=== PATIENT | male | born 1940 ===

== ENCOUNTER 2020-01-12 13:22 | Inpatient (IN) | payer MEDICARE, MEDICAID, SELFPAY ==
[2020-01-12] VITALS (12 sets, daily range): BP systolic 76–117; BP diastolic 49–88; PULSE 79–107; RESP 15–28; TEMP 36.6–36.8; O2SAT 96–100; BMI 43.3
--- NOTE | 2020-01-12 13:32 | ED_ITS ---
Entered by Roxi Neely, acting as scribe for Lexis Mon MD, [facility] [place] Bleed General: Chief complaint: GI Bleed Stated complaint: BLOODY STOOL, RESP DISTRESS Time Seen by Provider: 01/12/20 13:26 Source: patient, EMS and RN notes reviewed Mode of arrival: EMS Limitations: no limitations History of Present Illness: HPI Narrative: 79 yo male presents to ED with complaints of blood in his stool. He said this began a little bit last night and more this morning. He said he has gone twice today and one last night. He said there was a lot of blood today and it was bright red blood (EMS stated bright red and about 3 tablespoons of blood in commode). He said he has never had bleeding from his rectum before now and has never had hemorrhoids. His last colonoscopy was normal. He has COPD and is on oxygen at home. He has had no increased difficulty breathing. He said he began having abdominal pain last night and denies nausea. He said his bowel movements are soft and is a little lightheaded. (The patient states he had pain with the rectal exam.) The son states the blood was not in the stool and the toilet bowl had bright red blood. complaint: gross hematochezia Onset (ago): day(s) (1) Pain Consistency: constant Severity: severe Relieving factors: none Exacerbating factors: none Context: other (new onset) Associated symptoms: Reports abdominal pain (periumbilical, epigastric); Denies chills, fever(s), headache(s) or rash Treatments Prior to Arrival: none Review of Systems General: Reports: 10 or more systems reviewed and unremarkable except in HPI and below Const: Denies: fever, chills or body aches Eyes: Reports: blind spots; Denies: change in vision or blurry vision ENMT: Denies: throat pain, enlarged tonsils, painful swallowing, hoarseness, mouth pain or swelling of lips/tongue Card: Reports: chest pain; Denies: palpitations, irregular heart rhythm, edema or swelling of feet/ankles Resp: Denies: shortness of breath, productive cough or non-productive cough GI: Reports: abdominal pain (periumbilical, epigastric) : Denies: flank pain, painful urination, urinary frequency, urinary urgency or urinary hesitancy Musc: Denies: neck pain, back pain or extremity swelling Skin/Breast: Denies: rash, itching or redness Neuro: Denies: headache, numbness in extremities or weakness in extremities Endo: Denies: excessive urination, excessive thirst or tired all the time PFS ED PFSH: Medical History Advanced COPD Anxiety disorder Atrial fib/flutter, transient BPH (benign prostatic hyperplasia) Chronic anticoagulation Chronic steroid use Depression Hx of migraine headaches Osteoporosis Surgical History H/O pneumonectomy Family History Other CAD (coronary artery disease) Social History Smoking and tobacco status: former smoker Quit status (tobacco): has quit using tobacco Year quit tobacco: 40 ya Alcohol intake: never Household members: other Details: Son and [id number] Marital status: Current occupational status: retired Physical Exam Const: COMMON NORMALS: no apparent distress, average body habitus, oriented x3, no limitations, healthy appearing, alert and well nourished HENMT: COMMON NORMALS: normocephalic, head/scalp atraumatic and moist oral mucous membranes HEAD & SCALP: normocephalic and atraumatic Eye: COMMON NORMALS: PERRL, EOMs intact bilaterally, conjunctivae normal and no scleral icterus CONJUNCTIVA: Yes conjunctivae normal PUPIL: Yes PERRL Neck/C-Spine: COMMON NORMALS: full ROM, supple, no meningeal signs, no JVD and no carotid bruits Chest: COMMONS NORMALS: inspection of chest normal and palpation of chest normal Resp: COMMON NORMALS: normal respiratory effort, no retractions, no use of accessory muscles, clear to auscultation bilaterally and percussion normal AUSCULTATION: clear to auscultation bilaterally PERCUSSION: percussion normal Cardio: COMMON NORMALS: no JVD, regular rate, regular rhythm, S1 normal heart sound, S2 normal heart sound, no gallops, no clicks, no murmurs, no rub and peripheral pulses 2+ throughout RATE: regular rate RHYTHM: regular rhythm HEART SOUNDS: S1 normal and S2 normal PERIPHERAL PULSES: pulses 2+ throughout GI: COMMON NORMALS: normal to inspection, nondistended, normoactive bowel sounds, soft to palpation, no hepatosplenomegaly, no masses and no bruits PALPATION: Yes soft, Yes tender Details: other (epigastric) and Yes no hepatosplenomegaly RECTAL EXAM: Yes normal sphincter tone, Yes heme positive stool and Yes tenderness OTHER: gross blood on the gloved finger. : COMMON NORMALS: Yes no CVA tenderness BLADDER/KIDNEY EXAM: Yes no CVA tenderness Back/Pelvis: COMMON NORMALS: no CVA tenderness Extremity: COMMON NORMALS: normal to inspection, full ROM, normal capillary refill, no calf tenderness and no pedal edema Neuro: COMMON NORMALS: oriented x3 SENSORIUM/ORIENTATION: Yes alert MENINGEAL SIGNS: Yes no meningeal signs Skin: COMMON NORMALS: no rashes or lesions noted, no wounds, skin turgor normal, no jaundice, no petechiae and no mottling GENERAL SKIN EXAM: no rashes or lesions noted and turgor normal Course Consultations: Consultation #1: Dr. Christie, surgeon. The patient should be admitted to the hospitalist and he will see the patient on the floor. Consultation #2: Dr. Viramontes, he kindly accepted the patient to his service. Vital Signs: Vital signs: Vital Signs Temperature 97.9 F 01/12/20 20:00 Pulse Rate 88 01/12/20 22:00 Respiratory Rate 15 01/12/20 22:00 Blood Pressure 110/71 01/12/20 22:00 Pulse Oximetry 100 01/12/20 22:00 MDM - GI Bleed [facility] Narrative: Medical decision making narrative: 79-year-old male with acute lower GI bleed. In the emergency department he had a few episodes of gross blood per rectum and significant amounts. The patient was mildly tachycardic in the high 90s to the low 100s. Blood pressure remained stable in the emergency department. Hemoglobin was stable. The patient is admitted to the hospital for further evaluation and management by the surgeon. Medical Records: Attestation: I reviewed the patient's medical records. Lab Data: Attestation: I reviewed the patient's lab results. Labs: Lab Results 01/12/20 01/12/20 01/12/20 Range/Units 13:56 13:56 13:56 WBC 12.7 H (4.0-10.0) 10^3/ uL RBC 3.70 L (4.1-5.3) 10^6/u L Hgb 11.3 L (11.7-16.6) g/dL Hct 36.7 L (42.0-52.0) % MCV 99.2 H (80-94) fL MCH 30.5 (28.0-34.0) pg MCHC 30.8 (30.0-36.0) g/dL RDW 14.3 (12.1-15.1) % Plt Count 197 (130-400) 10^3/c mm MPV 9.1 (7.4-10.4) fL Neut % (Auto) 79.8 % Lymph % (Auto) 6.8 % Schley % (Auto) 6.2 % Eos % (Auto) 0.3 % Baso % (Auto) 0.4 % Neut # (Auto) 10.2 H (1.8-7.7) 10^3/u L Lymph # (Auto) 0.9 (0.8-4.8) 10^3/u L Schley # (Auto) 0.8 (0.2-0.9) 10^3/u L Eos # (Auto) 0.0 (0.0-0.8) 10^3/u L Baso # (Auto) 0.1 (0.0-0.1) 10^3/u L Nucleated RBC % (a uto) 0 % Total Counted 100 (0-100) Segmented Neutroph ils 69 % Band Neutrophils 2.0 % Lymphocytes (Manua l) 13 % Monocytes (Manual) 1.0 % Absolute Monocytes 0.1 (0.1-0.6) 10^3/c mm Metamyelocytes 3.0 % Myelocytes 2.0 % Nucleated RBCs # 0.0 /100WBC Platelet Estimate Normal (Normal) PT 15.40 H (10.5-13.3) SECO NDS INR 1.18 (0.8-1.2) Sodium 140 (136-145) mmol/L Potassium 4.4 (3.5-5.1) mmol/L Chloride 96 L (98-107) mmol/L Carbon Dioxide 36 H (22-29) mmol/L Anion Gap 12.4 (5-19) BUN 29 H (8-23) mg/dL Creatinine 0.9 (0.7-1.2) mg/dL Glucose 110 (65-115) mg/dL Lactate (0.5-2.2) mmol/L Calcium 9.6 (8.5-10.5) mg/dL Total Bilirubin 0.3 (0.15-1.2) mg/dL AST 18 (0-40) U/L ALT 13 (0-41) U/L Alkaline Phosphata se 42 (40-130) IU/L NT-Pro-B Natriuret Pep 150 (0-450) pg/mL Total Protein 6.2 L (6.6-8.7) g/dL Albumin 3.3 L (3.5-5.2) g/dL Globulin 2.9 (1.3-4.6) g/dL Urine Color (Yellow) Urine Appearance (CLEAR) Urine pH (5-7) Ur Specific Gravit y (1.005-1.030) Urine Protein (Negative) Urine Glucose (UA) (Normal) Urine Ketones (Negative) Urine Occult Blood (Negative) Urine Nitrate (Negative) Urine Bilirubin (NEGATIVE) Urine Urobilinogen (Negative) mg/dL Ur Leukocyte Bonnie ase (Negative) Blood Type Antibody Screen Crossmatch 01/12/20 01/12/20 01/12/20 Range/Units 13:56 13:56 14:47 WBC (4.0-10.0) 10^3/ uL RBC (4.1-5.3) 10^6/u L Hgb (11.7-16.6) g/dL Hct (42.0-52.0) % MCV (80-94) fL MCH (28.0-34.0) pg MCHC (30.0-36.0) g/dL RDW (12.1-15.1) % Plt Count (130-400) 10^3/c mm MPV (7.4-10.4) fL Neut % (Auto) % Lymph % (Auto) % Schley % (Auto) % Eos % (Auto) % Baso % (Auto) % Neut # (Auto) (1.8-7.7) 10^3/u L Lymph # (Auto) (0.8-4.8) 10^3/u L Schley # (Auto) (0.2-0.9) 10^3/u L Eos # (Auto) (0.0-0.8) 10^3/u L Baso # (Auto) (0.0-0.1) 10^3/u L Nucleated RBC % (a uto) % Total Counted (0-100) Segmented Neutroph ils % Band Neutrophils % Lymphocytes (Manua l) % Monocytes (Manual) % Absolute Monocytes (0.1-0.6) 10^3/c mm Metamyelocytes % Myelocytes % Nucleated RBCs # /100WBC Platelet Estimate (Normal) PT (10.5-13.3) SECO NDS INR (0.8-1.2) Sodium (136-145) mmol/L Potassium (3.5-5.1) mmol/L Chloride (98-107) mmol/L Carbon Dioxide (22-29) mmol/L Anion Gap (5-19) BUN (8-23) mg/dL Creatinine (0.7-1.2) mg/dL Glucose (65-115) mg/dL Lactate 2.1 (0.5-2.2) mmol/L Calcium (8.5-10.5) mg/dL Total Bilirubin (0.15-1.2) mg/dL AST (0-40) U/L ALT (0-41) U/L Alkaline Phosphata se (40-130) IU/L NT-Pro-B Natriuret Pep (0-450) pg/mL Total Protein (6.6-8.7) g/dL Albumin (3.5-5.2) g/dL Globulin (1.3-4.6) g/dL Urine Color Yellow (Yellow) Urine Appearance Clear (CLEAR) Urine pH 6 (5-7) Ur Specific Gravit y 1.010 (1.005-1.030) Urine Protein Neg (Negative) Urine Glucose (UA) Norm (Normal) Urine Ketones Negative (Negative) Urine Occult Blood Neg (Negative) Urine Nitrate Negative (Negative) Urine Bilirubin Neg (NEGATIVE) Urine Urobilinogen Norm (Negative) mg/dL Ur Leukocyte Bonnie ase Negative (Negative) Blood Type O Negative Antibody Screen Negative Crossmatch See Detail 01/12/20 Range/Units 15:44 WBC (4.0-10.0) 10^3/ uL RBC (4.1-5.3) 10^6/u L Hgb 11.2 L (11.7-16.6) g/dL Hct 37.2 L (42.0-52.0) % MCV (80-94) fL MCH (28.0-34.0) pg MCHC (30.0-36.0) g/dL RDW (12.1-15.1) % Plt Count (130-400) 10^3/c mm MPV (7.4-10.4) fL Neut % (Auto) % Lymph % (Auto) % Schley % (Auto) % Eos % (Auto) % Baso % (Auto) % Neut # (Auto) (1.8-7.7) 10^3/u L Lymph # (Auto) (0.8-4.8) 10^3/u L Schley # (Auto) (0.2-0.9) 10^3/u L Eos # (Auto) (0.0-0.8) 10^3/u L Baso # (Auto) (0.0-0.1) 10^3/u L Nucleated RBC % (a uto) % Total Counted (0-100) Segmented Neutroph ils % Band Neutrophils % Lymphocytes (Manua l) % Monocytes (Manual) % Absolute Monocytes (0.1-0.6) 10^3/c mm Metamyelocytes % Myelocytes % Nucleated RBCs # /100WBC Platelet Estimate (Normal) PT (10.5-13.3) SECO NDS INR (0.8-1.2) Sodium (136-145) mmol/L Potassium (3.5-5.1) mmol/L Chloride (98-107) mmol/L Carbon Dioxide (22-29) mmol/L Anion Gap (5-19) BUN (8-23) mg/dL Creatinine (0.7-1.2) mg/dL Glucose (65-115) mg/dL Lactate (0.5-2.2) mmol/L Calcium (8.5-10.5) mg/dL Total Bilirubin (0.15-1.2) mg/dL AST (0-40) U/L ALT (0-41) U/L Alkaline Phosphata se (40-130) IU/L NT-Pro-B Natriuret Pep (0-450) pg/mL Total Protein (6.6-8.7) g/dL Albumin (3.5-5.2) g/dL Globulin (1.3-4.6) g/dL Urine Color (Yellow) Urine Appearance (CLEAR) Urine pH (5-7) Ur Specific Gravit y (1.005-1.030) Urine Protein (Negative) Urine Glucose (UA) (Normal) Urine Ketones (Negative) Urine Occult Blood (Negative) Urine Nitrate (Negative) Urine Bilirubin (NEGATIVE) Urine Urobilinogen (Negative) mg/dL Ur Leukocyte Bonnie ase (Negative) Blood Type Antibody Screen Crossmatch Imaging Data^: CXR: Radiologist's impression: [place] [address] XRay Report Signed Patient: Mauricio Bah SRUnit #: [id number] : 2Acct#:[id number] Age/Sex: 79 / MADM Date: 01/12/20 Loc: [facility]/Bed: Attending Dr: Ordering Provider/Ordering MD: Lexis Mon MD, [facility] [place] Service: 01/12/20 Procedure(s): XR chest 1V portable [id number] Accession Number(s): [id number] Report Number: [id number] WS: [id number] XR chest 1V portable [id number] REASON FOR EXAM: shortness of breath FINDINGS: A large pneumatocele is replacing the right upper lung. Large bullous emphysematous changes throughout both lung sarkar. There is no definite pneumonia is seen. Coronary bypass findings are seen. Prominent sternotomy changes There is arteriosclerotic changes in the arch of the aorta. 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 Bullous emphysema throughout the remaining lung sarkar. Coronary bypass changes. Arteriosclerotic changes in the arch of the aorta. Dictated By:Dillon Jessica DO Signed By:Dillon Jessica DOSigned Date/Time:01/12/20 1420 DD/ Discharge Plan Discharge Patient Disposition: Admitted As Inpatient Admit Provider: Rommel Rand Clinical Impression: Lower gastrointestinal hemorrhage Condition: Stable Interventions: ED Discharge Assessment Last Done: 01/12/20 17:26 Discharge Date/Time: 01/12/20 17:26 Coding Level of Care Code ED Floor Tiling Professional for Chg Fwd Exam Comprehensive The documentation recorded by the Chin hernandez Valerie R, accurately reflects the service I personally performed and the decisions made by Yaa villa Adegoke I, MD, [facility] [place] 12, 2020 13:22
--- NOTE | 2020-01-12 13:44 | XR_ITS ---
WS: [id number] XR chest 1V portable [id number] REASON FOR EXAM: shortness of breath FINDINGS: A large pneumatocele is replacing the right upper lung. Large bullous emphysematous changes throughout both lung sarkar. There is no definite pneumonia is seen. Coronary bypass findings are seen. Prominent sternotomy humphrey es There is arteriosclerotic changes in the arch of the aorta. 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 Bullous emphysema throughout the remaining lung sarkar. Coronary bypass changes. Arteriosclerotic changes in the arch of the aorta.
--- NOTE | 2020-01-12 13:47 | CTR_ITS ---
PROCEDURE INFORMATION: Exam: CT Abdomen And Pelvis With Contrast Exam date and time: 01/12/2020 2:18 PM Age: 79 years old Clinical indication: Other: Rectal bleeding TECHNIQUE: Imaging protocol: Computed tomography of the abdomen and pelvis with intravenous contrast. Total DLP: 546.39 mGy-cm Radiation optimization: All CT scans at this facility use at least one of these dose optimization techniques: automated exposure control; mA and/or kV adjustment per patient size (includes targeted exams where dose is matched to clinical indication); or iterative reconstruction. Contrast material: OMNIPAQUE 300; Contrast volume: 95 ml; Contrast route: IV; COMPARISON: No relevant prior studies available. FINDINGS: Lungs: There are extensive changes of COPD at the lung bases. Mediastinum: There is a small hiatal hernia. Liver: There is a small benign-appearing 7 mm sized cyst in the left lobe of the liver. There are 2 other smaller hypodensities in the liver which is too small to definitively characterize by CT scanning.There is a diffuse decrease in hepatic parenchymal density, consistent with mild fatty infiltration. Gallbladder and bile ducts: The gallbladder is normal. Pancreas: The pancreas is normal. Spleen: The spleen is normal. Adrenals: The adrenal glands are normal. Kidneys and ureters: There are multiple simple renal cysts. Largest cyst in the right kidney is 2.3 cm, and on the left is 2.2 cm. No further follow-up is necessary. Stomach and bowel: Moderate diverticulosis is present in the distal colon. There is no evidence of colitis/diverticulitis. Appendix: A normal appendix is identified. Intraperitoneal space: Unremarkable. No free air. No significant fluid collection. 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 Lymph nodes: Unremarkable. No enlarged lymph nodes. Bladder: Unremarkable as visualized. Reproductive: Unremarkable as visualized. Bones/joints: The lumbar spine demonstrates mild degenerative changes at multiple levels. Soft tissues: Unremarkable. CT/CT abdomen pelvis w con* [id number] IMPRESSION: No acute findings. COMMENT: Consistent with the [employer]'s Incidental Findings Committee white paper (J Am Jessi Radiol 2018): Any incidental cystic renal lesion classified in this report as too small to characterize or simple appearing is likely a benign cyst. No follow-up imaging is recommended for these lesions per consensus recommendations based on imaging criteria. Radiation Dose CTDIVOL = (mGy): DLP = 546.39 (mGy-cm)
[2020-01-12 14:04] LABS: Basophils # 0.1 10^3/uL (0.0-0.1); Basophils % 0.4 %; Eosinophils % 0.3 %; Hematocrit 36.7 % (42.0-52.0); Hemoglobin 11.3 g/dL (11.7-16.6); Lymphocytes # 0.9 10^3/uL (0.8-4.8); Lymphocytes % 6.8 %; Mean Corpuscular HGB Conc 30.8 g/dL (30.0-36.0); Mean Corpuscular Hemoglobin 30.5 pg (28.0-34.0); Mean Corpuscular Volume 99.2 fL (80-94); Mean Platelet Volume 9.1 fL (7.4-10.4); Monocytes # 0.8 10^3/uL (0.2-0.9); Monocytes % 6.2 %; Neutrophils # 10.2 10^3/uL (1.8-7.7); Neutrophils % 79.8 %; Nucleated Red Blood Cells % 0 %; Platelet Count 197 10^3/cmm (130-400); Red Cell Distribution Width 14.3 % (12.1-15.1); White Blood Count 12.7 10^3/uL (4.0-10.0)
[2020-01-12] MEDS: pantoprazole 40 mg SDV 80 MG IVP (14:10)
--- NOTE | 2020-01-12 14:14 | PC.NURSE ---
Attempted to collect urine. Patient unable to provide sample.
[2020-01-12 14:16] LABS: INR 1.18 (0.8-1.2)
[2020-01-12 14:20] LABS: Lactate (Lactic Acid level) 2.1 mmol/L (0.5-2.2)
[2020-01-12 14:31] LABS: Alanine Aminotransferase 13 U/L (0-41); Albumin Level 3.3 g/dL (3.5-5.2); Alkaline Phosphatase 42 IU/L (40-130); Anion Gap 12.4 (5-19); Aspartate Amino Transferase 18 U/L (0-40); Blood Urea Nitrogen 29 mg/dL (8-23); Calcium 9.6 mg/dL (8.5-10.5); Carbon Dioxide 36 mmol/L (22-29); Chloride 96 mmol/L (98-107); Globulin 2.9 g/dL (1.3-4.6); Glucose 110 mg/dL (65-115); NT Pro B Type Natriuretic Pept 150 pg/mL (0-450); Potassium 4.4 mmol/L (3.5-5.1); Sodium 140 mmol/L (136-145); Total Bilirubin 0.3 mg/dL (0.15-1.2); Total Protein 6.2 g/dL (6.6-8.7)
[2020-01-12 14:44] LABS: Absolute Segmented Neutrophil 8.7 10/cmm (1.6-7.1); Band Neutrophils Absolute 0.3 10^3/cmm (0.0-1.2); Lymphocytes 13 %; Monocytes Absolute 0.1 10^3/cmm (0.1-0.6); Platelet Estimate Normal (Normal); Segmented Neutrophils 69 %; Total Cells Counted 100 (0-100)
--- NOTE | 2020-01-12 15:03 | PC.NURSE ---
Pt had approx 200 ml of dark maroon stool with two large blood clots noted. Sample obtained, Dr Mon notified. Pt cleaned and repositioned for comfort.
[2020-01-12 15:07] LABS: Add Urine Microscopic? NO
[2020-01-12 15:12] LABS: Bilirubin Urine Neg (NEGATIVE); Blood Urine Neg (Negative); Glucose Urine UA Norm (Normal); Ketones Urine Negative (Negative); Leukocyte Esterase Urine Negative (Negative); Nitrate Urine Negative (Negative); Protein Urine Neg (Negative); Urine Appearance Clear (CLEAR); Urine Color Yellow (Yellow); Urobilinogen Urine Norm (Negative); pH Urine 6 (5-7)
--- NOTE | 2020-01-12 15:39 | ECG_ITS ---
Measurements Intervals [place] Rate: 106 P: 91 OK: 161 QRS: -70 QRSD: 104 T: 82 QT: 317 QTc: 421 SINUS TACHYCARDIA LEFT AXIS DEVIATION [QRS AXIS < -30] INCOMPLETE RIGHT BUNDLE BRANCH BLOCK [90+ ms QRS DURATION, TERMINAL R IN V1/V2, 40+ ms S IN I/aVL/V4/V5/V6] Compared to ECG 10/05/2019 00:37:02 Left-axis deviation now present Incomplete right bundle-branch block now present Left anterior fascicular block no longer present ST (T wave) deviation no longer present Electronically Signed On 01-12-2020 16:07:55 BEARING INSPECTOR by Foreign Mcmanus M.D. [email or web address]
[2020-01-12 15:53] LABS: Hematocrit 37.2 % (42.0-52.0); Hemoglobin 11.2 g/dL (11.7-16.6)
[2020-01-12] MEDS: iohexol 300 mg/mL 100 mL Btl IV (17:02)
--- NOTE | 2020-01-12 17:20 | PM.HP ---
Providers/Chief Complaint Primary Care Provider: Leatha Alvarez MD Chief Complaint: LOWER GI BLEED History of Present Illness Mauricio Bah SR is a 79 year old male with history of atrial fibrillation, on chronic anticoagulation with Eliquis, on daily small dose aspirin, with history of advanced COPD, on chronic prednisone, most recent prescription 10 mg daily, usually with 20 mg omeprazole, follows in office with Dr. Ruggiero, presented to emergency department for evaluation of recurrent bloody bowel movements, dark/maroon in color. First time occurring yesterday, although having only small amount, then today having several more. Denies ever having this issue in the past. Denies having any history of cirrhosis or esophageal varices. Had a colonoscopy about 4 years ago. Reports never had upper endoscopy. He is otherwise been close to his baseline health. He is chronically on 5 L nasal cannula for COPD. Denies feeling any worse in terms of his breathing. Reports for about 4 days has been having ongoing urinary tract infection for which he has been taking cranberry juice. In ER hemoglobin is 11.2, compared to his usual 12-13. Heart rate is 107, although it is not clear whether this may be chronic secondary to his chronic respiratory failure/COPD. He says was told previously by his baggage porter head that his lung disease makes his heart work harder . He is having some ill-defined abdominal discomfort centrally. Review of Systems Const: Denies: fever, chills, body aches or malaise Eyes: Denies: change in vision or eye redness ENMT: Denies: throat pain, oral sores/lesions or ear pain Card: Reports: shortness of breath on exertion; Denies: chest pain, edema or pre-syncope Resp: Denies: shortness of breath, productive cough, change in phlegm color or coughing up blood GI: Reports: blood in stool and black tarry stool; Denies: abdominal pain, nausea, vomiting, diarrhea or constipation : Denies: flank pain, difficulty urinating, urinary frequency or blood in urine Musc: Denies: back pain, joint swelling or redness Skin/Breast: Denies: rash, sores or new lesion Neuro: Denies: headache, numbness in extremities, weakness in extremities, dizziness, confusion or seizure-like activity Endo: Denies: excessive urination or excessive thirst [place]/Lymph: Reports: easy bruising and easy bleeding; Denies: purpura All/Imm: Denies: hives, throat swelling or tongue swelling Medications/Allergies Home Medications Medication Instructions Recorded Confirmed Last Taken Type Slow Fe 1 tab PO DAILY 01/12/20 01/12/20 01/12/20 History alendronate 70 mg PO Q7D 01/12/20 01/12/20 01/07/20 History apixaban [Eliquis] 5 mg PO BID 01/12/20 01/12/20 01/12/20 History aspirin [Aspirin Low Dose] 81 mg PO DAILY 01/12/20 01/12/20 01/11/20 History budesonide 0.5 mg INHALATION BID 01/12/20 01/12/20 01/12/20 History calcium carbonate [Calcium 600] 600 mg PO DAILY 01/12/20 01/12/20 01/12/20 History cholecalciferol (vitamin D3) 2,000 unit PO BID 01/12/20 01/12/20 01/12/20 History [Vitamin D3] fluticasone propionate 1 spray INTRANASAL BID 01/12/20 01/12/20 01/12/20 History formoterol fumarate [Perforomist] 2 ml INHALATION BID 01/12/20 01/12/20 01/12/20 History furosemide 40 mg PO DAILY 01/12/20 01/12/20 01/12/20 History hydroxyzine HCl 10 mg PO Q4D PRN 01/12/20 01/12/20 Unknown History levalbuterol HCl See Rx Instructions .ROUTE .COMPLEX 01/12/20 01/12/20 01/12/20 History loratadine 10 mg PO DAILY 01/12/20 01/12/20 01/12/20 History metoprolol succinate 12.5 mg PO DAILY 01/12/20 01/12/20 01/11/20 History montelukast 10 mg PO BEDTIME 01/12/20 01/12/20 01/11/20 History nebivolol [Bystolic] 5 mg PO BID 01/12/20 01/12/20 01/12/20 History omeprazole 20 mg PO DAILY 01/12/20 01/12/20 01/11/20 History potassium chloride 10 meq PO DAILY 01/12/20 01/12/20 01/12/20 History prednisone 10 mg PO DAILY 01/12/20 01/12/20 01/12/20 History revefenacin [Yupelri] 175 mcg INHALATION DAILY 01/12/20 01/12/20 01/12/20 History sertraline 25 mg PO DAILY 01/12/20 01/12/20 01/12/20 History sumatriptan succinate [Imitrex] 0 mg PO .COMPLEX 01/12/20 01/12/20 Unknown History tamsulosin 0.4 mg PO DAILY 01/12/20 01/12/20 01/11/20 History Allergies Allergy/AdvReac Type Severity Reaction Status Date / Time albuterol AdvReac Intermediate Tachycardia Verified 01/12/20 17:09 Penicillins AdvReac Intermediate Tachycardia Verified 01/12/20 17:02 PFSH Acute PFSH: Medical History Advanced COPD Anxiety disorder Atrial fib/flutter, transient BPH (benign prostatic hyperplasia) Chronic anticoagulation Chronic steroid use Depression Hx of migraine headaches Osteoporosis Surgical History H/O pneumonectomy Family History Other CAD (coronary artery disease) Social History Smoking and tobacco status: former smoker Quit status (tobacco): has quit using tobacco Year quit tobacco: 40 ya Alcohol intake: never Household members: other Details: Son and [id number] Marital status: Current occupational status: retired Vitals/I&O/Wt Last Vital Signs Temp 98.3 F 01/12/20 13:25 Pulse 107 H 01/12/20 13:25 Resp 22 H 01/12/20 13:25 BP 113/88 01/12/20 13:25 Pulse Ox 100 01/12/20 13:25 01/12/20 01/12/20 01/12/20 06:59 14:59 22:59 Output Total 500 / 500 Balance -500 / -500 Weight last 48 hrs Weight 145 kg Physical Exam Const: COMMON NORMALS: no apparent distress and oriented x3 HENMT: COMMON NORMALS: oropharynx normal Neck/C-Spine: COMMON NORMALS: no JVD Chest: CHEST: Yes abnormal inspection of the chest barrel chest Resp: AUSCULTATION: diminished lung sounds Cardio: COMMON NORMALS: no JVD, regular rhythm, S1 normal heart sound, S2 normal heart sound and no murmurs RATE: tachycardic RHYTHM: regular rhythm HEART SOUNDS: S1 normal and S2 normal GI: COMMON NORMALS: normal to inspection, nondistended, normoactive bowel sounds and soft to palpation PALPATION: Yes soft and Yes tender Details: other (Mildly tender to palpation centrally) Extremity: COMMON NORMALS: no joint enlargement and no pedal edema Neuro: COMMON NORMALS: oriented x3 and moves all extremities Skin: COMMON NORMALS: no rashes or lesions noted GENERAL SKIN EXAM: no rashes or lesions noted Data : 01/12/20 15:44 01/12/20 13:56 A&P Assessment and plan (1) GI bleeding: With maroon-colored bowel movements today. On chronic anticoagulation with Eliquis due to A. fib. Hold anticoagulation, hold aspirin. Hemoglobin 10-11.2, his usual is around 12-13. Requested for 2 units PRBC on hold. Will follow hemoglobin level. Appreciate surgery assessment. Monitor vital signs. He has mild tachycardia, although unclear whether this may be chronic secondary to advanced COPD. Admit to ICU. Etiology is not entirely clear, appears may be upper GI bleeding with dark/maroon-colored stool, with chronic prednisone use. Continue IV PPI. Hold prednisone for now. Monitor respiratory status. Continue inhaled steroids. Has vague abdominal discomfort, no rigidity on palpation. Will quest for lipase. Status: Acute Code(s): K92.2 - Gastrointestinal hemorrhage, unspecified (2) Advanced COPD: On chronic on 10 mg most recently. 5 L oxygen by nasal cannula chronically. Discussed with him and his son if endoscopy were needed he would be at somewhat elevated risk of given his chronic respiratory failure. Status: Acute Code(s): J44.9 - Chronic obstructive pulmonary disease, unspecified (3) Chronic anticoagulation: With Eliquis secondary to A. fib. Hold. He understands that long-term he would benefit from continue Eliquis due to elevated risk of stroke. Currently understands it will need to be held due to GI bleeding. Understands he may be at elevated risk of endoscopic evaluation due to his chronic respiratory failure. Would be agreeable to proceed if this were necessary. Status: Acute Code(s): Z79.01 - longterm (current) use of anticoagulants (4) Chronic steroid use: As above Status: Acute (5) Osteoporosis: Hold bisphosphonate for now due to GI bleed give PPI. Status: Acute Code(s): M81.0 - Age-related osteoporosis without current pathological fracture (6) BPH (benign prostatic hyperplasia): Continue Flomax. Monitor for orthostatic symptoms. Maintain orthostatic precautions. Status: Acute Code(s): N40.0 - Benign prostatic hyperplasia without lower urinary tract symptoms Attestations Medical Necessity Statement*: Admission of over 2 midnights is continued for assessment management of GI bleeding, on anticoagulation. Coding Level of Care Code Acute Manufacturing Team Member for Kaylee Peterson Diagnoses GI bleeding K92.2 Advanced COPD J44.9 Chronic anticoagulation Z79.01 Chronic steroid use Osteoporosis M81.0 BPH (benign prostatic hyperplasia) N40.0
[2020-01-12 18:06] LABS: Hematocrit 34.7 % (42.0-52.0); Hemoglobin 10.6 g/dL (11.7-16.6)
[2020-01-12 18:19] LABS: Lipase 17 U/L (13-60)
[2020-01-12] MEDS: budesonide 0.5 mg/2 mL Neb INHALATION (20:42)
[2020-01-12] MEDS: levalbuterol 0.63 mg/3 mL Neb NEBULIZER (20:45)
[2020-01-12] MEDS: montelukast sodium 10 mg Tablet PO (21:46)
[2020-01-12 23:59] LABS: Hematocrit 31.1 % (42.0-52.0); Hemoglobin 9.5 g/dL (11.7-16.6)
[2020-01-13] VITALS (27 sets, daily range): BP systolic 89–125; BP diastolic 54–80; PULSE 67–98; RESP 13–24; TEMP 36.7–37; O2SAT 94–100
[2020-01-13] MEDS: pantoprazole 40 mg SDV IVP ×2 (03:16→14:31)
[2020-01-13 04:57] LABS: Basophils % 0.3 %; Hematocrit 30.5 % (42.0-52.0); Hemoglobin 9.3 g/dL (11.7-16.6); Lymphocytes # 0.5 10^3/uL (0.8-4.8); Lymphocytes % 4.8 %; Mean Corpuscular HGB Conc 30.5 g/dL (30.0-36.0); Mean Corpuscular Hemoglobin 31.6 pg (28.0-34.0); Mean Corpuscular Volume 103.7 fL (80-94); Mean Platelet Volume 9.7 fL (7.4-10.4); Monocytes # 0.7 10^3/uL (0.2-0.9); Monocytes % 6.3 %; Neutrophils # 8.5 10^3/uL (1.8-7.7); Neutrophils % 82.1 %; Nucleated Red Blood Cells % 0 %; Platelet Count 168 10^3/cmm (130-400); Red Blood Count 2.94 10^6/uL (4.1-5.3); Red Cell Distribution Width 14.4 % (12.1-15.1); White Blood Count 10.4 10^3/uL (4.0-10.0)
[2020-01-13 05:15] LABS: Anion Gap 12.5 (5-19); Blood Urea Nitrogen 28 mg/dL (8-23); Calcium 8.9 mg/dL (8.5-10.5); Carbon Dioxide 32 mmol/L (22-29); Chloride 100 mmol/L (98-107); Creatinine Clr Calc Pharmacy 82.3988; Glucose 121 mg/dL (65-115); Osmolality Calculated 288 mOsm/kg (285-295); Potassium 4.5 mmol/L (3.5-5.1); Sodium 140 mmol/L (136-145)
[2020-01-13 06:17] LABS: Slide Review Slide Review Perform
[2020-01-13] MEDS: FUROsemide 40 mg Tablet PO (07:40)
[2020-01-13] MEDS: levalbuterol 0.63 mg/3 mL Neb INHALATION ×2 (08:31→21:10)
[2020-01-13] MEDS: budesonide 0.5 mg/2 mL Neb INHALATION ×2 (08:31→21:10)
--- NOTE | 2020-01-13 08:50 | PC.NURSE ---
Assisted patient to bedside commode. Patient passed gas, no stool was passed but there was a brown smear on the toilet paper.
[2020-01-13] MEDS: calcium carb-vit d 600mg/400unit 1 Tablet 1 EACH PO (08:59)
[2020-01-13] MEDS: sertraline 50 mg Tablet 25 MG PO (08:59)
[2020-01-13] MEDS: tamsulosin 0.4 mg Capsule PO (09:00)
[2020-01-13] MEDS: metoprolol succinate ER (24 HR) 25 mg Tablet 12.5 MG PO (09:00)
[2020-01-13 13:48] LABS: Hematocrit 28.7 % (42.0-52.0); Hemoglobin 8.7 g/dL (11.7-16.6)
--- NOTE | 2020-01-13 14:23 | PC.CHAP ---
Pastoral Care Encounter/Spiritual Assessment Type of Contact [] Declined dip filler visit [] Patient/Family/Request visit [] Outpatient visit [] Follow-up visit [] Physician referral [] Code/Alert [] Routine visit [] Staff referral [] Actively dying [] Patient sleeping [] Family support [] [] Out of room [] Palliative care [] [] Receiving care in room [] Pre-surgical visit [] Trauma [] Long length of stay [x] ICU visit [] Other: Relational/Emotional Strength [x] Patient feels connected with others/family/visitors/staff [] Distress [] Loneliness/isolation [] Abandonment Spirituality of Patient [x] Person of Maria [place]z [] Attends Advent of their [place] [x] Believes in Prayer [] Reads Bible or Jew materials [] There are Spiritual issues to be addressed Basket Turner Interventions x Prayer [x] Active listening [x] Non-anxious presence [x] Spiritual/emotional support [] Crisis/trauma care [] Spiritual counseling [] Bereavement support [] Provided bereavement packet [] Provided Bible/devotional materials Pastoral Care Encounter/Spiritual Assessment Type of Contact [] Declined dip filler visit [] Patient/Family/Request visit [] Outpatient visit [] Follow-up visit [] Physician referral [] Code/Alert [] Routine visit [] Staff referral [] Actively dying [] Patient sleeping [] Family support [] [] Out of room [] Palliative care [] [] Receiving care in room [] Pre-surgical visit [] Trauma [] Long length of stay [] ICU visit [] Other: Relational/Emotional Strength [x] Patient feels connected with others/family/visitors/staff [] Distress [] Loneliness/isolation [] Abandonment Spirituality of Patient [x] Person of [place] [] Attends Advent of their [place] [x] Believes in Prayer [] Reads Bible or Jew materials [] There are Spiritual issues to be addressed Basket Turner Interventions [x] Prayer [x] Active listening [x] Non-anxious presence [x] Spiritual/emotional support [] Crisis/trauma care [] Spiritual counseling [] Bereavement support [] Provided bereavement packet [] Provided Bible/devotional materials [] Provided toy/stuffed animal, coloring book to patient or family member [] Provided Communion [x] Anointing/[place] [] Salvation [] Completed spiritual assessment [] Other: Impact on Illness or Injury [] Angry [] Fearful x] Anxious [] Often cries [] Exhaustion [] Unable to work [] Unable to attend islam [] Unable to walk/stand [] Unable to read [] Unable to drive [] Unable to eat/drink [] Unable to sleep [] Unable to be with family [] Patient intubated [] Other: Summary Prayer with patient and son and daughter Time spent with patient 8 [] Provided toy/stuffed animal, coloring book to patient or family member [] Provided Communion [x] Anointing/[place] [] Salvation [] Completed spiritual assessment [] Other: Impact on Illness or Injury [] Angry [] Fearful [x] Anxious [] Often cries [] Exhaustion [] Unable to work [] Unable to attend islam [] Unable to walk/stand [] Unable to read [] Unable to drive [] Unable to eat/drink [] Unable to sleep [] Unable to be with family [] Patient intubated [] Other: Summary Had prayer with he and family member Time spent with patient 8
--- NOTE | 2020-01-13 14:49 | PC.NURSE ---
Re-educated patient on skin breakdown prevention. Discussed need to turn q2 and remain off right side as much as possible. Patient verbalized understanding. When rounding on patient he had turned himself back onto his right side. Offered to help patient turn on left side or readjust to relieve pressure from right hip but patient refused at this time. Re-educated on need to relieve pressure from right side by not lying on right hip. Patient voiced understanding.
[2020-01-13] MEDS: montelukast sodium 10 mg Tablet PO (17:29)
--- NOTE | 2020-01-13 17:50 | PM.PN ---
Subjective Subjective: Interval history: No further bloody bowel movements. No abdominal or other pain. Vitals/I&O/Wt Last Vital Signs Temp 98.6 F 01/13/20 08:00 Pulse 72 01/13/20 16:00 Resp 15 01/13/20 16:00 BP 102/62 01/13/20 16:00 Pulse Ox 100 01/13/20 16:00 01/13/20 01/13/20 01/13/20 06:59 14:59 22:59 Intake Total 840 / 840 Output Total 1000 / 1500 500 / 500 225 / 725 Balance -1000 / -1380 340 / 340 -225 / 115 Weight last 48 hrs Weight 71.94 kg Weight 145 kg Physical Exam Const: COMMON NORMALS: no apparent distress and oriented x3 HENMT: COMMON NORMALS: oropharynx normal Neck/C-Spine: COMMON NORMALS: no JVD Chest: CHEST: Yes abnormal inspection of the chest barrel chest Resp: AUSCULTATION: diminished lung sounds Cardio: COMMON NORMALS: no JVD, regular rhythm, S1 normal heart sound, S2 normal heart sound and no murmurs RATE: tachycardic RHYTHM: regular rhythm HEART SOUNDS: S1 normal and S2 normal GI: COMMON NORMALS: normal to inspection, nondistended, normoactive bowel sounds and soft to palpation PALPATION: Yes soft and No tender Extremity: COMMON NORMALS: no joint enlargement and no pedal edema Neuro: COMMON NORMALS: oriented x3 and moves all extremities Skin: COMMON NORMALS: no rashes or lesions noted GENERAL SKIN EXAM: no rashes or lesions noted Data : 01/13/20 13:08 01/13/20 04:00 A&P Assessment and plan (1) GI bleeding: No further bloody bowel movements. Hemoglobin with gradual downtrend, however, appears relatively stable. Lowest 8.7 this afternoon. No tachycardia. Blood pressure stable. With maroon-colored bowel movements on 01/12. On chronic anticoagulation with Eliquis due to A. fib. Hold anticoagulation, hold aspirin. Hemoglobin usual is around 12-13. Requested for 2 units PRBC on hold. Will follow hemoglobin level. Awaiting surgery assessment for endoscopic evaluation. Monitor vital signs. He has mild tachycardia, although unclear whether this may be chronic secondary to advanced COPD. Admit to ICU. Etiology is not entirely clear, appears may be upper GI bleeding with dark/maroon-colored stool, with chronic prednisone use. Continue IV PPI. Hold prednisone for now. Monitor respiratory status. Continue inhaled steroids. Vague abdominal discomfort resolved, no rigidity on palpation. Lipase normal. Status: Acute Code(s): K92.2 - Gastrointestinal hemorrhage, unspecified (2) Advanced COPD: On chronic prednisone 10 mg most recently. 5 L oxygen by nasal cannula chronically. Discussed with him and his son if endoscopy were needed he would be at somewhat elevated risk given his chronic respiratory failure. Status: Acute Code(s): J44.9 - Chronic obstructive pulmonary disease, unspecified (3) Chronic anticoagulation: With Eliquis secondary to A. fib. Hold. He understands that long-term he would benefit from continue Eliquis due to elevated risk of stroke. Currently understands it will need to be held due to GI bleeding. Understands he may be at elevated risk of endoscopic evaluation due to his chronic respiratory failure. Would be agreeable to proceed if this were necessary. Status: Acute Code(s): Z79.01 - snf (current) use of anticoagulants (4) Chronic steroid use: As above Status: Acute (5) Osteoporosis: Hold bisphosphonate for now due to GI bleed give PPI. Status: Acute Code(s): M81.0 - Age-related osteoporosis without current pathological fracture (6) BPH (benign prostatic hyperplasia): Continue Flomax. Monitor for orthostatic symptoms. Maintain orthostatic precautions. Status: Acute Code(s): N40.0 - Benign prostatic hyperplasia without lower urinary tract symptoms Attestations Medical Necessity Statement*: Continue admission for assessment management of acute GI bleed, acute blood loss anemia, with chronic anticoagulation. Coding Level of Care Code Acute Swimming Pool Maintenance Supervisor for [facility] Fwd Diagnoses GI bleeding K92.2 Advanced COPD J44.9 Chronic anticoagulation Z79.01 Chronic steroid use Osteoporosis M81.0 BPH (benign prostatic hyperplasia) N40.0
[2020-01-13] MEDS: magnesium citrate Btl 296 mL PO ×2 (18:58→21:17)
[2020-01-13] MEDS: bisacodyl 5 mg Tablet 40 MG PO (18:58)
[2020-01-13] MEDS: sodium chloride 0.9% 1,000 ML 30 ML IV (20:17)
[2020-01-13] MEDS: acetaminophen 325 mg Tablet 650 MG PO (21:16)
[2020-01-13] MEDS: SUMAtriptan 25 mg Tablet PO (23:47)
[2020-01-14] VITALS (26 sets, daily range): BP systolic 76–120; BP diastolic 39–70; PULSE 68–103; RESP 11–32; TEMP 36.6–37.1; O2SAT 93–100
[2020-01-14] MEDS: pantoprazole 40 mg SDV IVP ×2 (02:52→14:33)
[2020-01-14 05:04] LABS: Basophils % 0.4 %; Eosinophils # 0.1 10^3/uL (0.0-0.8); Eosinophils % 0.7 %; Hematocrit 32.8 % (42.0-52.0); Hemoglobin 9.8 g/dL (11.7-16.6); Lymphocytes # 1.4 10^3/uL (0.8-4.8); Mean Corpuscular HGB Conc 29.9 g/dL (30.0-36.0); Mean Corpuscular Hemoglobin 31.3 pg (28.0-34.0); Mean Corpuscular Volume 104.8 fL (80-94); Mean Platelet Volume 9.1 fL (7.4-10.4); Monocytes # 0.8 10^3/uL (0.2-0.9); Monocytes % 8.3 %; Neutrophils # 6.7 10^3/uL (1.8-7.7); Neutrophils % 69.4 %; Nucleated Red Blood Cells % 0 %; Platelet Count 192 10^3/cmm (130-400); Red Blood Count 3.13 10^6/uL (4.1-5.3); Red Cell Distribution Width 14.4 % (12.1-15.1); White Blood Count 9.6 10^3/uL (4.0-10.0)
[2020-01-14 05:30] LABS: Anion Gap 11.8 (5-19); Blood Urea Nitrogen 32 mg/dL (8-23); Calcium 9.6 mg/dL (8.5-10.5); Carbon Dioxide 34 mmol/L (22-29); Chloride 104 mmol/L (98-107); Creatinine Clr Calc Pharmacy 82.3988; Glucose 86 mg/dL (65-115); Osmolality Calculated 299 mOsm/kg (285-295); Potassium 3.8 mmol/L (3.5-5.1); Sodium 146 mmol/L (136-145)
[2020-01-14 05:38] LABS: Slide Review Slide Review Perform
[2020-01-14] MEDS: metoprolol succinate ER (24 HR) 25 mg Tablet 12.5 MG PO (08:37)
[2020-01-14] MEDS: tamsulosin 0.4 mg Capsule PO (08:37)
[2020-01-14] MEDS: calcium carb-vit d 600mg/400unit 1 Tablet 1 EACH PO (08:37)
[2020-01-14] MEDS: sertraline 50 mg Tablet 25 MG PO (08:37)
[2020-01-14] MEDS: FUROsemide 40 mg Tablet PO (08:38)
[2020-01-14] MEDS: levalbuterol 0.63 mg/3 mL Neb INHALATION ×2 (09:47→22:00)
[2020-01-14] MEDS: budesonide 0.5 mg/2 mL Neb INHALATION ×2 (09:47→22:00)
[2020-01-14] MEDS: acetaminophen 325 mg Tablet 650 MG PO (10:43)
[2020-01-14] MEDS: sodium chloride 0.9% 1,000 ML 30 ML (11:33)
--- NOTE | 2020-01-14 11:48 | PM.PN ---
Subjective Subjective: Interval history: Had more bowel movements, initially just dark, but more recent ones had some blood mixed in. Denies abdominal pain. Breathing is comfortable. Vitals/I&O/Wt Last Vital Signs Temp 97.9 F 01/14/20 11:37 Pulse 103 H 01/14/20 11:37 Resp 20 H 01/14/20 11:37 BP 107/66 01/14/20 11:37 Pulse Ox 98 01/14/20 11:37 01/13/20 01/14/20 01/14/20 22:59 06:59 14:59 Output Total 225 / 725 Balance -225 / 115 Weight last 48 hrs Weight 71.94 kg Weight 145 kg Physical Exam Const: COMMON NORMALS: no apparent distress and oriented x3 HENMT: COMMON NORMALS: oropharynx normal Neck/C-Spine: COMMON NORMALS: no JVD Chest: CHEST: Yes abnormal inspection of the chest barrel chest Resp: AUSCULTATION: diminished lung sounds Cardio: COMMON NORMALS: no JVD, regular rhythm, S1 normal heart sound, S2 normal heart sound and no murmurs RATE: tachycardic RHYTHM: regular rhythm HEART SOUNDS: S1 normal and S2 normal GI: COMMON NORMALS: normal to inspection, nondistended, normoactive bowel sounds and soft to palpation PALPATION: Yes soft and No tender Extremity: COMMON NORMALS: no joint enlargement and no pedal edema Neuro: COMMON NORMALS: oriented x3 and moves all extremities Skin: COMMON NORMALS: no rashes or lesions noted GENERAL SKIN EXAM: no rashes or lesions noted Data : 01/14/20 04:50 01/14/20 04:50 A&P Assessment and plan (1) GI bleeding: Endoscopic evaluation today. Hold anticoagulation, hold aspirin. Hemoglobin usual is around 12-13. 2 units PRBC on hold. Will follow hemoglobin level. Monitor vital signs. He has mild tachycardia, although unclear whether this may be chronic secondary to advanced COPD. Etiology is not entirely clear, appears may be upper GI bleeding with dark/maroon-colored stool, with chronic prednisone use. Continue IV PPI. Hold prednisone for now. Monitor respiratory status. Continue inhaled steroids. Vague abdominal discomfort resolved, no rigidity on palpation. Lipase normal. Status: Acute Code(s): K92.2 - Gastrointestinal hemorrhage, unspecified (2) Advanced COPD: On chronic prednisone 10 mg most recently. 5 L oxygen by nasal cannula chronically. Discussed with him and his son if endoscopy were needed he would be at somewhat elevated risk given his chronic respiratory failure. Status: Acute Code(s): J44.9 - Chronic obstructive pulmonary disease, unspecified (3) Chronic anticoagulation: With Eliquis secondary to A. fib. Hold. He understands that long-term he would benefit from continue Eliquis due to elevated risk of stroke. Currently understands it will need to be held due to GI bleeding. Understands he may be at elevated risk of endoscopic evaluation due to his chronic respiratory failure. Would be agreeable to proceed if this were necessary. Status: Acute Code(s): Z79.01 - USP (current) use of anticoagulants (4) Chronic steroid use: As above Status: Acute (5) Osteoporosis: Hold bisphosphonate for now due to GI bleed give PPI. Status: Acute Code(s): M81.0 - Age-related osteoporosis without current pathological fracture (6) BPH (benign prostatic hyperplasia): Continue Flomax. Monitor for orthostatic symptoms. Maintain orthostatic precautions. Status: Acute Code(s): N40.0 - Benign prostatic hyperplasia without lower urinary tract symptoms Attestations Medical Necessity Statement*: Continue admission for assessment and management of GI bleeding, requiring chronic anticoagulation, and with chronic oxygen dependent COPD. Coding Level of Care Code Acute Photo Finish Photographer for Kaylee Peterson Diagnoses GI bleeding K92.2 Advanced COPD J44.9 Chronic anticoagulation Z79.01 Chronic steroid use Osteoporosis M81.0 BPH (benign prostatic hyperplasia) N40.0
--- NOTE | 2020-01-14 11:58 | PC.CHAP ---
Pastoral Care Encounter/Spiritual Assessment Type of Contact [] Declined drone software development engineer visit [] Patient/Family/Request visit [] Outpatient visit [] Follow-up visit [] Physician referral [] Code/Alert [x] Routine visit [] Staff referral [] Actively dying [x] Patient sleeping [] Family support [] [] Out of room [] Palliative care [] [] Receiving care in room [] Pre-surgical visit [] Trauma [] Long length of stay [x] ICU visit [] Other: Relational/Emotional Strength [] Patient feels connected with others/family/visitors/staff [] Distress [] Loneliness/isolation [] Abandonment Spirituality of Patient [] Person of [place] [] Attends Synagogue of their [place] [] Believes in Prayer [] Reads Bible or Church materials [] There are Spiritual issues to be addressed Global Program Director Interventions [] Prayer [] Active listening [] Non-anxious presence [] Spiritual/emotional support [] Crisis/trauma care [] Spiritual counseling [] Bereavement support [] Provided bereavement packet [] Provided Bible/devotional materials [] Provided toy/stuffed animal, coloring book to patient or family member [] Provided Communion [] Anointing/[place] [] Salvation [x] Completed spiritual assessment [] Other: Impact on Illness or Injury [] Angry [] Fearful [] Anxious [] Often cries [] Exhaustion [] Unable to work [] Unable to attend methodist [] Unable to walk/stand [] Unable to read [] Unable to drive [] Unable to eat/drink [] Unable to sleep [] Unable to be with family [] Patient intubated [] Other: Summary Time spent with patient
--- NOTE | 2020-01-14 11:59 | P.ANESASSM_ITS ---
Pre-Anesthetic Assessment Pre-Anesthetic Assessment: Height/Weight: Height 1.83 m Weight 71.94 kg Temp Pulse Resp BP Pulse Ox 97.9 F 103 H 20 H 107/66 98 01/14/20 11:37 01/14/20 11:37 01/14/20 11:37 01/14/20 11:37 01/14/20 11:37 Preop Diagnosis: Gi bleed Proposed Procedure: Operation Date: 01/14/20 11:00 Proposed Procedures p EGD/COLON(Not Applicable) - Martin Christie MD s Colonoscopy(Not Applicable) - Martin Christie MD Familial anesthetic complications: none Was Beta Gretta taken within 24 hours: Yes Social: Social History: No alcohol and No tobacco (quit 40 year ago) Exam: Pre-Anes Outpt Exam: alert, oriented x 3, clear to auscultation bilaterally and regular rate & rhythm Airway: Submandibular: WNL Cervical ROM: WNL MP: 1 Dentition: False History/ROS: No significant history except as noted Pulmonary: Pulmonary: COPD and MARTINO Comments: O2 at 3-4 L all the time CV/HEM: CV/HEM: Afib and Anemia : : None reported Hepatic: Hepatic: None reported GI: GI: None reported Metabolic: Metabolic: None reported Musc/skel: Musc/skel: None reported Neuropsych: Neuropsych: Anxiety Anesthetic Plan: ASA status: 3 Anesthesia: MAC Risk of > 500 ml blood loss (7ml/kg in children): No Meds/Allergies Current Medications: Current Medications Generic Name Dose Route Start Last Admin Trade Name Freq PRN Reason Stop Dose Admin Acetaminophen 650 mg 01/12/20 21:32 01/14/20 10:43 Tylenol PO 650 mg Q4H PRN Administration MILD PAIN OR INCR EASE TEMP Budesonide 0.5 mg 01/13/20 08:00 01/14/20 09:47 Pulmicort INHALATION 0.5 mg BID.RESPIRATORY S CH Administration Calcium Carbonate 1 each 01/13/20 09:00 01/14/20 08:37 Oyster Shell 600 mg-Vit D 400unit PO 1 each DAILY DAVID Administration Furosemide 40 mg 01/13/20 08:00 01/14/20 08:38 Lasix PO 40 mg DAILY@0800 DAVID Administration Sodium Chloride 1,000 mls @ 30 ml s/hr 01/13/20 18:45 01/13/20 20:17 Sodium Chloride 0.9% IV 01/14/20 18:44 30 mls/hr .Q24H ONE Administration Levalbuterol HCl 0.63 mg 01/13/20 08:00 01/14/20 09:47 Xopenex INHALATION 0.63 mg BID.RESPIRATORY S CH Administration Metoprolol Succina te 12.5 mg 01/13/20 09:00 01/14/20 08:37 Toprol Xl PO 12.5 mg DAILY DAVID Administration Montelukast Sodium 10 mg 01/13/20 18:00 01/13/20 17:29 Singulair PO 10 mg QPM DAVID Administration Non-Formulary Medi cation 175 mcg 01/13/20 09:00 01/14/20 08:41 Revefenacin [Yup elri] INHALATION Not Given DAILY DAVID Non-Formulary Medi cation 20 mcg 01/14/20 08:00 01/14/20 07:07 Perforomist INHALATION Not Given DAILY.RESPIRATORY DAVID Pantoprazole Sodiu m 40 mg 01/13/20 02:00 01/14/20 02:52 Protonix IVP 40 mg Q12H DAVID Administration Sertraline HCl 25 mg 01/13/20 09:00 01/14/20 08:37 Zoloft PO 25 mg DAILY DAVID Administration Sumatriptan Succin ate 25 mg 01/12/20 22:04 01/13/20 23:47 Imitrex PO 25 mg PRN PRN Administration MIGRAINE HEADACHE Tamsulosin HCl 0.4 mg 01/13/20 09:00 01/14/20 08:37 Flomax PO 0.4 mg DAILY DAVID Administration Tiotropium [place] 2.5 mcg 01/14/20 08:00 01/14/20 09:52 Spiriva INHALATION Not Given DAILY.RESPIRATORY DAVID PFSH Anesthesia PFSH: Medical History (Updated 01/12/20 @ 23:51 by Lexis Mon MD, [facility] [place]) Advanced COPD Anxiety disorder Atrial fib/flutter, transient BPH (benign prostatic hyperplasia) Chronic anticoagulation Chronic steroid use Depression Hx of migraine headaches Osteoporosis Surgical History (Updated 01/13/20 @ 18:31 by Martin Christie MD) H/O pneumonectomy Status post colonoscopy Family History Other CAD (coronary artery disease) Social History Smoking and tobacco status: former smoker Quit status (tobacco): has quit using tobacco Year quit tobacco: 40 ya Alcohol intake: never Household members: other Details: Son and [id number] Marital status: Current occupational status: retired Data Anesthesia CBC & Chem 7: 01/14/20 04:50 01/14/20 04:50 Other Labs: Laboratory Results - last 48 hr 01/12/20 01/12/20 01/12/20 13:56 13:56 13:56 WBC 12.7 H RBC 3.70 L Hgb 11.3 L Hct 36.7 L MCV 99.2 H MCH 30.5 MCHC 30.8 RDW 14.3 Plt Count 197 MPV 9.1 Neut % (Auto) 79.8 Lymph % (Auto) 6.8 Wilkes % (Auto) 6.2 Eos % (Auto) 0.3 Baso % (Auto) 0.4 Neut # (Auto) 10.2 H Lymph # (Auto) 0.9 Wilkes # (Auto) 0.8 Eos # (Auto) 0.0 Baso # (Auto) 0.1 Nucleated RBC % (auto) 0 Total Counted 100 Segmented Neutrophils 69 Band Neutrophils 2.0 Lymphocytes (Manual) 13 Monocytes (Manual) 1.0 Absolute Monocytes 0.1 Metamyelocytes 3.0 Myelocytes 2.0 Nucleated RBCs # 0.0 Platelet Estimate Normal PT 15.40 H INR 1.18 Sodium 140 Potassium 4.4 Chloride 96 L Carbon Dioxide 36 H Anion Gap 12.4 BUN 29 H Creatinine 0.9 Glucose 110 Calculated Osmolality Lactate Calcium 9.6 Total Bilirubin 0.3 AST 18 ALT 13 Alkaline Phosphatase 42 NT-Pro-B Natriuret Pep 150 Total Protein 6.2 L Albumin 3.3 L Globulin 2.9 Lipase Urine Color Urine Appearance Urine pH Ur Specific [place] Urine Protein Urine Glucose (UA) Urine Ketones Urine Occult Blood Urine Nitrate Urine Bilirubin Urine Urobilinogen Ur Leukocyte Esterase Blood Type Antibody Screen Crossmatch 01/12/20 01/12/20 01/12/20 13:56 13:56 14:47 WBC RBC Hgb Hct MCV MCH MCHC RDW Plt Count MPV Neut % (Auto) Lymph % (Auto) [place] % (Auto) Eos % (Auto) Baso % (Auto) Neut # (Auto) Lymph # (Auto) [place] # (Auto) Eos # (Auto) Baso # (Auto) Nucleated RBC % (auto) Total Counted Segmented Neutrophils Band Neutrophils Lymphocytes (Manual) Monocytes (Manual) Absolute Monocytes Metamyelocytes Myelocytes Nucleated RBCs # Platelet Estimate PT INR Sodium Potassium Chloride Carbon Dioxide Anion Gap BUN Creatinine Glucose Calculated Osmolality Lactate 2.1 Calcium Total Bilirubin AST ALT Alkaline Phosphatase NT-Pro-B Natriuret Pep Total Protein Albumin Globulin Lipase Urine Color Yellow Urine Appearance Clear Urine pH 6 Ur Specific [place] 1.010 Urine Protein Neg Urine Glucose (UA) Norm Urine Ketones Negative Urine Occult Blood Neg Urine Nitrate Negative Urine Bilirubin Neg Urine Urobilinogen Norm Ur Leukocyte Esterase Negative Blood Type O Negative Antibody Screen Negative Crossmatch See Detail 01/12/20 01/12/20 01/12/20 15:44 18:00 18:00 WBC RBC Hgb 11.2 L 10.6 L Hct 37.2 L 34.7 L MCV MCH MCHC RDW Plt Count MPV Neut % (Auto) Lymph % (Auto) [place] % (Auto) Eos % (Auto) Baso % (Auto) Neut # (Auto) Lymph # (Auto) [place] # (Auto) Eos # (Auto) Baso # (Auto) Nucleated RBC % (auto) Total Counted Segmented Neutrophils Band Neutrophils Lymphocytes (Manual) Monocytes (Manual) Absolute Monocytes Metamyelocytes Myelocytes Nucleated RBCs # Platelet Estimate PT INR Sodium Potassium Chloride Carbon Dioxide Anion Gap BUN Creatinine Glucose Calculated Osmolality Lactate Calcium Total Bilirubin AST ALT Alkaline Phosphatase NT-Pro-B Natriuret Pep Total Protein Albumin Globulin Lipase 17 Urine Color Urine Appearance Urine pH Ur Specific [place] Urine Protein Urine Glucose (UA) Urine Ketones Urine Occult Blood Urine Nitrate Urine Bilirubin Urine Urobilinogen Ur Leukocyte Esterase Blood Type Antibody Screen Crossmatch 01/12/20 01/13/20 01/13/20 23:32 04:00 04:00 WBC 10.4 H RBC 2.94 L Hgb 9.5 L 9.3 L Hct 31.1 L 30.5 L MCV 103.7 H MCH 31.6 MCHC 30.5 RDW 14.4 Plt Count 168 MPV 9.7 Neut % (Auto) 82.1 Lymph % (Auto) 4.8 Wilkes % (Auto) 6.3 Eos % (Auto) 0.0 Baso % (Auto) 0.3 Neut # (Auto) 8.5 H Lymph # (Auto) 0.5 L [place] # (Auto) 0.7 Eos # (Auto) 0.0 Baso # (Auto) 0.0 Nucleated RBC % (auto) 0 Total Counted Segmented Neutrophils Band Neutrophils Lymphocytes (Manual) Monocytes (Manual) Absolute Monocytes Metamyelocytes Myelocytes Nucleated RBCs # 0.0 Platelet Estimate PT INR Sodium 140 Potassium 4.5 Chloride 100 Carbon Dioxide 32 H Anion Gap 12.5 BUN 28 H Creatinine 0.8 Glucose 121 H Calculated Osmolality 288 Lactate Calcium 8.9 Total Bilirubin AST ALT Alkaline Phosphatase NT-Pro-B Natriuret Pep Total Protein Albumin Globulin Lipase Urine Color Urine Appearance Urine pH Ur Specific [place] Urine Protein Urine Glucose (UA) Urine Ketones Urine Occult Blood Urine Nitrate Urine Bilirubin Urine Urobilinogen Ur Leukocyte Esterase Blood Type Antibody Screen Crossmatch 01/13/20 01/13/20 01/14/20 13:08 20:02 04:50 WBC 9.6 RBC 3.13 L Hgb 8.7 L 9.0 L 9.8 L Hct 28.7 L 32.8 L MCV 104.8 H MCH 31.3 MCHC 29.9 L RDW 14.4 Plt Count 192 MPV 9.1 Neut % (Auto) 69.4 Lymph % (Auto) 15.0 Wilkes % (Auto) 8.3 Eos % (Auto) 0.7 Baso % (Auto) 0.4 Neut # (Auto) 6.7 Lymph # (Auto) 1.4 Wilkes # (Auto) 0.8 Eos # (Auto) 0.1 Baso # (Auto) 0.0 Nucleated RBC % (auto) 0 Total Counted Segmented Neutrophils Band Neutrophils Lymphocytes (Manual) Monocytes (Manual) Absolute Monocytes Metamyelocytes Myelocytes Nucleated RBCs # 0.0 Platelet Estimate PT INR Sodium Potassium Chloride Carbon Dioxide Anion Gap BUN Creatinine Glucose Calculated Osmolality Lactate Calcium Total Bilirubin AST ALT Alkaline Phosphatase NT-Pro-B Natriuret Pep Total Protein Albumin Globulin Lipase Urine Color Urine Appearance Urine pH Ur Specific [place] Urine Protein Urine Glucose (UA) Urine Ketones Urine Occult Blood Urine Nitrate Urine Bilirubin Urine Urobilinogen Ur Leukocyte Esterase Blood Type Antibody Screen Crossmatch 01/14/20 04:50 WBC RBC Hgb Hct MCV MCH MCHC RDW Plt Count MPV Neut % (Auto) Lymph % (Auto) [place] % (Auto) Eos % (Auto) Baso % (Auto) Neut # (Auto) Lymph # (Auto) [place] # (Auto) Eos # (Auto) Baso # (Auto) Nucleated RBC % (auto) Total Counted Segmented Neutrophils Band Neutrophils Lymphocytes (Manual) Monocytes (Manual) Absolute Monocytes Metamyelocytes Myelocytes Nucleated RBCs # Platelet Estimate PT INR Sodium 146 H Potassium 3.8 Chloride 104 Carbon Dioxide 34 H Anion Gap 11.8 BUN 32 H Creatinine 0.8 Glucose 86 Calculated Osmolality 299 H Lactate Calcium 9.6 Total Bilirubin AST ALT Alkaline Phosphatase NT-Pro-B Natriuret Pep Total Protein Albumin Globulin Lipase Urine Color Urine Appearance Urine pH Ur Specific [place] Urine Protein Urine Glucose (UA) Urine Ketones Urine Occult Blood Urine Nitrate Urine Bilirubin Urine Urobilinogen Ur Leukocyte Esterase Blood Type Antibody Screen Crossmatch Cardiac Studies: No Data to Display
--- NOTE | 2020-01-14 13:13 | P.CONIM_ITS ---
Providers/Reason For Consult Consulting Physican/Specialty*: Rommel Rand Reason for Consult*: Hematochezia Attending Physician: Rommel Rand Primary Care Provider: Leatha Alvarez MD History of Present Illness History of Present Illness Mauricio Bah SR is a 79 year old male who presented to the ER 2 days ago with 1 day history of fresh blood per rectum. Patient is on Eliquis for atrial fibrillation and has multiple comorbidities including COPD. He denies any history of constipation, abdominal pain nausea vomiting. No history of peptic ulcer disease. Patient denies any history of upper endoscopy though he thinks he has had a colonoscopy in the past. Review of Systems General: Reports: 10 or more systems reviewed and unremarkable except in HPI and below Meds/Allergies Home Medications and Allergies Home Medications Medication Instructions Recorded Confirmed Type Slow Fe 1 tab PO DAILY 01/12/20 01/12/20 History alendronate 70 mg PO Q7D 01/12/20 01/12/20 History apixaban [Eliquis] 5 mg PO BID 01/12/20 01/12/20 History aspirin [Aspirin Low Dose] 81 mg PO DAILY 01/12/20 01/12/20 History budesonide 0.5 mg INHALATION BID 01/12/20 01/12/20 History calcium carbonate [Calcium 600] 600 mg PO DAILY 01/12/20 01/12/20 History cholecalciferol (vitamin D3) 2,000 unit PO BID 01/12/20 01/12/20 History [Vitamin D3] fluticasone propionate 1 spray INTRANASAL BID 01/12/20 01/12/20 History formoterol fumarate [Perforomist] 2 ml INHALATION BID 01/12/20 01/12/20 History furosemide 40 mg PO DAILY 01/12/20 01/12/20 History hydroxyzine HCl 10 mg PO QID PRN 01/12/20 01/12/20 History levalbuterol HCl See Rx Instructions .ROUTE .COMPLEX 01/12/20 01/12/20 History loratadine 10 mg PO DAILY 01/12/20 01/12/20 History metoprolol succinate 12.5 mg PO DAILY 01/12/20 01/12/20 History montelukast 10 mg PO BEDTIME 01/12/20 01/12/20 History omeprazole 20 mg PO DAILY 01/12/20 01/12/20 History potassium chloride 10 meq PO DAILY 01/12/20 01/12/20 History prednisone 10 mg PO DAILY 01/12/20 01/12/20 History sertraline 25 mg PO DAILY 01/12/20 01/12/20 History sumatriptan succinate [Imitrex] 0 mg PO .COMPLEX 01/12/20 01/12/20 History tamsulosin 0.4 mg PO DAILY 01/12/20 01/12/20 History tiotropium bromide [Spiriva 2 puff INHALATION DAILY 01/12/20 01/12/20 History Respimat] Allergies Allergy/AdvReac Type Severity Reaction Status Date / Time albuterol AdvReac Intermediate Tachycardia Verified 01/12/20 17:09 Penicillins AdvReac Intermediate Tachycardia Verified 01/12/20 17:02 Current Medications Current Medications Generic Name Dose Route Start Last Admin Trade Name Freq PRN Reason Stop Dose Admin Acetaminophen 650 mg 01/12/20 21:32 01/14/20 10:43 Tylenol PO 650 mg Q4H PRN Administration MILD PAIN OR INCREASE TEMP Budesonide 0.5 mg 01/13/20 08:00 01/14/20 09:47 Pulmicort INHALATION 0.5 mg BID.RESPIRATORY DAVID Administration Calcium Carbonate 1 each 01/13/20 09:00 01/14/20 08:37 Oyster Shell 600mg-Vit D 400unit PO 1 each DAILY DAVID Administration Furosemide 40 mg 01/13/20 08:00 01/14/20 08:38 Lasix PO 40 mg DAILY@0800 DAVID Administration Sodium Chloride 1,000 mls @ 30 mls/hr 01/13/20 18:45 01/13/20 20:17 Sodium Chloride 0.9% IV 01/14/20 18:44 30 mls/hr .Q24H ONE Administration Levalbuterol HCl 0.63 mg 01/13/20 08:00 01/14/20 09:47 Xopenex INHALATION 0.63 mg BID.RESPIRATORY DAVID Administration Metoprolol Succinate 12.5 mg 01/13/20 09:00 01/14/20 08:37 Toprol Xl PO 12.5 mg DAILY DAVID Administration Montelukast Sodium 10 mg 01/13/20 18:00 01/13/20 17:29 Singulair PO 10 mg QPM DAVID Administration Non-Formulary Medication 175 mcg 01/13/20 09:00 01/14/20 08:41 Revefenacin [Yupelri] INHALATION Not Given DAILY DAVID Non-Formulary Medication 20 mcg 01/14/20 08:00 01/14/20 07:07 Perforomist INHALATION Not Given DAILY.RESPIRATORY DAVID Pantoprazole Sodium 40 mg 01/13/20 02:00 01/14/20 02:52 Protonix IVP 40 mg Q12H DAVID Administration Sertraline HCl 25 mg 01/13/20 09:00 01/14/20 08:37 Zoloft PO 25 mg DAILY DAVID Administration Sumatriptan Succinate 25 mg 01/12/20 22:04 01/13/20 23:47 Imitrex PO 25 mg PRN PRN Administration MIGRAINE HEADACHE Tamsulosin HCl 0.4 mg 01/13/20 09:00 01/14/20 08:37 Flomax PO 0.4 mg DAILY DAVID Administration Tiotropium [place] 2.5 mcg 01/14/20 08:00 01/14/20 09:52 Spiriva INHALATION Not Given DAILY.RESPIRATORY DAVID PFSH Acute PFSH: Medical History Advanced COPD Anxiety disorder Atrial fib/flutter, transient BPH (benign prostatic hyperplasia) Chronic anticoagulation Chronic steroid use Depression Hx of migraine headaches Osteoporosis Surgical History H/O pneumonectomy Status post colonoscopy Family History Other CAD (coronary artery disease) Social History Smoking and tobacco status: former smoker Quit status (tobacco): has quit using tobacco Year quit tobacco: 40 ya Alcohol intake: never Household members: other Details: Son and [id number] Marital status: Current occupational status: retired Vitals/I&O/Wt Last Vital Signs Temp 97.9 F 01/14/20 11:37 Pulse 103 H 01/14/20 11:37 Resp 20 H 01/14/20 11:37 BP 107/66 01/14/20 11:37 Pulse Ox 98 01/14/20 11:37 01/13/20 01/14/20 01/14/20 22:59 06:59 14:59 Output Total 225 / 725 Balance -225 / 115 Weight last 48 hrs Weight 158 lb 9.6 oz Weight 319 lb 10.724 oz Physical Exam Narrative: EXAM NARRATIVE: HEENT: Normocephalic Eye: Sclera /conjunctiva normal Respiratory and chest: Bilateral clear breath sounds on auscultation Cardiovascular: Normal S1 and S2 heart sounds Abdomen: Soft to palpation, small umbilical hernia Neurological: Oriented to place person and time Skin: Intact, no lesions appreciated on gross exam A&P Assessment and plan (1) Lower gastrointestinal hemorrhage: Serial hemoglobin checks Continue Protonix Hold Eliquis Plan for EGD/colonoscopy under MAC Procedure, risks, benefits and alternatives have been discussed with the patient who wishes to proceed with surgery. Status: Acute Code(s): K92.2 - Gastrointestinal hemorrhage, unspecified Coding Level of Care Code Acute Surveillance System Monitor for [facility] Diagnoses Lower gastrointestinal hemorrhage K92.2
--- NOTE | 2020-01-14 13:20 | ANE.PACU2 ---
 Inpatient post-anesthesia follow up: Airway intact: Yes Vital signs: Temperature 97.9 F Pulse Rate [Right] 107 Pulse Rate 103 Respiratory Rate 20 Blood Pressure [Ri ght Arm] 113/88 Blood Pressure 107/66 Pulse Oximetry 98 Oxygen Delivery Me thod Nasal Cannula Oxygen Flow Rate 3 Fraction of Inspir ed Oxygen Hydration adequate: Yes Nausea and vomiting: No Pain level: 1
[2020-01-14] MEDS: montelukast sodium 10 mg Tablet PO (17:41)
[2020-01-14] MEDS: apixaban 5 mg Tablet PO (17:42)
[2020-01-15] VITALS (24 sets, daily range): BP systolic 79–119; BP diastolic 40–77; PULSE 79–102; RESP 15–33; TEMP 36.6–36.9; O2SAT 94–100
--- NOTE | 2020-01-15 03:05 | PC.NURSE ---
Called to patients room. Noted to have slight nose bleed. Humidification added to Oxygen. Patient noted have increased work of breathing.When patient asked if he felt more short of breath he states yes . Upon auscultation noted to be very diminished bilat. Notified RT, no noted orders for prn breathing treatments. Notified Dr. Gracia, order given for prn duoneb breathing treatments.
[2020-01-15] MEDS: pantoprazole 40 mg SDV IVP ×2 (03:12→15:33)
[2020-01-15 05:47] LABS: Basophils % 0.5 %; Eosinophils % 0.1 %; Hematocrit 26.2 % (42.0-52.0); Lymphocytes # 0.8 10^3/uL (0.8-4.8); Lymphocytes % 10.4 %; Mean Corpuscular HGB Conc 30.5 g/dL (30.0-36.0); Mean Corpuscular Hemoglobin 30.5 pg (28.0-34.0); Mean Platelet Volume 9.6 fL (7.4-10.4); Monocytes # 0.9 10^3/uL (0.2-0.9); Neutrophils # 5.4 10^3/uL (1.8-7.7); Neutrophils % 71.4 %; Nucleated Red Blood Cells % 0 %; Platelet Count 182 10^3/cmm (130-400); Positive C 1; Positive M 1; Red Blood Count 2.62 10^6/uL (4.1-5.3); Red Cell Distribution Width 14.4 % (12.1-15.1); White Blood Count 7.5 10^3/uL (4.0-10.0)
[2020-01-15 06:06] LABS: Anion Gap 11.3 (5-19); Blood Urea Nitrogen 26 mg/dL (8-23); Carbon Dioxide 34 mmol/L (22-29); Chloride 101 mmol/L (98-107); Glucose 130 mg/dL (65-115); Osmolality Calculated 295 mOsm/kg (285-295); Potassium 3.3 mmol/L (3.5-5.1); Sodium 143 mmol/L (136-145)
[2020-01-15 06:59] LABS: Slide Review Slide Review Perform
[2020-01-15] MEDS: tamsulosin 0.4 mg Capsule PO (07:54)
[2020-01-15] MEDS: apixaban 5 mg Tablet PO ×2 (07:54→17:10)
[2020-01-15] MEDS: metoprolol succinate ER (24 HR) 25 mg Tablet 12.5 MG PO (07:54)
[2020-01-15] MEDS: FUROsemide 40 mg Tablet PO (07:55)
[2020-01-15] MEDS: sertraline 50 mg Tablet 25 MG PO (07:55)
[2020-01-15] MEDS: calcium carb-vit d 600mg/400unit 1 Tablet 1 EACH PO (07:55)
[2020-01-15] MEDS: budesonide 0.5 mg/2 mL Neb INHALATION (08:09)
[2020-01-15] MEDS: levalbuterol 0.63 mg/3 mL Neb INHALATION ×3 (08:09→19:49)
--- NOTE | 2020-01-15 10:26 | PC.SOCIAL ---
Pg 2 IMM Explained to pt Pg 2 IMM. Pt verbally understands & signed. No questions voiced. Provided a copy to pt & left on pt's bedside table. Signed, dated, & timed, then placed in chart.
--- NOTE | 2020-01-15 10:32 | ANE.PACU2 ---
 Inpatient post-anesthesia follow up: Vital signs: Temperature 98.2 F Pulse Rate [Right] 107 Pulse Rate 96 Respiratory Rate 22 Blood Pressure [Ri ght Arm] 113/88 Blood Pressure 96/52 Pulse Oximetry 98 Oxygen Delivery Me thod Nasal Cannula Oxygen Flow Rate 4 Fraction of Inspir ed Oxygen Nausea and vomiting: No Pain level: 1 Mental status: Baseline
[2020-01-15] MEDS: sodium chloride 0.9% 500 ML 999 ML IV (15:33)
[2020-01-15 16:14] LABS: Hemoglobin 8.8 g/dL (11.7-16.6)
[2020-01-15] MEDS: SUMAtriptan 25 mg Tablet PO (17:10)
[2020-01-15] MEDS: montelukast sodium 10 mg Tablet PO (17:10)
--- NOTE | 2020-01-15 17:21 | P.PN_ITS ---
Subjective Subjective: Interval history: Today morning he is doing well. Denies abdominal pain. Is wondering when he might be able to leave the hospital. Vitals/I&O/Wt Last Vital Signs Temp 98.2 F 01/15/20 08:00 Pulse 95 01/15/20 15:00 Resp 33 H 01/15/20 15:00 BP 87/44 01/15/20 15:00 Pulse Ox 94 01/15/20 15:00 01/15/20 01/15/20 01/15/20 06:59 14:59 22:59 Intake Total 600 / 800 600 / 600 151 / 751 Output Total 300 / 1150 1050 / 1050 350 / 1400 Balance 300 / -350 -450 / -450 -199 / -649 Weight last 48 hrs Weight 68.855 kg Physical Exam Const: COMMON NORMALS: no apparent distress and oriented x3 HENMT: COMMON NORMALS: oropharynx normal Neck/C-Spine: COMMON NORMALS: no JVD Chest: CHEST: Yes abnormal inspection of the chest barrel chest Resp: AUSCULTATION: diminished lung sounds Cardio: COMMON NORMALS: no JVD, regular rhythm, S1 normal heart sound, S2 normal heart sound and no murmurs RATE: tachycardic RHYTHM: regular rhythm HEART SOUNDS: S1 normal and S2 normal GI: COMMON NORMALS: normal to inspection, nondistended, normoactive bowel sounds and soft to palpation PALPATION: Yes soft and No tender Extremity: COMMON NORMALS: no joint enlargement and no pedal edema Neuro: COMMON NORMALS: oriented x3 and moves all extremities Skin: COMMON NORMALS: no rashes or lesions noted GENERAL SKIN EXAM: no rash es or lesions noted Data : 01/15/20 15:34 01/15/20 04:50 A&P Assessment and plan (1) GI bleeding: Endoscopic evaluation with finding of gastritis, no active bleeding. Diverticulosis, hemorrhoids reported in colonoscopy. No active bleeding. Per discussion with surgery, the thought is perhaps he may have had some bleeding from gastritis, or otherwise may have been a resolved diverticular bleed. He is on twice daily IV PPI currently. At home on 20 mg once daily omeprazole. Discussed with family increasing the dose to 40 mg twice a day. He was restarted on anticoagulation last night to monitor for any further bleeding as he and family wish to pursue stroke protection for atrial fibrillation. He is usually on 10 mg prednisone chronically. Discussed with him and family regarding contributing to gastritis and increasing risk of bleeding. They understand that in case of recurrent bleeding risk may be too high to be able to continue anticoagulation, in that case exposing him to risk of stroke which then may be unavoidable. Patient and family understand that in case of recurrent bleeding he may need additional evaluation with deep enteroscopy or capsule endoscopy in order to be able to continue anticoagulation. So far his blood counts are stable. We do need to restart his prednisone as his blood pressure is soft today with likely underlying adrenal insufficiency with chronic steroid use, as well as due to his severe COPD. We will hold additional Lasix for now. He received a 500 mill bolus of normal saline. Hold aspirin. Hemoglobin usual is around 12-13. 2 units PRBC on hold. Will follow hemoglobin level. Monitor vital signs. Continue IV PPI. Stop inhaled steroids. Vague abdominal discomfort resolved, no rigidity on palpation. Lipase normal. Status: Acute Code(s): K92.2 - Gastrointestinal hemorrhage, unspecified (2) Advanced COPD: On chronic prednisone 10 mg most recently. 5 L oxygen by nasal cannula chronically. Status: Acute Code(s): J44.9 - Chronic obstructive pulmonary disease, unspecified (3) Chronic anticoagulation: With Eliquis secondary to A. fib. Metoprolol. Status: Acute Code(s): Z79.01 - nursing home (current) use of anticoagulants (4) Chronic steroid use: As above Status: Acute (5) Osteoporosis: Hold bisphosphonate for now due to GI bleed give PPI. Status: Acute Code(s): M81.0 - Age-related osteoporosis without current pathological fracture (6) BPH (benign prostatic hyperplasia): Continue Flomax. Monitor for orthostatic symptoms. Maintain orthostatic precautions. Status: Acute Code(s): N40.0 - Benign prostatic hyperplasia without lower urinary tract symptoms Attestations Medical Necessity Statement*: Continue admission for cyst management following GI bleed, resumption of anticoagulation, currently soft blood pressures, need to resume steroid due to suspected adrenal insufficiency component in the setting of gastritis. Coding Level of Care Code Acute Pathology Laboratory Technologist for [facility] F[facility] Diagnoses GI bleeding K92.2 Advanced COPD J44.9 Chronic anticoagulation Z79.01 Chronic steroid use Osteoporosis M81.0 BPH (benign prostatic hyperplasia) N40.0
[2020-01-15] MEDS: predniSONE 10 mg Tablet PO (19:08)
[2020-01-15] MEDS: sucralfate 1 gm/10 mL Oral Liq UDC PO (20:21)
--- NOTE | 2020-01-15 23:06 | PC.NURSE ---
Continued Hypotension After admin of prednisone. Pt is asymptomatic at this time. Automatic BP 79/40, manual BP 76/30. HR is 101 sinus rhythm. Remains free of melena stools at this time.
[2020-01-15] MEDS: sodium chloride 0.9% 500 ML IV (23:11)
--- NOTE | 2020-01-15 23:48 | PC.NURSE ---
Called into room for new complaints of lower abdominal pain. Reports it feels like pressure, like he needs to go but can't . Rates pain 05/05. 500ml bolus infusing per BP.
[2020-01-16] VITALS (49 sets, daily range): BP systolic 71–139; BP diastolic 36–87; PULSE 77–118; RESP 15–31; TEMP 36.6–36.8; O2SAT 94–100
[2020-01-16] MEDS: pantoprazole 40 mg SDV IVP ×2 (04:15→16:05)
[2020-01-16 04:53] LABS: Basophils % 0.3 %; Hematocrit 25.7 % (42.0-52.0); Hemoglobin 7.9 g/dL (11.7-16.6); Lymphocytes # 0.5 10^3/uL (0.8-4.8); Lymphocytes % 6.9 %; Mean Corpuscular HGB Conc 30.7 g/dL (30.0-36.0); Mean Corpuscular Hemoglobin 30.3 pg (28.0-34.0); Mean Corpuscular Volume 98.5 fL (80-94); Mean Platelet Volume 9.5 fL (7.4-10.4); Monocytes # 0.6 10^3/uL (0.2-0.9); Monocytes % 7.7 %; Neutrophils # 5.8 10^3/uL (1.8-7.7); Neutrophils % 79.5 %; Nucleated Red Blood Cells % 0 %; Platelet Count 177 10^3/cmm (130-400); Red Blood Count 2.61 10^6/uL (4.1-5.3); Red Cell Distribution Width 14.1 % (12.1-15.1); White Blood Count 7.3 10^3/uL (4.0-10.0)
[2020-01-16 05:14] LABS: Anion Gap 8.7 (5-19); Blood Urea Nitrogen 15 mg/dL (8-23); Calcium 8.9 mg/dL (8.5-10.5); Carbon Dioxide 35 mmol/L (22-29); Chloride 99 mmol/L (98-107); Glucose 134 mg/dL (65-115); Osmolality Calculated 286 mOsm/kg (285-295); Potassium 3.7 mmol/L (3.5-5.1); Sodium 139 mmol/L (136-145)
[2020-01-16 05:48] LABS: Slide Review Slide Review Perform
--- NOTE | 2020-01-16 05:58 | PC.NURSE ---
Continued Lower BP's this AM with Maps lower than 65. Pt is asymptomatic. Notified Dr. Gracia by phone, AM labs reviewed over phone. Gave orders to start low dose levophed at 2mcg.
[2020-01-16] MEDS: sucralfate 1 gm/10 mL Oral Liq UDC PO ×3 (06:08→20:43)
[2020-01-16] MEDS: levalbuterol 0.63 mg/3 mL Neb INHALATION ×5 (08:23→23:40)
[2020-01-16] MEDS: calcium carb-vit d 600mg/400unit 1 Tablet 1 EACH PO (08:39)
[2020-01-16] MEDS: predniSONE 10 mg Tablet PO (08:39)
[2020-01-16] MEDS: tamsulosin 0.4 mg Capsule PO (08:39)
[2020-01-16] MEDS: apixaban 5 mg Tablet PO ×2 (08:40→18:09)
--- NOTE | 2020-01-16 10:18 | PC.CHAP ---
Pastoral Care Encounter/Spiritual Assessment Type of Contact [] Declined lard tub washer visit [] Patient/Family/Request visit [] Outpatient visit [] Follow-up visit [] Physician referral [] Code/Alert [x] Routine visit [] Staff referral [] Actively dying [x] Patient sleeping [] Family support [] [] Out of room [] Palliative care [] [] Receiving care in room [] Pre-surgical visit [] Trauma [] Long length of stay [x] ICU visit [] Other: Relational/Emotional Strength [] Patient feels connected with others/family/visitors/staff [] Distress [] Loneliness/isolation [] Abandonment Spirituality of Patient [] Person of Maria Luz [] Attends Restorationist of their Maria Luz [] Believes in Prayer [] Reads Bible or Restorationism materials [] There are Spiritual issues to be addressed Test Lead Interventions [] Prayer [] Active listening [] Non-anxious presence [] Spiritual/emotional support [] Crisis/trauma care [] Spiritual counseling [] Bereavement support [] Provided bereavement packet [] Provided Bible/devotional materials [] Provided toy/stuffed animal, coloring book to patient or family member [] Provided Communion [] Anointing/[place] [] Salvation [x] Completed spiritual assessment [] Other: Impact on Illness or Injury [] Angry [] Fearful [] Anxious [] Often cries [] Exhaustion [] Unable to work [] Unable to attend adventist [] Unable to walk/stand [] Unable to read [] Unable to drive [] Unable to eat/drink [] Unable to sleep [] Unable to be with family [] Patient intubated [] Other: Summary Time spent with patient
--- NOTE | 2020-01-16 14:17 | XR_ITS ---
WS: [id number] XR chest 1V portable [id number] REASON FOR EXAM: hypoxia FINDINGS: There is again noted lack of the vasculature in the upper right chest consistent with a pne umatocele and on today's exam there appears to be progression of airspace dilatation on the right. Wi th this progression of changes consideration of CT to evaluate the chest to rule out other expanding possibilities. There is previous sternotomy changes noted The heart is small in size. Large bullae are seen in the upper left lung. 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 Due to the progression of changes identified on the right consideration of a CT of the chest.
--- NOTE | 2020-01-16 14:30 | PC.NURSE ---
Blood pressure: It appears pt is hypotensive on the monitor. B/P cuff on left arm and he les on his right side. But when B/P cuff place on right arm, SBP 105-115.
[2020-01-16] MEDS: predniSONE 5 mg Tablet PO (14:35)
--- NOTE | 2020-01-16 14:38 | P.PN_ITS ---
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 This morning his breathing states feels about the same. Denies abdominal pain. Has not had a bowel movement since colonoscopy. Vitals/I&O/Wt Last Vital Signs Temp 98.2 F 01/16/20 08:05 Pulse 89 01/16/20 13:45 Resp 30 H 01/16/20 13:45 BP 85/39 01/16/20 13:45 Pulse Ox 100 01/16/20 13:45 01/15/20 01/16/20 01/16/20 22:59 06:59 14:59 Intake Total 771 / 1371 500 / 1871 718.873 / 718.873 Output Total 500 / 1550 350 / 1900 Balance 271 / -179 150 / -29 718.873 / 718.873 Weight last 48 hrs Weight 68.855 kg Physical Exam Const: COMMON NORMALS: no apparent distress and oriented x3 HENMT: COMMON NORMALS: oropharynx normal Neck/C-Spine: COMMON NORMALS: no JVD Chest: CHEST: Yes abnormal inspection of the chest barrel chest Resp: AUSCULTATION: diminished lung sounds Cardio: COMMON NORMALS: no JVD, regular rhythm, S1 normal heart sound, S2 norm al heart sound and no murmurs RATE: tachycardic RHYTHM: regular rhythm HEART SOUNDS: S1 normal and S2 normal GI: COMMON NORMALS: normal to inspection, nondistended, normoactive bowel sounds and soft to palpation PALPATION: Yes soft and No tender Extremity: COMMON NORMALS: no joint enlargement OTHER: Nonpitting and trace pitting edema. Neuro: COMMON NORMALS: oriented x3 and moves all extremities Skin: COMMON NORMALS: no rashes or lesions noted GENERAL SKIN EXAM: no rashes or lesions noted Data : 01/16/20 03:55 01/16/20 03:55 A&P Assessment and plan (1) Hypotension: Blood pressure still soft despite IV fluid boluses. Hold off additional fluids for now. His Lasix have been on hold since yesterday. Started on levo fed this morning. On 1 mcg, however, difficult to wean his blood pressure appears to be fluctuating. He was restarted on prednisone last night due to concern for adrenal insufficiency being the cause. We will give extra dose 5 mg prednisone. Check chest x-ray. Metoprolol has been held. Continue attempts to wean off levo fed. If still dif [place] may have to hold his Flomax. Status: Acute Code(s): I95.9 - Hypotension, unspecified (2) GI bleeding: Endoscopic evaluation with finding of gastritis, no active bleeding. Diverticulosis, hemorrhoids reported in colonoscopy. No active bleeding. Per discussion with surgery, the thought is perhaps he may have had some bleeding from gastritis, or otherwise may have been a resolved diverticular bleed. He is on twice daily IV PPI currently. At home on 20 mg once daily omeprazole. Discussed increasing the dose to 40 mg twice a day. He was restarted on anticoagulation last night to monitor for any further bleeding as he and family wish to pursue stroke protection for atrial fibrillation. He is usually on 10 mg prednisone chronically. Restarted prednisone due to concern for adrenal insufficiency and severe COPD. Patient and family understand that in case of recurrent bleeding he may need additional evaluation with deep enteroscopy or capsule endoscopy in order to be able to continue anticoagulation. So far his blood counts are stable. Hold aspirin. Hemoglobin usual is around 12-13. 2 units PRBC on hold. Will follow hemoglobin level. Monitor vital signs. Continue IV PPI. Vague abdominal discomfort resolved, no rigidity on palpation. Lipase normal. Status: Acute Code(s): K92.2 - Gastrointestinal hemorrhage, unspecified (3) Advanced COPD: On chronic prednisone 10 mg most recently. 5 L oxygen by nasal cannula chronically. Status: Acute Code(s): J44.9 - Chronic obstructive pulmonary disease, unspecified (4) Chronic anticoagulation: With Eliquis secondary to A. fib. Metoprolol. Status: Acute Code(s): Z79.01 - [employer] (current) use of anticoagulants (5) Chronic steroid use: As above Status: Acute (6) Osteoporosis: Hold bisphosphonate for now due to GI bleed give PPI. Status: Acute Code(s): M81.0 - Age-related osteoporosis without current pathological fracture (7) BPH (benign prostatic hyperplasia): Continue Flomax. Monitor for orthostatic symptoms. Maintain orthostatic precautions. Status: Acute Code(s): N40.0 - Benign prostatic hyperplasia without lower urinary tract symptoms Attestations Medical Necessity Statement*: Continue admission for assessment of management of hypotension, suspected adrenal insufficiency in the setting of recent GI bleed, gastritis, on chronic anticoagulation, with severe COPD and chronic oxygen dependence. Coding Level of Care Code Acute Fiberglass Fabricator for g Fwd Diagnoses Hypotension I95.9 GI bleeding K92.2 Advanced COPD J44.9 Chronic anticoagulation Z79.01 Chronic steroid use Osteoporosis M81.0 BPH (benign prostatic hyperplasia) N40.0
--- NOTE | 2020-01-16 15:23 | PC.NURSE ---
Pt prefers to lie on his right side. He has a pressure ulcer on his right hip or elbow. Discussed with him the advantages of moving around in the bed , not lying on the same side all the time.
[2020-01-16] MEDS: montelukast sodium 10 mg Tablet PO (18:09)
--- NOTE | 2020-01-16 19:00 | PC.NURSE ---
Pt has finished dinner and lied back down in the bed. Heart rate now in 90's, sinus rhythm with fewer PACs noted. Digoxin , not indicated at this time. Report given to REMI Calloway.
[2020-01-17] VITALS (16 sets, daily range): BP systolic 100–144; BP diastolic 47–87; PULSE 77–99; RESP 16–28; TEMP 36.3–36.9; O2SAT 91–100
--- NOTE | 2020-01-17 01:42 | PC.NURSE ---
Education provided to patient about importance of repositioning. Pt non-compliant with repositioning and continues to lay on right side with pressure ulcers to right elbow and right hip. Reports when he lays on his left side he can not breath Pt declines to lay supine with head of bed elevated.
--- NOTE | 2020-01-17 02:17 | PC.NURSE ---
Pt unable to sleep and reports he is exhausted . Also reports legs are restless and feels like the moore are closing in . Dr. Gracia contacted by phone and received verbal orders for Xanax 0.25mg po X 1.
[2020-01-17] MEDS: ALPRAZolam 0.25 mg Tablet PO (02:26)
[2020-01-17 04:17] LABS: Basophils % 0.3 %; Eosinophils # 0.1 10^3/uL (0.0-0.8); Hematocrit 24.5 % (42.0-52.0); Hemoglobin 7.4 g/dL (11.7-16.6); Lymphocytes # 0.8 10^3/uL (0.8-4.8); Lymphocytes % 9.9 %; Mean Corpuscular HGB Conc 30.2 g/dL (30.0-36.0); Mean Corpuscular Hemoglobin 30.3 pg (28.0-34.0); Mean Corpuscular Volume 100.4 fL (80-94); Mean Platelet Volume 9.6 fL (7.4-10.4); Monocytes # 0.8 10^3/uL (0.2-0.9); Monocytes % 10.1 %; Neutrophils # 5.7 10^3/uL (1.8-7.7); Neutrophils % 73.4 %; Nucleated Red Blood Cells % 0 %; Platelet Count 185 10^3/cmm (130-400); Red Blood Count 2.44 10^6/uL (4.1-5.3); Red Cell Distribution Width 14.5 % (12.1-15.1); White Blood Count 7.8 10^3/uL (4.0-10.0)
[2020-01-17 04:32] LABS: Anion Gap 9.8 (5-19); Blood Urea Nitrogen 17 mg/dL (8-23); Calcium 9.4 mg/dL (8.5-10.5); Carbon Dioxide 35 mmol/L (22-29); Chloride 101 mmol/L (98-107); Glucose 109 mg/dL (65-115); Osmolality Calculated 291 mOsm/kg (285-295); Potassium 3.8 mmol/L (3.5-5.1); Sodium 142 mmol/L (136-145)
[2020-01-17 04:58] LABS: Slide Review Slide Review Perform
[2020-01-17] MEDS: pantoprazole 40 mg SDV IVP ×2 (04:58→16:34)
[2020-01-17] MEDS: sucralfate 1 gm/10 mL Oral Liq UDC PO ×4 (06:55→20:48)
[2020-01-17] MEDS: levalbuterol 0.63 mg/3 mL Neb INHALATION ×4 (07:38→19:57)
[2020-01-17] MEDS: metoprolol succinate ER (24 HR) 25 mg Tablet 12.5 MG PO (08:46)
[2020-01-17] MEDS: calcium carb-vit d 600mg/400unit 1 Tablet 1 EACH PO (08:46)
[2020-01-17] MEDS: tamsulosin 0.4 mg Capsule PO (08:47)
[2020-01-17] MEDS: apixaban 5 mg Tablet PO ×2 (08:47→17:51)
[2020-01-17] MEDS: predniSONE 10 mg Tablet PO (08:47)
--- NOTE | 2020-01-17 09:09 | PC.SOCIAL ---
IMM Update Pg 2 of IMM Updated, copy provided to patient.
--- NOTE | 2020-01-17 14:51 | PC.NURSE ---
Report faxed to [facility]. Further verbal report given to REMI Weston. NO further questions.
--- NOTE | 2020-01-17 15:35 | PC.NURSE ---
Pt transferred to [address] [place] [address] with all his belongings. Chart and medications at nurse's station. Pt settled into room. Oriented to call light, light button, and TV.
--- NOTE | 2020-01-17 17:18 | P.PN_ITS ---
Subjective Subjective: Interval history: This morning he denies any changes. Breathing feels the same as usual. No abdominal pain. No bowel movement. He is concerned that he may be constipated. Vitals/I&O/Wt Last Vital Signs Temp 97.8 F 01/17/20 14:00 Pulse 93 01/17/20 14:50 Resp 16 01/17/20 14:50 BP 100/60 01/17/20 14:00 Pulse Ox 97 01/17/20 14:50 01/17/20 01/17/20 01/17/20 06:59 14:59 22:59 Intake Total 500 / 500 Output Total 300 / 825 75 / 75 Balance -300 / -106.127 425 / 425 Physical Exam Const: COMMON NORMALS: no apparent distress and oriented x3 HENMT: COMMON NORMALS: oropharynx normal Neck/C-Spine: COMMON NORMALS: no JVD Chest: CHEST: Yes abnormal inspection of the chest barrel chest Resp: AUSCULTATION: diminished lung sounds Cardio: COMMON NORMALS: no JVD, regular rhythm, S1 normal heart sound, S2 normal heart sound and no murmurs RATE: tachycardic RHYTHM: regular rhythm HEART SOUNDS: S1 normal and S2 normal GI: COMMON NORMALS: normal to inspection, nondistended, normoactive bowel so unds and soft to palpation PALPATION: Yes soft and No tender Extremity: COMMON NORMALS: no joint enlargement OTHER: Nonpitting and trace pitting edema. Neuro: COMMON NORMALS: oriented x3 and moves all extremities Skin: COMMON NORMALS: no rashes or lesions noted GENERAL SKIN EXAM: no shira hes or lesions noted Data : 01/17/20 03:40 01/17/20 03:40 A&P Assessment and plan (1) Hypotension: Yesterday levo fed weaned off. Overnight blood pressure stayed stable. Still on the soft side, but overall he is doing better. We will continue prednisone 10 mg without any extra doses today. May transfer out of ICU. This morning tolerated resuming 12.5 mg of metoprolol. Status: Acute Code(s): I95.9 - Hypotension, unspecified (2) GI bleeding: Hemoglobin slightly trended down today to 7.4. Suspect this is dilutional after boluses he has received. He has had no further bloody bowel movements. Endoscopic evaluation with finding of gastritis, no active bleeding. Diverticulosis, hemorrhoids reported in colonoscopy. No active bleeding. Per discussion with surgery, the thought is perhaps he may have had some bleeding from gastritis, or otherwise may have been a resolved diverticular bleed. He is on twice daily IV PPI currently. At home on 20 mg once daily omeprazole. Discussed increasing the dose to 40 mg twice a day. Decreasing the dose was discussed. He was restarted on anticoagulation last night to monitor for any further bleeding as he and family wish to pursue stroke protection for atrial fibrillation. He is usually on 10 mg prednisone chronically. Restarted prednisone due to concern for adrenal insufficiency and severe COPD. Patient and family understand that in case of recurrent bleeding he may need additional evaluation with deep enteroscopy or capsule endoscopy in order to be able to continue anticoagulation. So far his blood counts are stable. Hold aspirin. Hemoglobin usual is around 12-13. Switch to p.o. PPI. Vague abdominal discomfort resolved, no rigidity on palpation. Lipase normal. Status: Acute Code(s): K92.2 - Gastrointestinal hemorrhage, unspecified (3) Advanced COPD: On chronic prednisone 10 mg most recently. 5 L oxygen by nasal cannula chronically. Status: Acute Code(s): J44.9 - Chronic obstructive pulmonary disease, unspecified (4) Chronic anticoagulation: With Eliquis secondary to A. fib. Metoprolol. Status: Acute Code(s): Z79.01 - [facility] (current) use of anticoagulants (5) Chronic steroid use: As above Status: Acute (6) Osteoporosis: Hold bisphosphonate for now due to GI bleed give PPI. Status: Acute Code(s): M81.0 - Age-related osteoporosis without current pathological fracture (7) BPH (benign prostatic hyperplasia): Continue Flomax. Monitor for orthostatic symptoms. Maintain orthostatic precautions. Constipation: Start psyllium Status: Acute Code(s): N40.0 - Benign prostatic hyperplasia without lower urinary tract symptoms Attestations Medical Necessity Statement*: Continue admission for cyst management after GI bleed, with gastritis on chronic steroids, with adrenal insufficiency, hypotension, requiring restarting of steroids as well as continuation of anticoagulation due to atrial fibrillation. Coding Level of Care Code Acute X Ray Consultant for [facility] Diagnoses Hypotension I95.9 GI bleeding K92.2 Advanced COPD J44.9 Chronic anticoagulation Z79.01 Chronic steroid use Osteoporosis M81.0 BPH (benign prostatic hyperplasia) N40.0
[2020-01-17] MEDS: montelukast sodium 10 mg Tablet PO (17:51)
[2020-01-17] MEDS: psyllium powder Pkt 1 PACKET PO (17:52)
[2020-01-17] MEDS: pantoprazole DR 40 mg Tablet PO (17:53)
[2020-01-18] VITALS (10 sets, daily range): BP systolic 101–148; BP diastolic 54–71; PULSE 68–100; RESP 18–26; TEMP 36.4–36.8; O2SAT 94–99
[2020-01-18] MEDS: levalbuterol 0.63 mg/3 mL Neb INHALATION ×4 (03:03→14:23)
[2020-01-18] MEDS: pantoprazole DR 40 mg Tablet PO (04:55)
[2020-01-18 05:45] LABS: Basophils % 0.5 %; Eosinophils # 0.1 10^3/uL (0.0-0.8); Eosinophils % 1.4 %; Hematocrit 25.2 % (42.0-52.0); Hemoglobin 7.6 g/dL (11.7-16.6); Lymphocytes # 1.1 10^3/uL (0.8-4.8); Lymphocytes % 17.3 %; Mean Corpuscular HGB Conc 30.2 g/dL (30.0-36.0); Mean Corpuscular Hemoglobin 31.7 pg (28.0-34.0); Mean Platelet Volume 9.3 fL (7.4-10.4); Monocytes # 0.6 10^3/uL (0.2-0.9); Monocytes % 9.4 %; Neutrophils # 4.3 10^3/uL (1.8-7.7); Neutrophils % 65.5 %; Nucleated Red Blood Cells % 0 %; Platelet Count 167 10^3/cmm (130-400); Positive C 1; Positive M 1; Red Cell Distribution Width 14.4 % (12.1-15.1); White Blood Count 6.6 10^3/uL (4.0-10.0)
[2020-01-18] MEDS: sucralfate 1 gm/10 mL Oral Liq UDC PO ×2 (06:00→10:17)
[2020-01-18 06:02] LABS: Anion Gap 9.5 (5-19); Blood Urea Nitrogen 22 mg/dL (8-23); Calcium 8.9 mg/dL (8.5-10.5); Carbon Dioxide 33 mmol/L (22-29); Chloride 102 mmol/L (98-107); Glucose 94 mg/dL (65-115); Osmolality Calculated 288 mOsm/kg (285-295); Potassium 3.5 mmol/L (3.5-5.1); Sodium 141 mmol/L (136-145)
[2020-01-18 06:41] LABS: Slide Review Slide Review Perform
[2020-01-18] MEDS: psyllium powder Pkt 1 PACKET PO (08:20)
[2020-01-18] MEDS: predniSONE 10 mg Tablet PO (08:20)
[2020-01-18] MEDS: LORazepam 0.5 mg Tablet 0.25 MG PO ×2 (08:20→16:30)
[2020-01-18] MEDS: apixaban 5 mg Tablet PO (08:20)
[2020-01-18] MEDS: metoprolol succinate ER (24 HR) 25 mg Tablet 12.5 MG PO (08:20)
[2020-01-18] MEDS: calcium carb-vit d 600mg/400unit 1 Tablet 1 EACH PO (08:21)
[2020-01-18] MEDS: tamsulosin 0.4 mg Capsule PO (08:21)
--- NOTE | 2020-01-18 09:09 | PC.NURSE ---
Pt reports decrease in anxiety since given PRN anxiety medication. 0 s/s of distress noted.
--- NOTE | 2020-01-18 14:22 | PC.RESP ---
Scanner not working
--- NOTE | 2020-01-18 19:41 | P.DS_ITS ---
Discharge Providers Date of Admission: 01/12/20 17:40 Date of Discharge: January 18, 2020 Attending Provider at Admission: Rommel Rand Attending Provider at Discharge: Rommel Rand Primary Care Provider: Leatha Alvarez MD Diagnoses at Discharge Discharge Diagnosis (1) Hypotension: Status: Acute (2) GI bleeding: Status: Acute (3) Advanced COPD: Status: Acute (4) Chronic anticoagulation: Status: Acute (5) Chronic steroid use: Status: Acute (6) Osteoporosis: Status: Acute (7) BPH (benign prostatic hyperplasia): Status: Acute Reason for Visit Reason for Visit: Reason For Visit: LOWER GI BLEED Hospital Course Hospital Course: 79-year-old gentleman with history of severe COPD, chronically dependent on 5 L of oxygen by nasal cannula at home, on chronic prednisone 10 mg, with history of A. fib, on chronic anticoagulation was admitted for assessment of GI bleeding. He was admitted to intensive care unit, stabilized with IV fluids, and blood was held for him, but did not end up requiring transfusion. His prednisone, aspirin and anticoagulation were held. He underwent evaluation by upper and lower endoscopy due to maroon-colored stools. No clear bleeding focus was seen, however, noted to have gastritis on EGD and diverticulosis, hemorrhoids on colonoscopy. Suspected bleeding either from gastritis, or possible diverticular bleed. Was maintained on twice daily PPI, and discharged omeprazole changed to 40 mg twice a day. Sucralfate was added. His blood counts remained stable, and Eliquis was resumed. Aspirin for now is held. Please reevaluate and resume if this medication is necessary. Even though his breathing remained stable, hospital stay was complicated by adrenal insufficiency with hypotension, requiring resumption of prednisone. His blood pressure stabilized. Today he was feeling well, without any further sign of bloody stool, felt ready to return home. Due to need for chronic anticoagulation, in case of recurrence of GI bleeding without a clearly identified source, discussed with him in case of recurrence may need assessment by more specialized tools including deep enteroscopy or capsule endoscopy which may necessitate transfer to a different facility. Physical Exam Const: COMMON NORMALS: no apparent distress and oriented x3 HENMT: COMMON NORMALS: oropharynx normal Neck/C-Spine: COMMON NORMALS: no JVD Chest: CHEST: Yes abnormal inspection of the chest barrel chest Resp: AUSCULTATION: diminished lung sounds Cardio: COMMON NORMALS: no JVD, regular rhythm, S1 normal heart sound, S2 normal heart sound and no murmurs RATE: tachycardic RHYTHM: regular rhythm HEART SOUNDS: S1 normal and S2 normal GI: COMMON NORMALS: normal to inspection, nondistended, normoactive bowel sounds and soft to palpation PALPATION: Yes soft and No tender Extremity: COMMON NORMALS: no joint enlargement OTHER: Nonpitting and trace pitting edema. Neuro: COMMON NORMALS: oriented x3 and moves all extremities Skin: COMMON NORMALS: no rashes or lesions noted GENERAL SKIN EXAM: no rashes or lesions noted Discharge Data Data Completed and Pending: Completed Studies During Hospitalization Category Date Time Status CT abdomen pelvis w con* [id number] Stat Cat Scan 01/12/20 13:47 Completed XR chest 1V [place] ble [id number] Routine Exams 01/16/20 14:17 Completed XR chest 1V [place] [id number] Urgent Exams 01/12/20 13:44 Completed Labs from last 24 hours 01/18/20 01/18/20 05:32 05:32 WBC 6.6 RBC 2.40 L Hgb 7.6 L Hct 25.2 L MCV 105.0 H MCH 31.7 MCHC 30.2 RDW 14.4 Plt Count 167 MPV 9.3 Neut % (Auto) 65.5 Lymph % (Auto) 17.3 [place] % (Auto) 9.4 Eos % (Auto) 1.4 Baso % (Auto) 0.5 Neut # (Auto) 4.3 Lymph # (Auto) 1.1 [place] # (Auto) 0.6 Eos # (Auto) 0.1 Baso # (Auto) 0.0 Nucleated RBC % (a uto) 0 Nucleated RBCs # 0.0 Sodium 141 Potassium 3.5 Chloride 102 Carbon Dioxide 33 H Anion Gap 9.5 BUN 22 Creatinine 0.7 Glucose 94 Calculated Osmolal ity 288 Calcium 8.9 Vitals: Last Vital Signs Temp 97.6 F 01/18/20 12:00 Pulse 100 01/18/20 16:58 Resp 22 H 01/18/20 16:58 BP 105/57 01/18/20 12:00 Pulse Ox 98 01/18/20 16:58 Discharge Plan Discharge Patient Disposition: Home, Self-Care Condition: Stable Prescriptions: New Metamucil (with sugar) 3.4 gram Powder In Packet 3.4 g PO BID Qty: 30 RF: 0 sucralfate 100 mg/mL Suspension 1 g PO AC&BEDTIME Qty: 420 RF: 0 omeprazole 40 mg capsule,delayed release(DR/EC) 40 mg PO BID Qty: 60 RF: 0 Continued prednisone 10 mg tablet 10 mg PO DAILY RF: 0 potassium chloride 10 mEq tablet extended release 10 meq PO DAILY RF: 0 tamsulosin 0.4 mg capsule 0.4 mg PO DAILY RF: 0 sertraline 25 mg tablet 25 mg PO DAILY RF: 0 montelukast 10 mg tablet 10 mg PO BEDTIME RF: 0 metoprolol succinate 25 mg tablet extended release 24 hr 12.5 mg PO DAILY RF: 0 hydroxyzine HCl 10 mg tablet 10 mg PO QID PRN (Reason: Anxiety) RF: 0 fluticasone propionate 50 mcg/actuation spray,suspension 1 spray INTRANASAL BID RF: 0 Eliquis 5 mg tablet 5 mg PO BID RF: 0 levalbuterol HCl 0.63 mg/3 mL Solution For Nebulization See Rx Instructions .ROUTE .COMPLEX RF: 0 Imitrex 100 mg Tablet 0 mg PO .COMPLEX RF: 0 Calcium 600 600 mg calcium (1,500 mg) Tablet 600 mg PO DAILY RF: 0 budesonide 0.5 mg/2 mL Suspension For Nebulization 0.5 mg INHALATION BID RF: 0 loratadine 10 mg Tablet 10 mg PO DAILY RF: 0 Perforomist 20 mcg/2 mL Solution For Nebulization 2 ml INHALATION BID RF: 0 Vitamin D3 2,000 unit Tablet 2,000 unit PO BID RF: 0 Slow Fe 1 tab PO DAILY RF: 0 Spiriva Respimat 2.5 mcg/actuation Mist 2 puff INHALATION DAILY RF: 0 Changed furosemide 40 mg tablet 40 mg PO DAILY PRN (Reason: Edema) Qty: 0 RF: 0 Discontinued alendronate 70 mg tablet 70 mg PO Q7D RF: 0 aspirin [Aspirin Low Dose] 81 mg Tablet,Delayed Release (Dr/Ec) 81 mg PO DAILY RF: 0 omeprazole 20 mg Capsule,Delayed Release(Dr/Ec) 20 mg PO DAILY RF: 0 Discharge Orders: Discharge Order (Routine); Ordered 01/18/20 Ordered By: Rommel Rand Referrals: Leatha Alvarez MD [Primary Care Provider] - 4-7 days (PLEASE CALL SUNDAY TO SET UP A FOLLOW UP APPOINTMENT ) Discharge Diet: GI Soft Discharge Activity: Increase activity as tolerated Patient Instructions: Sucralfate (By mouth), Omeprazole (By mouth), Gastrointestinal Bleeding (DC), Hypotension (DC), GI Discharge Instructions Activity Restrictions/Additional Instructions: If you experience blood in your stool, other abnormal bleeding, severe abdominal pain, dizziness, fainting, persistently low blood pressures or other unusual symptoms, please seek medical attention. Please monitor your blood pressure 3 times a day, record values to bring to your appointment. If you experience recurrent bleeding, and come back to the hospital, a specialized procedure may be needed like deep enteroscopy or capsule endoscopy to perform additional investigation and this may require transfer to a different facility. Continue oxygen as previously. Avoid any NSAIDs like ibuprofen, Aleve, etc. Discharge Date/Time: 01/18/20 16:58 Discharge Attestations Time Spent in Discharge Care*: greater than 30 min Quality Metrics Clinical Quality Measures During this hospital stay, did patient experience: None Coding Level of Care Code Acute Site Acquisition Specialist for [facility] Diagnoses Hypotension I95.9 GI bleeding K92.2 Advanced COPD J44.9 Chronic anticoagulation Z79.01 Chronic steroid use Osteoporosis M81.0 BPH (benign prostatic hyperplasia) N40.0
== END 2020-01-18 16:58 | disposition home or self-care (01) | DRG 378 ==
LOC: ER 16:35 → ICU 17:41 → MEDSURG 01-17 15:33
PROVIDERS: Surgery; Admitting Provider Internal Medicine; Emergency Provider Family Medicine; Family Provider Family Medicine; PCP Family Medicine; Visit Provider Internal Medicine
PROC: 0DJ08ZZ Inspection of Upper Intestinal Tract, Via Natural or Artificial Opening Endoscopic (ICD-10-PCS; CPT 43235; principal; 2020-01-14 11:00)
PROC: 0DJD8ZZ Inspection of Lower Intestinal Tract, Via Natural or Artificial Opening Endoscopic (ICD-10-PCS; CPT 45378; 2020-01-14 11:00)
DX: K29.71 Gastritis, unspecified, with bleeding (principal); J96.10 Chronic respiratory failure, unspecified whether with hypoxia or hypercapnia; D62 Acute posthemorrhagic anemia; E27.40 Unspecified adrenocortical insufficiency; I48.91 Unspecified atrial fibrillation; Z79.01 Long term (current) use of anticoagulants; Z79.82 Long term (current) use of aspirin; J44.9 Chronic obstructive pulmonary disease, unspecified; Z79.52 Long term (current) use of systemic steroids; Z99.81 Dependence on supplemental oxygen; F41.8 Other specified anxiety disorders; N40.0 Benign prostatic hyperplasia without lower urinary tract symptoms; M81.0 Age-related osteoporosis without current pathological fracture; Z87.891 Personal history of nicotine dependence; K44.9 Diaphragmatic hernia without obstruction or gangrene; K57.90 Diverticulosis of intestine, part unspecified, without perforation or abscess without bleeding; K64.8 Other hemorrhoids; I95.9 Hypotension, unspecified
CPT/HCPCS: 12345; 36415; 43235; 45378; 71045; 74177; 80048; 80053; 81003; 83605; 83690; 83880; 85007; 85014; 85018; 85025; 85610; 86850; 86900; 93005; 94640; 94664; 96375; 99283; C9113; J2704; J7030; J7040; J7512; J7614; J7626; Q9967

== ENCOUNTER 2020-02-04 11:11 | Inpatient (IN) | payer MEDICARE, MEDICAID, SELFPAY ==
[2020-02-04] VITALS (41 sets, daily range): BP systolic 89–168; BP diastolic 58–103; PULSE 90–113; RESP 11–35; TEMP 36.6–36.9; O2SAT 91–100; BMI 20.9
--- NOTE | 2020-02-04 11:21 | ECG_ITS ---
Measurements Intervals [place] Rate: 106 P: 90 VT: 168 QRS: -65 QRSD: 103 T: 76 QT: 344 QTc: 458 SINUS TACHYCARDIA LOW QRS VOLTAGE IN EXTREMITY LEADS [QRS DEFLECTION < 0.5 mV IN LIMB LEADS] LEFT ANTERIOR FASCICULAR BLOCK [QRS AXIS <= -45, QR IN I, RS IN II] INFERIOR MYOCARDIAL INFARCTION [40+ ms Q WAVE AND/OR ST/T ABNORMALITY IN II/aVF], PROBABLY OLD Compared to ECG 01/12/2020 15:49:16 Low QRS voltage now present Left anterior fascicular block now present Myocardial infarct finding now present Left-axis deviation no longer present Incomplete right bundle-branch block no longer present Electronically Signed On 02-04-2020 19:35:27 CDT by Foreign Mcmanus M.D. [email or web address]
--- NOTE | 2020-02-04 11:21 | XRR_ITS ---
PROCEDURE INFORMATION: Exam: XR Chest, 1 View Exam date and time: 02/04/2020 11:38 AM Age: 79 years old Clinical indication: Cough and dyspnea. TECHNIQUE: Imaging protocol: XR of the chest Views: 1 view. COMPARISON: CR XR chest 1V portable [id number] 01/16/2020 3:02 PM FINDINGS: Lungs: There is severe emphysema. No pneumonia or pulmonary edema. Pleural space: No pleural effusion or pneumothorax. Heart/Mediastinum: The cardiac silhouette is not enlarged. The mediastinal contours are normal. Bones/joints: Prior sternotomy. XR/XR chest 1V portable [id number] IMPRESSION: Severe emphysema.
--- NOTE | 2020-02-04 11:22 | ED_ITS ---
Entered by Tamara Richards, acting as scribe for Jaren Barclay DO HPI - SOB/Dyspnea General: Chief Complaint: Shortness of Breath/Dyspnea Stated Complaint: DIFFICULTY BREATHING Time Seen by Provider: 02/04/20 11:21 History of Present Illness: HPI Narrative: 79-year-old male presents with complaints of shortness of breath is a history of COPD and is routinely on 4 L by nasal cannula at home. He was recently hospitalized here at [facility] on Eliquis due to A. fib and at that time had GI bleeding he had full evaluation no definitive source was found. Presents emergency room today with complaint of a cough and shortness of breath began last night become progressively worsening and he has had some productive cough as well he denies any vomiting or diarrhea. He has been on Levaquin for the last couple of days. He does have some sores which is been followed by his PCP use which is what they started on Levaquin for he also had a abscess drained on his back recently no further drainage from that. MD elicited complaint: shortness of breath and cough Pertinent past history: COPD Context: recent illness Timing: progressively worsening Severity: severe Exacerbating factors: exertion Relieving factors: oxygen and rest Known history of: COPD Associated symptoms: Reports orthopnea; Deny abdominal pain, chest pain, fever(s), nausea or vomiting Treatment prior to arrival: none Review of Systems Const: Reports: chills, body aches, fatigue and malaise; Denies: fever or change in appetite ENMT: Denies: enlarged tonsils Card: Reports: shortness of breath on exertion and shortness of breath when lying down; Denies: chest pain or edema Resp: Reports: shortness of breath and productive cough; Denies: non-productive cough GI: Denies: abdominal pain, nausea, vomiting, vomiting blood, coffee grounds in vomit, diarrhea, constipation, bloating, blood in stool or black tarry stool : Denies: flank pain, painful urination, urinary frequency or urinary urgency Skin/Breast: Denies: rash or itching PFSH ED PFSH: Medical History Advanced COPD Anxiety disorder Atrial fib/flutter, transient BPH (benign prostatic hyperplasia) Chronic anticoagulation Chronic steroid use Depression Hx of migraine headaches Osteoporosis Surgical History H/O pneumonectomy Status post colonoscopy Family History Other CAD (coronary artery disease) Social History Smoking and tobacco status: former smoker Quit status (tobacco): has quit using tobacco Year quit tobacco: 42 ya Alcohol intake: never Household members: other Details: Son and [id number] Marital status: Current occupational status: retired Physical Exam Const: COMMON NORMALS: no apparent distress GENERAL APPEARANCE: cooperative and comfortable ORIENTATION/CONSCIOUSNESS: Yes awake, Yes oriented to person, Yes oriented to place and Yes oriented to time HENMT: COMMON NORMALS: normocephalic, head/scalp atraumatic, hearing grossly normal bilaterally, external ears normal, EAC's normal, TM's normal bilaterally, nasal mucous membranes and turbinates normal, moist oral mucous membranes and oropharynx normal HEAD & SCALP: normocephalic and atraumatic NOSE: nasal mucous membranes and turbinates normal EXTERNAL EAR: Yes external ears normal EXTERNAL AUDITORY CANAL: EAC's normal TYMPANIC MEMBRANE: TM's normal bilaterally Eye: COMMON NORMALS: PERRL, EOMs intact bilaterally, conjunctivae normal and no scleral icterus CONJUNCTIVA: Yes conjunctivae normal PUPIL: Yes PERRL Neck/C-Spine: COMMON NORMALS: full ROM, no lymphadenopathy, supple and no JVD Lymph: LYMPHATIC: no lymphadenopathy noted and no lymphedema noted Resp: AUSCULTATION: rhonchi, wheezes and diminished lung sounds Cardio: COMMON NORMALS: no JVD, regular rate, regular rhythm and no murmurs RATE: regular rate RHYTHM: regular rhythm GI: COMMON NORMALS: soft to palpation and no hepatosplenomegaly AUSCULTATION: Yes normoactive bowel sounds PALPATION: Yes soft, No tender, No guarding and Yes no hepatosplenomegaly Extremity: COMMON NORMALS: normal to inspection, normal capillary refill, no clubbing, cyanosis or edema, no calf tenderness and no pedal edema Neuro: SENSORIUM/ORIENTATION: Yes oriented to person, Yes oriented to place and Yes oriented to time Skin: COMMON NORMALS: no rashes or lesions noted GENERAL SKIN EXAM: no rashes or lesions noted Course ED course: Will admit for exacerbation of COPD patient is requiring oxygen support discussed Dr. Rand. Vital Signs: Vital signs: Vital Signs Temperature 97.8 F 02/04/20 20:00 Pulse Rate 121 H 02/05/20 13:26 Respiratory Rate 15 02/05/20 15:04 Blood Pressure 99/73 02/05/20 13:00 Pulse Oximetry 94 02/05/20 13:25 MDM - SOB/Dyspnea Lab Data: Labs: Lab Results 02/04/20 02/04/20 02/04/20 Range/Units 11:30 11:56 12:02 WBC 8.6 (4.0-10.0) 10^3/ uL RBC 3.44 L (4.1-5.3) 10^6/u L Hgb 9.7 L (11.7-16.6) g/dL Hct 33.4 L (42.0-52.0) % MCV 97.1 H (80-94) fL MCH 28.2 (28.0-34.0) pg MCHC 29.0 L (30.0-36.0) g/dL RDW 14.3 (12.1-15.1) % Plt Count 281 (130-400) 10^3/c mm MPV 9.2 (7.4-10.4) fL Neut % (Auto) 80.0 % Lymph % (Auto) 6.3 % [place] % (Auto) 9.7 % Eos % (Auto) 0.1 % Baso % (Auto) 0.5 % Neut # (Auto) 6.9 (1.8-7.7) 10^3/u L Lymph # (Auto) 0.5 L (0.8-4.8) 10^3/u L [place] # (Auto) 0.8 (0.2-0.9) 10^3/u L Eos # (Auto) 0.0 (0.0-0.8) 10^3/u L Baso # (Auto) 0.0 (0.0-0.1) 10^3/u L Nucleated RBC % (a uto) 0 % Nucleated RBCs # 0.0 /100WBC Specimen Type Arterial Sample Site Radial, right ABG pH 7.35 (7.35-7.45) ABG pCO2 66.9 H* (35-45) mmHg ABG pO2 144.0 H (80.0-100.0) mmH g ABG HCO3 36.5 H (22-26) mmol/L ABG O2 Saturation 99.6 ABG Base Excess 8.9 H (-2.0-2.0) mmol/ L Roberto [place] Test Pos A-a O2 Gradient 57.3 H (5-10) mmHg Hematocrit 31.7 L (42-52) % Hgb O2 Saturation 98.2 (95-100) % Carboxyhemoglobin 1.0 (0.4-20.1) %THgb Methemoglobin 0.4 (0.4-1.5) % Total Hemoglobin 10.4 L (14-18) g/dL Sodium 141.0 (131-143) mmol/L Potassium 4.3 (3.5-5.0) mmol/L Glucose 129.0 H (70-115) mg/dL Ionized Calcium 1.3 (1.1-1.4) mmol/L O2 Delivery Device Bipap FiO2 40.0 % [employer] ID jmn Chloride (98-107) mmol/L Carbon Dioxide (22-29) mmol/L Anion Gap (5-19) BUN (8-23) mg/dL Creatinine (0.7-1.2) mg/dL Calculated Osmolal ity (285-295) mOsm/k g Lactic Acid (0.5-2.2) mmol/L Calcium (8.5-10.5) mg/dL Total Bilirubin (0.15-1.2) mg/dL AST (0-40) U/L ALT (0-41) U/L Alkaline Phosphata se (40-130) IU/L Troponin T Baselin e (0-15) ng/mL Total Protein (6.6-8.7) g/dL Albumin (3.5-5.2) g/dL Globulin (1.3-4.6) g/dL Influenza Type A A g Negative (Negative) POC Influenza B Ag Negative (Negative) 02/04/20 02/04/20 02/04/20 Range/Units 12:02 12:02 12:02 WBC (4.0-10.0) 10^3/ uL RBC (4.1-5.3) 10^6/u L Hgb (11.7-16.6) g/dL Hct (42.0-52.0) % MCV (80-94) fL MCH (28.0-34.0) pg MCHC (30.0-36.0) g/dL RDW (12.1-15.1) % Plt Count (130-400) 10^3/c mm MPV (7.4-10.4) fL Neut % (Auto) % Lymph % (Auto) % [place] % (Auto) % Eos % (Auto) % Baso % (Auto) % Neut # (Auto) (1.8-7.7) 10^3/u L Lymph # (Auto) (0.8-4.8) 10^3/u L [place] # (Auto) (0.2-0.9) 10^3/u L Eos # (Auto) (0.0-0.8) 10^3/u L Baso # (Auto) (0.0-0.1) 10^3/u L Nucleated RBC % (a uto) % Nucleated RBCs # /100WBC Specimen Type Sample Site ABG pH (7.35-7.45) ABG pCO2 (35-45) mmHg ABG pO2 (80.0-100.0) mmH g ABG HCO3 (22-26) mmol/L ABG O2 Saturation ABG Base Excess (-2.0-2.0) mmol/ L Roberto [place] Test A-a O2 Gradient (5-10) mmHg Hematocrit (42-52) % Hgb O2 Saturation (95-100) % Carboxyhemoglobin (0.4-20.1) %THgb Methemoglobin (0.4-1.5) % Total Hemoglobin (14-18) g/dL Sodium 140 (131-143) mmol/L Potassium 4.3 (3.5-5.0) mmol/L Glucose 148 H (70-115) mg/dL Ionized Calcium (1.1-1.4) mmol/L O2 Delivery Device FiO2 % [employer] ID Chloride 96 L (98-107) mmol/L Carbon Dioxide 36 H (22-29) mmol/L Anion Gap 12.3 (5-19) BUN 23 (8-23) mg/dL Creatinine 1.1 (0.7-1.2) mg/dL Calculated Osmolal ity 289 (285-295) mOsm/k g Lactic Acid 1.3 (0.5-2.2) mmol/L Calcium 10.1 (8.5-10.5) mg/dL Total Bilirubin 0.4 (0.15-1.2) mg/dL AST 21 (0-40) U/L ALT 15 (0-41) U/L Alkaline Phosphata se 49 (40-130) IU/L Troponin T Baselin e 49 H (0-15) ng/mL Total Protein 6.3 L (6.6-8.7) g/dL Albumin 3.7 (3.5-5.2) g/dL Globulin 2.6 (1.3-4.6) g/dL Influenza Type A A g (Negative) POC Influenza B Ag (Negative) Discharge Plan Discharge Admit Provider: Rommel Rand Clinical Impression: COPD exacerbation, Chronic steroid use, BPH (benign prostatic hyperplasia), Lower gastrointestinal hemorrhage Condition: Stable Discharge Date/Time: 02/04/20 15:37 Coding Level of Care Code ED Scarfer Operator for Chg Fwd Exam Comprehensive The documentation recorded by the Maurice hernandez Bridget Annette, accurately reflects the service I personally performed and the decisions made by Deny villa Curtis L, Feb 04, 2020 11:11
[2020-02-04 11:42] LABS: ABG PH Result 7.35 (7.35-7.45); Alveolar-Arterial Oxygen Gradi 57.3 mmHg (5-10); Arterial Blood Gas Hematocrit 31.7 % (42-52); Base Excess ABG 8.9 mmol/L (-2.0-2.0); Blood Gas Allen Test Pos; Blood Gas Sample Site Radial, right; Blood Gas Sample Type Arterial; HCO3 ABG 36.5 mmol/L (22-26); HGB O2 Sat 98.2 % (95-100); Ionized Calcium Level - ABG 1.3 mmol/L (1.1-1.4); Methemoglobin 0.4 % (0.4-1.5); Oxygen Device BIPAP; Oxygen Saturation ABG 99.6; Potassium Level - ABG 4.3 mmol/L (3.5-5.0); Total Hemoglobin 10.4 g/dL (14-18)
[2020-02-04 11:44] LABS: ABG PCO2 66.9 mmHg (35-45)
[2020-02-04] MEDS: ipratropium-albuterol 3 mL Neb INHALATION (11:54)
[2020-02-04 12:12] LABS: Basophils % 0.5 %; Eosinophils % 0.1 %; Hematocrit 33.4 % (42.0-52.0); Hemoglobin 9.7 g/dL (11.7-16.6); Lymphocytes # 0.5 10^3/uL (0.8-4.8); Lymphocytes % 6.3 %; Mean Corpuscular Hemoglobin 28.2 pg (28.0-34.0); Mean Corpuscular Volume 97.1 fL (80-94); Mean Platelet Volume 9.2 fL (7.4-10.4); Monocytes # 0.8 10^3/uL (0.2-0.9); Monocytes % 9.7 %; Neutrophils # 6.9 10^3/uL (1.8-7.7); Nucleated Red Blood Cells % 0 %; Platelet Count 281 10^3/cmm (130-400); Red Blood Count 3.44 10^6/uL (4.1-5.3); Red Cell Distribution Width 14.3 % (12.1-15.1); White Blood Count 8.6 10^3/uL (4.0-10.0)
[2020-02-04 12:26] LABS: Influenza A by IFA Negative (Negative); Influenza B by IFA Negative (Negative)
[2020-02-04 12:32] LABS: Alanine Aminotransferase 15 U/L (0-41); Albumin Level 3.7 g/dL (3.5-5.2); Alkaline Phosphatase 49 IU/L (40-130); Anion Gap 12.3 (5-19); Aspartate Amino Transferase 21 U/L (0-40); Blood Urea Nitrogen 23 mg/dL (8-23); Calcium 10.1 mg/dL (8.5-10.5); Carbon Dioxide 36 mmol/L (22-29); Chloride 96 mmol/L (98-107); Globulin 2.6 g/dL (1.3-4.6); Glucose 148 mg/dL (65-115); Lactic Sepsis W/Reflex 1.3 mmol/L (0.5-2.2); Osmolality Calculated 289 mOsm/kg (285-295); Potassium 4.3 mmol/L (3.5-5.1); Sodium 140 mmol/L (136-145); Total Bilirubin 0.4 mg/dL (0.15-1.2); Total Protein 6.3 g/dL (6.6-8.7)
[2020-02-04 12:34] LABS: Troponin(5th) Baseline 49 ng/mL (0-15)
--- NOTE | 2020-02-04 13:21 | ECG_ITS ---
Measurements Intervals [place] Rate: 105 P: 91 MO: 168 QRS: -53 QRSD: 105 T: 87 QT: 336 QTc: 445 SINUS TACHYCARDIA WITH OCCASIONAL VENTRICULAR PREMATURE COMPLEXES POSSIBLE RIGHT VENTRICULAR CONDUCTION DELAY [RSR (QR) IN V1/V2] LEFT ANTERIOR FASCICULAR BLOCK [QRS AXIS <= -45, QR IN I, RS IN II] Compared to ECG 01/12/2020 15:49:16 Ventricular premature complex(es) now present Left anterior fascicular block now present Left-axis deviation no longer present Incomplete right bundle-branch block no longer present Electronically Signed On 02-04-2020 19:36:39 CDT by Foreign Mcmanus M.D. [email or web address]
[2020-02-04 14:27] LABS: Troponin 5 2HR 51.11 ng/mL (0-15); Troponin 5 2HR Delta 2.11 ABS# (0-10)
--- NOTE | 2020-02-04 15:32 | PM.HP ---
Providers/Chief Complaint Admitting Physician: Rommel Rand Primary Care Provider: Leatha Alvarez MD Chief Complaint: DIFFICULTY BREATHING History of Present Illness Mauricio Bah SR is a 79 year old male with severe COPD, currently on 4 L oxygen at home. On chronic prednisone [address] Ruggiero in [place], was recently admitted here with GI bleeding while on chronic anticoagulation with Eliquis due to A. fib, with endoscopic evaluation not identifying a clear source, possibly gastritis, versus diverticular bleed. This had resolved, and he tolerated well restarting anticoagulation. He now presents due to cough, dyspnea, beginning with dry cough last night, then turning into productive cough this morning, severe dyspnea at rest. Son reports that he had some home health aides who came to see him last week who were ill. Chest x-ray does not reveal pneumonia. Rapid influenza screen is negative. He has mild tachycardia in the 90s, but no fever or leukocytosis. He is tachypneic at 24 breaths/min. ABG 7.35/66.9/144 on 40% FiO2. He received a dose of methylprednisolone on the way to the hospital. Currently on BiPAP. In the last few days he has also developed lower extremity edema, although denies orthopnea. He has been on Levaquin 500 mg daily since Sunday. His [id number]-yva started antibiotic which is normally provided for him by his production intern, due to a pimple on his back which on Sunday ruptured draining some foul-smelling contents. He has a chronic wound on his right elbow, left buttock. Elbow wound has been draining as well. He follows with his PCP about this. Does not go to wound care clinic. Review of Systems Const: Reports: malaise and other (Very limited functioning, recently has been getting very dyspneic even with minimal exertion.); Denies: fever, chills or body aches Eyes: Denies: change in vision or eye redness ENMT: Denies: throat pain, oral sores/lesions or ear pain Card: Denies: chest pain, edema, pre-syncope or shortness of breath on exertion Resp: Reports: shortness of breath and productive cough; Denies: coughing up blood GI: Denies: abdominal pain, nausea, vomiting, diarrhea, constipation, blood in stool or black tarry stool : Denies: flank pain, difficulty urinating, urinary frequency or blood in urine Musc: Denies: back pain, joint swelling or redness Skin/Breast: Reports: new lesion (On the right buttock, developed last weekend, started as a pimple, ruptured on Sunday draining foul-smelling contents.); Denies: rash or sores Neuro: Denies: headache, numbness in extremities, weakness in extremities, dizziness, confusion or seizure-like activity Endo: Denies: excessive urination or excessive thirst [place]/Lymph: Denies: easy bleeding or purpura All/Imm: Denies: hives, throat swelling or tongue swelling Medications/Allergies Home Medications Medication Instructions Recorded Confirmed Last Taken Type alendronate 70 mg PO Q7D 02/04/20 02/04/20 01/28/20 History aspirin 81 mg PO DAILY 02/04/20 02/04/20 02/03/20 History levofloxacin [Levaquin] 500 mg PO DAILY 02/04/20 02/04/20 02/03/20 History revefenacin [Yupelri] 175 mcg INHALATION DAILY 02/04/20 02/04/20 02/03/20 History Allergies Allergy/AdvReac Type Severity Reaction Status Date / Time albuterol AdvReac Intermediate Tachycardia Verified 01/12/20 17:09 Penicillins AdvReac Intermediate Tachycardia Verified 01/12/20 17:02 PFSH Acute PFSH: Medical History Advanced COPD Anxiety disorder Atrial fib/flutter, transient BPH (benign prostatic hyperplasia) Chronic anticoagulation Chronic steroid use Depression Hx of migraine headaches Osteoporosis Surgical History H/O pneumonectomy Status post colonoscopy Family History Other CAD (coronary artery disease) Social History Smoking and tobacco status: former smoker Quit status (tobacco): has quit using tobacco Year quit tobacco: 40 ya Alcohol intake: never Household members: other Details: Son and [id number]-pi-don Marital status: Current occupational status: retired Vitals/I&O/Wt Last Vital Signs Temp 98.2 F 02/04/20 11:12 Pulse 96 02/04/20 14:58 Resp 24 H 02/04/20 14:58 BP 145/86 02/04/20 14:58 Pulse Ox 100 02/04/20 14:58 Weight last 48 hrs Weight 68.039 kg Physical Exam Const: COMMON NORMALS: oriented x3 NUTRITIONAL APPEARANCE: cachectic OTHER: On BiPAP does not appear in distress, however, is motionless, does not speak, only nodding, and having his son do most of the talking. Appears chronically ill. HENMT: COMMON NORMALS: oropharynx normal Neck/C-Spine: COMMON NORMALS: no JVD Chest: OTHER: Barrel chest Resp: COMMON NORMALS: normal respiratory effort AUSCULTATION: breath sounds absent Cardio: COMMON NORMALS: no JVD, regular rhythm, S1 normal heart sound, S2 normal heart sound and no murmurs RHYTHM: regular rhythm HEART SOUNDS: S1 normal and S2 normal GI: COMMON NORMALS: normal to inspection, nondistended, normoactive bowel sounds, soft to palpation and non-tender PALPATION: Yes soft Extremity: COMMON NORMALS: no joint enlargement GENERAL: Yes edema (4+ bilateral lower extremities below the knee) Neuro: COMMON NORMALS: oriented x3 and moves all extremities Skin: COMMON NORMALS: no rashes or lesions noted LESIONS: lesion noted (Right elbow about 4 mm lesion, covered by dressing, minimal rim of surrounding erythema, minimal serous drainage. Lesion on the right buttock, although could not visualize during the history as he became uncomfortable. Reported chronic lesion on the left buttock.) Data : 02/04/20 12:02 02/04/20 12:02 Micro: Microbiology 02/04/20 11:55 Blood Culture - Preliminary Blood SPECIMEN COLLECTED 02/04/20 12:02 Blood Culture - Preliminary Blood SPECIMEN COLLECTED A&P Assessment and plan (1) COPD exacerbation: Severe exacerbation of COPD with cough, purulent phlegm, dyspnea, requiring by support. Reports that his home health aides last week appeared sick. Influenza negative, however, empirically will still treat him with oseltamivir. We will continue Levaquin, add Zosyn. Check MRSA PCR. Concern for high-dose IV steroids due to recent GI bleed possibly from gastritis (versus diverticular), anticoagulated for A. fib. Received steroids on the way here. Will for now cannula lower dose Solu-Medrol. Budesonide. Continue his other nebs. Collect sputum culture. Status: Acute Code(s): J44.1 - Chronic obstructive pulmonary disease with (acute) exacerbation Additional A&P Information Lower extremity edema: For now elevate extremities. He does not have orthopnea. There is no DVT. I am not suspecting CHF exacerbation. Appears this may be secondary to stasis, poor nutritional status. Currently blood pressure is also soft and would be very to give him a diuretic. For now we will hold his home dose Lasix. Resume once blood pressure improves. Buttock wound: Reportedly draining purulent, foul-smelling drainage on Sunday. His [id number] because of that start him on Levaquin 500 mg daily given to him by his production intern. Will assess by ultrasound to see if any residual collection that needs I&D. Right elbow ulceration: Small amount of serous drainage, more reported in ICU. Culture collected. We will follow-up. Continue dressing changes. Once he improves, due to ulceration being persistent chronic, with some undermining, may need additional assessment by MRI to assess for osteomyelitis. Refer for follow-up with wound care clinic. Mild troponin elevation: Suspected secondary to acute respiratory failure with hypoxia. No chest pain. Recent GI bleed Chronic anticoagulation Atrial fibrillation: Continue metoprolol Chronic steroid Osteoporosis BPH On discussion with him with his son present limited code, he would still want intubation despite advanced COPD and risk of difficult extubation, however, in case of cardiac arrest would not want chest compressions. Attestations Medical Necessity Statement*: Admission of over 2 midnights is going to be needed for assessment management of severe COPD exacerbation in the setting of recent GI bleed, anticoagulation. Coding Level of Care Code Acute Project Management Director for Kaylee Peterson Diagnoses COPD exacerbation J44.1
--- NOTE | 2020-02-04 16:08 | US_ITS ---
WS: [id number] Subcutaneous ultrasound of right buttock, 02/04/2020 Clinical Data: R buttock wound - assess for collection Comparison: None. Findings: The posterior aspect of the right buttock was imaged. There is sinus tract leading from the skin in t he subcutaneous tissue. However no abnormal fluid collection is seen. There is no evidence of an absc ess, cyst or mass. US/US soft tissue/extremity [id number] Impression: 1. Sinus tract imaged from skin and subcutaneous tissue of the right buttock. 2. Negative for cyst, mass, abscess or fluid collection.
--- NOTE | 2020-02-04 16:15 | PC.NURSE ---
Addendum entered by Rani Gil RN 02/04/20 17:51: PErsonal items consist of the pajamas and t-shirt pt was wearing. Original Note: Pt arrives to ICu from Ed, alert and oriented. Pt on 6lpm/NC, pt has labored breathing and accessory muscle use. Bipap admin. Pt has 3 pressure ulcers and 3-4 + pitting edema on bilateral feet. Right AC IV noted.
[2020-02-04] MEDS: ipratropium 0.5 mg/2.5 mL Neb INHALATION ×3 (16:44→23:51)
[2020-02-04] MEDS: levalbuterol 0.63 mg/3 mL Neb NEBULIZER ×2 (16:44→21:23)
[2020-02-04] MEDS: enoxaparin 80 mg/0.8 mL Syringe 70 MG SUBCUT (16:52)
[2020-02-04] MEDS: levofloxacin-dextrose 5 % 750 MG/150 ML PREMIX 150 MG IV (16:53)
[2020-02-04] MEDS: sodium chloride 0.9% 1,000 ML 100 ML IV (16:54)
--- NOTE | 2020-02-04 17:21 | ECG_ITS ---
Measurements Intervals [place] Rate: 119 P: 78 [place]: 199 QRS: -11 QRSD: 94 T: 74 QT: 283 QTc: 399 SINUS TACHYCARDIA WITH OCCASIONAL VENTRICULAR PREMATURE COMPLEXES POSSIBLE RIGHT VENTRICULAR CONDUCTION DELAY [RSR (QR) IN V1/V2] ABNORMAL RHYTHM ECG Compared to ECG 01/12/2020 15:49:16 Ventricular premature complex(es) now present Left-axis deviation no longer present Incomplete right bundle-branch block no longer present Electronically Signed On 02-04-2020 19:36:13 CDT by Foreign Mcmanus M.D. [id number]
[2020-02-04 18:36] LABS: Troponin 5 6HR 42.94 ng/mL (0-15)
[2020-02-04 18:43] LABS: Troponin 5 6HR Delta -6.06 ng/L (0-12)
[2020-02-04] MEDS: oseltamivir phosphate 75 mg Capsule PO (18:56)
[2020-02-04] MEDS: pantoprazole DR 40 mg Tablet PO (18:56)
[2020-02-04] MEDS: fluticasone nasal spray 16gm Btl 1 SPRAY INTRANASAL (18:58)
[2020-02-04] MEDS: piperacillin-tazobactam 3.375 GM in sodium chloride 0.9% (plus) 100 ML IV (19:14)
[2020-02-04] MEDS: montelukast sodium 10 mg Tablet PO (20:41)
[2020-02-04] MEDS: budesonide 0.5 mg/2 mL Neb INHALATION (21:23)
[2020-02-04] MEDS: acetaminophen 325 mg Tablet 650 MG PO (23:03)
[2020-02-05] VITALS (48 sets, daily range): BP systolic 67–156; BP diastolic 48–96; PULSE 67–138; RESP 0–32; TEMP 36.4; O2SAT 94–100
[2020-02-05] MEDS: sodium chloride 0.9% 1,000 ML 100 ML IV ×2 (03:51→20:59)
[2020-02-05] MEDS: piperacillin-tazobactam 3.375 GM in sodium chloride 0.9% (plus) 100 ML IV ×3 (03:52→20:56)
[2020-02-05] MEDS: enoxaparin 80 mg/0.8 mL Syringe 70 MG SUBCUT ×2 (04:33→15:48)
[2020-02-05] MEDS: ipratropium 0.5 mg/2.5 mL Neb INHALATION ×6 (04:54→23:18)
[2020-02-05 05:12] LABS: Hematocrit 26.5 % (42.0-52.0); Hemoglobin 7.8 g/dL (11.7-16.6); Lymphocytes # 0.1 10^3/uL (0.8-4.8); Lymphocytes % 2.8 %; Mean Corpuscular HGB Conc 29.4 g/dL (30.0-36.0); Mean Corpuscular Hemoglobin 27.9 pg (28.0-34.0); Mean Corpuscular Volume 94.6 fL (80-94); Mean Platelet Volume 9.1 fL (7.4-10.4); Monocytes # 0.3 10^3/uL (0.2-0.9); Monocytes % 5.9 %; Neutrophils # 4.4 10^3/uL (1.8-7.7); Neutrophils % 88.7 %; Nucleated Red Blood Cells % 0 %; Platelet Count 231 10^3/cmm (130-400); Red Cell Distribution Width 14.2 % (12.1-15.1); White Blood Count 4.9 10^3/uL (4.0-10.0)
[2020-02-05 05:29] LABS: Anion Gap 11.2 (5-19); Blood Urea Nitrogen 22 mg/dL (8-23); Carbon Dioxide 33 mmol/L (22-29); Chloride 100 mmol/L (98-107); Creatinine Clr Calc Pharmacy 70.3846; Glucose 134 mg/dL (65-115); Osmolality Calculated 289 mOsm/kg (285-295); Potassium 4.2 mmol/L (3.5-5.1); Sodium 140 mmol/L (136-145)
[2020-02-05] MEDS: levalbuterol 0.63 mg/3 mL Neb NEBULIZER ×2 (08:29→13:24)
[2020-02-05] MEDS: budesonide 0.5 mg/2 mL Neb INHALATION (08:29)
[2020-02-05] MEDS: fluticasone nasal spray 16gm Btl 1 SPRAY INTRANASAL (09:37)
[2020-02-05] MEDS: aspirin 81 mg Chew Tablet PO (09:38)
[2020-02-05] MEDS: sertraline 50 mg Tablet 25 MG PO (09:38)
[2020-02-05] MEDS: tamsulosin 0.4 mg Capsule PO (09:38)
[2020-02-05] MEDS: metoprolol succinate ER (24 HR) 25 mg Tablet 12.5 MG PO (09:39)
[2020-02-05] MEDS: pantoprazole DR 40 mg Tablet PO (09:39)
[2020-02-05] MEDS: oseltamivir phosphate 75 mg Capsule PO ×2 (09:40→18:40)
--- NOTE | 2020-02-05 12:27 | P.PN_ITS ---
Subjective Subjective: Interval history: This morning he was feeling better, in the afternoon again more short of breath. Had to be placed back on BiPAP. Very limited respiratory reserve. Very short of breath with minimal exertion. Vitals/I&O/Wt Last Vital Signs Temp 97.8 F 02/04/20 20:00 Pulse 125 H 02/05/20 12:16 Resp 30 H 02/05/20 10:00 BP 113/63 02/05/20 10:00 Pulse Ox 97 02/05/20 12:16 02/04/20 02/05/20 02/05/20 22:59 06:59 14:59 Intake Total 200 / 200 1100 / 1300 100 / 100 Output Total 250 / 250 400 / 650 Balance -50 / -50 700 / 650 100 / 100 Weight last 48 hrs Weight 68.039 kg Physical Exam Const: COMMON NORMALS: oriented x3 NUTRITIONAL APPEARANCE: cachectic OTHER: NC HENMT: COMMON NORMALS: oropharynx normal Neck/C-Spine: COMMON NORMALS: no JVD Chest: OTHER: Barrel chest Resp: COMMON NORMALS: normal respiratory effort AUSCULTATION: breath sounds absent Cardio: COMMON NORMALS: no JVD, regular rhythm, S1 normal heart sound, S2 normal heart sound and no murmurs RHYTHM: regular rhythm HEART SOUNDS: S1 normal and S2 normal GI: COMMON NORMALS: normal to inspection, nondistended, normoactive bowel sounds, soft to palpation and non-tender PALPATION: Yes soft Extremity: COMMON NORMALS: no joint enlargement GENERAL: Yes edema (4+ bilateral lower extremities below the knee) Neuro: COMMON NORMALS: oriented x3 and moves all extremities Skin: COMMON NORMALS: no rashes or lesions noted GENERAL SKIN EXAM: no rashes or lesions noted LESIONS: lesion noted (Right elbow about 4 mm lesion, covered by dressing, minimal rim of surrounding erythema, minimal serous drainage. Lesion on the right buttock, although could not visualize during the history as he became uncomfortable. Reported chronic lesion on the left buttock.) Data : 02/05/20 04:54 02/05/20 04:54 Micro: Microbiology 02/04/20 19:00 MRSA Culture - Final Nose 02/04/20 11:55 Blood Culture - Preliminary Blood Gram positive cocci 02/04/20 12:02 Blood Culture - Preliminary Blood NEGATIVE TO DATE 02/04/20 16:00 Gram Stain - Final Elbow - 20 Days Old A&P Assessment and plan (1) COPD exacerbation: Initially improving this morning, down to nasal cannula 4 L which is his baseline, however, with very limited reserve. Very dyspneic with minimal exertion. In the afternoon had to be placed back on BiPAP. With decrease in hemoglobin IV steroid held for now. Discussed with pulmonology, increase budesonide dose to 1 mg twice daily. As he did from ER he also had ordered IV fluids. Discontinue. We will give dose of Lasix 20 mg once. Severe exacerbation of COPD with cough, purulent phlegm, dyspnea, requiring by support. Reports that his home health aides last week appeared sick. Influenza negative, however, empirically will still treat him with oseltamivir. We will continue Levaquin, add Zosyn. MRSA PCR negative. For now continue until elbow culture is back. Concern for high-dose IV steroids due to recent GI bleed possibly from gastritis (versus diverticular), anticoagulated for A. fib. Received steroids on the way here. Budesonide. Continue his other nebs. Collect sputum culture. Status: Acute Code(s): J44.1 - Chronic obstructive pulmonary disease with (acute) exacerbation Additional A&P Information Lower extremity edema: For now elevate extremities. He does not have orthopnea. There is no DVT. I am not suspecting CHF exacerbation. Appears this may be secondary to stasis, poor nutritional status. Stop IVF. Lasix 20 mg. Buttock wound: Reportedly draining purulent, foul-smelling drainage on Sunday. His [id number] because of that start him on Levaquin 500 mg daily given to him by his marketing developer. US with sinus tract from skin and subcutaneous tissue of the right buttock. For now continue dressing changes. Once respiratory status is more stable, would obtain surgical evaluation of the wound Right elbow ulceration: Small amount of serous drainage, more reported in ICU. Culture collected. We will follow-up. Continue dressing changes. Once he improves, due to ulceration being persistent chronic, with some undermining, may need additional assessment by MRI to assess for osteomyelitis. Refer for follow-up with wound care clinic. For now continue vancomycin. 11/29 bottles gram-positive coccus in blood: Given his wounds will repeat blood c ulture. Follow results. Mild troponin elevation: Suspected secondary to acute respiratory failure with hypoxia. No chest pain. Recent GI bleed Chronic anticoagulation Atrial fibrillation: Continue metoprolol Chronic steroid Osteoporosis BPH Attestations Medical Necessity Statement*: Continue admission for assessment management of acute respiratory failure with hypoxia, severe COPD exacerbation, with recent blood loss anemia.. Coding Level of Care Code Acute Bicycle Messenger for Corrie Nicholas Diagnoses COPD exacerbation J44.1
--- NOTE | 2020-02-05 12:34 | PC.CHAP ---
Pastoral Care Encounter/Spiritual Assessment Type of Contact [] Declined dental laboratory manager visit [] Patient/Family/Request visit [] Outpatient visit [] Follow-up visit [] Physician referral [] Code/Alert [x] Routine visit [] Staff referral [] Actively dying [] Patient sleeping [] Family support [] [] Out of room [] Palliative care [] [] Receiving care in room [] Pre-surgical visit [] Trauma [] Long length of stay [x] ICU visit [] Other: Relational/Emotional Strength [x] Patient feels connected with others/family/visitors/staff [] Distress [] Loneliness/isolation [] Abandonment Spirituality of Patient x] Person of Maria Luz [] Attends Religious of their Maria Luz [] Believes in Prayer [] Reads Bible or Gnosticism materials [] There are Spiritual issues to be addressed Churn Drill Operator Interventions [x] Prayer [] Active listening [] Non-anxious presence [] Spiritual/emotional support [] Crisis/trauma care [] Spiritual counseling [] Bereavement support [] Provided bereavement packet [] Provided Bible/devotional materials [] Provided toy/stuffed animal, coloring book to patient or family member [] Provided Communion [] Anointing/[place] [] Salvation [] Completed spiritual assessment [] Other: Impact on Illness or Injury [] Angry [] Fearful [] Anxious [] Often cries [] Exhaustion [] Unable to work [] Unable to attend holiness [] Unable to walk/stand [] Unable to read [] Unable to drive [] Unable to eat/drink [] Unable to sleep [] Unable to be with family [] Patient intubated [x] Other: Summary Time spent with patient 4 minutes
[2020-02-05] MEDS: FUROsemide 10 mg/mL SDV 2mL 20 MG IVP (13:40)
[2020-02-05] MEDS: morphine 4 mg/mL SDV 1 mL 2 MG IVP (14:07)
[2020-02-05] MEDS: metoprolol tartrate 1 mg/1 mL SDV 5 mL 5 MG IV (14:08)
[2020-02-05 14:18] LABS: ABG PCO2 86.3 mmHg (35-45); ABG PH Result 7.19 (7.35-7.45); Alveolar-Arterial Oxygen Gradi 205.1 mmHg (5-10); Arterial Blood Gas Hematocrit 30.4 % (42-52); Base Excess ABG 2.9 mmol/L (-2.0-2.0); Blood Gas Sample Site Brachial, left; Blood Gas Sample Type Arterial; Carboxyhemoglobin 0.9 %THgb (0.4-20.1); HCO3 ABG 32.8 mmol/L (22-26); HGB O2 Sat 96.2 % (95-100); Ionized Calcium Level - ABG 1.3 mmol/L (1.1-1.4); Methemoglobin 0.4 % (0.4-1.5); Oxygen Device BIPAP; Oxygen Saturation ABG 97.5; Potassium Level - ABG 4.2 mmol/L (3.5-5.0); Total Hemoglobin 9.9 g/dL (14-18)
--- NOTE | 2020-02-05 14:58 | XR_ITS ---
WS: [id number] Portable AP upright chest, 02/05/2020, 1529 hours Clinical Data: et tube placement Comparison: Portable chest, 02/04/2020. Findings: Endotracheal tube is only 1.8 cm above the jessica and could be retreated 4 centimeters. Elio ogastric tube has been inserted and appears to curl within the stomach. The patient is rotated. The h eart is normal in size. The diaphragms are flattened. Bilateral upper lobe bullous emphysema is prese nt. Midline sternotomy sutures are noted. Monitor leads are on the chest wall. No pneumonia or pneumo thorax is seen. XR/XR chest 1V portable [id number] Impression: 1. Endotracheal tube just above the jessica and could be retreated approximately 4 cm. 2. Severe hyperinflation and bullous emphysema. 3. Nasogastric tube appears to be curled in the stomach.
[2020-02-05] MEDS: fentaNYL 50 mcg/mL INJ 2mL IVP (15:17)
[2020-02-05] MEDS: midazolam 1 mg/mL INJ 2 mL 4 MG (15:18)
[2020-02-05] MEDS: propofol 1,000 MG/100 ML INJ 4.1 MG IV (15:22)
[2020-02-05 15:44] LABS: ABG PCO2 58.1 mmHg (35-45); ABG PH Result 7.34 (7.35-7.45); Alveolar-Arterial Oxygen Gradi 242.3 mmHg (5-10); Arterial Blood Gas Hematocrit 28.5 % (42-52); Base Excess ABG 4.3 mmol/L (-2.0-2.0); Blood Gas Sample Site Brachial, left; Blood Gas Sample Type Arterial; Blood Gas Tidal Volume 0.45; HCO3 ABG 31.1 mmol/L (22-26); HGB O2 Sat 97.1 % (95-100); Ionized Calcium Level - ABG 1.2 mmol/L (1.1-1.4); Methemoglobin 0.4 % (0.4-1.5); Oxygen Device VENT; Oxygen Saturation ABG 98.5; Potassium Level - ABG 4.2 mmol/L (3.5-5.0); Total Hemoglobin 9.3 g/dL (14-18)
[2020-02-05] MEDS: levofloxacin-dextrose 5 % 750 MG/150 ML PREMIX 100 MG IV (15:48)
--- NOTE | 2020-02-05 16:00 | PC.NURSE ---
!430 Pt stating he is not going to make it. On BiPa. Accessory muscle , splinting and labore breathing, Dr Rand notified. Orders receded. 1440 Pt requesting to see physician, Pt still splinting and accessory muscle use. Crackles noted in lung bases, but overall very poor air movement noted in lung sounds. Pt very anxious, requesting nurse to stay at his side.. Dr Rand notified, orders received and administered. 1445 Pt still very anxious, work of breathing very hard. Pt diaphoretic., Heart rate increasing and PVCs starting,. Dr Rand notified of heart rate and possible going into a-fib and high levels of anxiety and work of breathing. 1450 Dr Gamez here to see pt. ABGs ordered. Metoprolol IV for the heart rate and Morphine for discomfort ordered. Both meds given. 1455 ABGs back, Dr Gamez notified by RT. Prepare to intubate orders received 1500: Etomidate, Fentanyl and versed admin. Pt intubated. 1510 Pt hypotensive. Levophed gtt started. OG gastric tube inserted. Auscultated palcement. 1530: Propofol and fentanyl gtts started. Dennis placed , hand hygiene and sterile technique observed. Soft restraints started, as pt grabbed for ETT. 1535 Xray done 1550 Son, Mauricio, notified of events via telephone.
--- NOTE | 2020-02-05 18:50 | PM.ACPR ---
Procedure/Consent Time out: Time Out Performed: No Consent: Consent for Procedure: Emergency procedure Procedure Narrative: Name of the procedure: Endotracheal intubation. Medication: Versed, fentanyl, etomidate Indication: Acute on chronic hypercapnic respiratory failure Description of the procedure: The patient was positioned optimally. He was receiving BiPAP therapy with 100% oxygen. After appropriate medication was given the patient was optimally positioned. The laryngoscope was advanced and maneuvered to vocal cords were visible. Under direct visualization the endotracheal tube was inserted through the vocal cords. There was positive color change, fogging, bilateral chest rise, bilateral breath sound and absence of breath sound in the epigastric area. The ET tube was secured at 24 cm at the lips. Complications none: Chest x-ray: Endotracheal tube was 1.8 cm above the jessica and was then repositioned. Acute Procedures Epistaxis Control: Time out performed: No
--- NOTE | 2020-02-05 18:54 | PM.CONSULT ---
Providers/Reason For Consult Consulting Physican/Specialty*: Pulmonary critical care medicine Reason for Consult*: Cute on chronic hypoxic and hypercapnic respiratory failure Attending Physician: Rommel Rand Primary Care Provider: Leatha Alvarez MD History of Present Illness History of Present Illness Mauricio Bah SR is a 79 year old male with severe COPD on 4 L oxygen 24 hours a day and evidence of hypercapnic respiratory failure. The patient also has history of atrial fibrillation with GI bleed and is currently on Eliquis for his atrial fibrillation. The patient yesterday presented to the hospital with worsening shortness of breath and was treated for COPD exacerbation. Given the patient's previous history of GI bleed this morning I decided to go up on his dose of budesonide nebulizer instead of giving him high-dose steroid. The patient did receive 120 mg Solu-Medrol yesterday. Since yesterday the patient was managed on BiPAP. However, today the patient became tachypneic went into A. fib with heart rate in 140s to 150s. The patient was initially given metoprolol to control his heart rate and morphine to help him with his breathing and reduce respiratory rate. The arterial blood gas showed acute on chronic hypercapnic respiratory failure with a pH of 7.19, PCO2 of 86 and PO2 of 109 on 60% oxygen. At that point, I decided to intubate the patient. The patient was intubated uneventfully. Post intubation arterial blood gas showed pH of 7.34, PCO2 of 58.1 and PO2 of 102 on 60% oxygen. Radiology: The patient has profound emphysema and hyperinflation on the chest x-ray. Review of Systems Narrative: Unable to obtain because of clinical condition. Meds/Allergies Home Medications and Allergies Home Medications Medication Instructions Recorded Confirmed Type Eliquis 5 mg PO BID 01/12/20 02/04/20 History Perforomist 2 ml INHALATION BID 01/12/20 02/04/20 History Slow Fe 1 tab PO DAILY 01/12/20 02/04/20 History Spiriva Respimat 2 puff INHALATION DAILY 01/12/20 02/04/20 History budesonide 0.5 mg INHALATION BID 01/12/20 02/04/20 History calcium carbonate [Calcium 600] 600 mg PO DAILY 01/12/20 02/04/20 History cholecalciferol (vitamin D3) 2,000 unit PO BID 01/12/20 02/04/20 History [Vitamin D3] fluticasone propionate 1 spray INTRANASAL BID 01/12/20 02/04/20 History hydroxyzine HCl 10 mg PO QID PRN 01/12/20 02/04/20 History levalbuterol HCl See Rx Instructions .ROUTE .COMPLEX 01/12/20 02/04/20 History loratadine 10 mg PO DAILY 01/12/20 02/04/20 History metoprolol succinate 12.5 mg PO DAILY 01/12/20 02/04/20 History montelukast 10 mg PO BEDTIME 01/12/20 02/04/20 History potassium chloride 10 meq PO DAILY 01/12/20 02/04/20 History prednisone 10 mg PO DAILY 01/12/20 02/04/20 History sertraline 25 mg PO DAILY 01/12/20 02/04/20 History sumatriptan succinate [Imitrex] 0 mg PO .COMPLEX 01/12/20 02/04/20 History tamsulosin 0.4 mg PO DAILY 01/12/20 02/04/20 History furosemide 40 mg PO DAILY PRN #0 tab 01/18/20 02/04/20 Rx omeprazole 40 mg PO BID #60 cap 01/18/20 02/04/20 Rx alendronate 70 mg PO Q7D 02/04/20 02/04/20 History aspirin 81 mg PO DAILY 02/04/20 02/04/20 History levofloxacin [Levaquin] 500 mg PO DAILY 02/04/20 02/04/20 History revefenacin [Yupelri] 175 mcg INHALATION DAILY 02/04/20 02/04/20 History Allergies Allergy/AdvReac Type Severity Reaction Status Date / Time albuterol AdvReac Intermediate Tachycardia Verified 01/12/20 17:09 Penicillins AdvReac Intermediate Tachycardia Verified 01/12/20 17:02 Current Medications Current Medications Generic Name Dose Route Start Last Admin Trade Name Freq PRN Reason Stop Dose Admin Aspirin 81 mg 02/05/20 09:00 02/05/20 09:38 Aspirin Chewable PO 81 mg DAILY DAVID Administration Enoxaparin Sodium 70 mg 02/04/20 16:30 02/05/20 15:48 Lovenox SUBCUT 70 mg Q12H DAVID Administration Levofloxacin/Dextrose 750 mg in 150 mls @ 150 mls/hr 02/04/20 16:08 02/05/20 18:37 Levaquin-D5w IV Infused Q24H DAVID Infusion Protocol Piperacillin Sod/Tazobactam 100 mls @ 25 mls/hr 02/04/20 19:30 02/05/20 15:45 Sod 3.375 gm/ Sodium Chloride IV Infused Q8H DAVID Infusion Protocol Norepinephrine Bitartrate 4 mg 254 mls @ 0 mls/hr 02/05/20 14:30 02/05/20 18:33 / Dextrose IV 20 mcg/min .Q0M DAVID 76.2 mls/hr Administration Protocol Per Protocol Propofol 1,000 mg in 100 mls @ 0 mls/hr 02/05/20 14:30 02/05/20 17:40 Diprivan IV 25 mcg/kg/min .Q0M DAVID 10.2 mls/hr Titration Protocol Per Protocol Fentanyl 1,000 mcg/ Sodium 100 mls @ 0 mls/hr 02/05/20 14:45 02/05/20 15:45 Chloride IV 25 mcg/hr .Q0M DAVID 2.5 mls/hr Administration Protocol Per Protocol Ipratropium [place] 0.5 mg 02/04/20 16:08 02/05/20 16:20 Atrovent Neb INHALATION 0.5 mg Q4H.RESPIRATORY DAVID Administration Methylprednisolone Sodium Succinate 30 mg 02/04/20 18:00 02/05/20 04:33 Solu-Medrol IVP 30 mg Q6H DAVID Administration Metoprolol Succinate 12.5 mg 02/05/20 09:00 02/05/20 09:39 Toprol Xl PO 12.5 mg DAILY DAVID Administration Oseltamivir Phosphate 75 mg 02/04/20 18:00 02/05/20 18:40 Tamiflu PO 75 mg BID DAVID Administration Pantoprazole Sodium 40 mg 02/04/20 18:00 02/05/20 18:38 Protonix PO Not Given BID DAVID Sertraline HCl 25 mg 02/05/20 09:00 02/05/20 09:38 Zoloft PO 25 mg DAILY DAVID Administration Tamsulosin HCl 0.4 mg 02/05/20 09:00 02/05/20 09:38 Flomax PO 0.4 mg DAILY DAVID Administration PFSH Acute PFSH: Medical History Advanced COPD Anxiety disorder Atrial fib/flutter, transient BPH (benign prostatic hyperplasia) Chronic anticoagulation Chronic steroid use Depression Hx of migraine headaches Osteoporosis Surgical History H/O pneumonectomy Status post colonoscopy Family History Other CAD (coronary artery disease) Social History Smoking and tobacco status: former smoker Quit status (tobacco): has quit using tobacco Year quit tobacco: 40 ya Alcohol intake: never Household members: other Details: Son and alplzzxd-cl-der Marital status: Current occupational status: retired Vitals/I&O/Wt Last Vital Signs Temp 97.8 F 02/04/20 20:00 Pulse 70 02/05/20 16:23 Resp 12 02/05/20 17:55 BP 99/73 02/05/20 13:00 Pulse Ox 94 02/05/20 16:21 02/05/20 02/05/20 02/05/20 06:59 14:59 22:59 Intake Total 1100 / 1300 1021.67 / 1021.67 513.43 / 1535.10 Output Total 400 / 650 200 / 200 Balance 700 / 650 821.67 / 821.67 513.43 / 1335.10 Weight last 48 hrs Weight 150 lb Physical Exam Narrative: EXAM NARRATIVE: General: The patient is intubated and sedated HEENT: Bilateral constricted pupil Neck: No JVD, no cervical or supraclavicular lymphadenopathy. Respiratory: Inspection: Barrel-shaped chest with healed sternotomy scar Palpation: Minimal chest rise with inspiration Percussion: Bilateral hypertympanic percussion note Auscultation: Reduced breath sound bilaterally, no crackles wheezing or rhonchi Cardiovascular: Tachycardia, distant heart sound, no audible murmur, no peripheral edema Abdomen: Soft, nondistended, positive bowel sound. No palpable organomegaly. Musculoskeletal: No obvious joint deformity Skin: No rash Neuro: Patient is intubated and sedated Data Micro: Micro: Microbiology 02/05/20 15:00 Gram Stain - Final Sputum - Endotrac heal Tube Aspirate 02/05/20 14:33 Blood Culture - Pr eliminary Blood SPECIMEN COLLEC GIANA 02/05/20 14:29 Blood Culture - Pr eliminary Blood SPECIMEN COLLEC GIANA 02/04/20 19:00 MRSA Culture - Fin al Nose 02/04/20 11:55 Blood Culture - Pr eliminary Blood Gram positive c occi 02/04/20 12:02 Blood Culture - Pr eliminary Blood NEGATIVE TO CECIL E 02/04/20 16:00 Gram Stain - Final Elbow - 20 Days O ld Other Data: Other data: I have reviewed the patient's laboratory, microbiologic and radiology data. His endotracheal aspirate Gram stain is only showing rare white blood cells no organisms seen. One blood culture specimen is growing gram-positive cocci I believe this is a contaminant. He does not have any evidence of leukocytosis. A&P Assessment and plan (1) Acute and chronic respiratory failure: This is a patient with chronic hypoxic and hypercapnic respiratory failure with advanced COPD. The patient unfortunately failed BiPAP therapy and developed respiratory failure and respiratory acidosis. The patient was intubated and the post intubation blood gas is optimal. The patient is on volume control ventilation with a respiratory rate of 12 to allow for adequate time for exhalation. Endotracheal aspirate samples not showing any bacteria. Status: Acute Code(s): J96.20 - Acute and chronic respiratory failure, unspecified whether with hypoxia or hypercapnia (2) COPD exacerbation: The patient is currently on Zosyn and Levaquin. There is no evidence of MRSA infection. The patient is also empirically covered with Tamiflu although the flu testing was negative. We will continue with DuoNeb and Pulmicort nebulization at a higher dose. We are holding off steroid for the time being with concerns for gastric erosion, gastritis and GI bleed. The patient has significant risk factors for GI bleed. He is on aspirin, full dose anticoagulation, intubated and with a previous history of bleed. Status: Acute Code(s): J44.1 - Chronic obstructive pulmonary disease with (acute) exacerbation (3) Paroxysmal A-fib: The patient is currently receiving Lovenox. I would recommend switching this to heparin drip without any bolus. The long half-life of enoxaparin might be problematic if the patient starts having GI bleed. Thank you for the consultation I will continue to follow. Status: Acute Code(s): I48.0 - Paroxysmal atrial fibrillation Coding Level of Care Code Acute Maintenance Assistant for [facility] [place] Fwd Diagnoses Acute and chronic respiratory failure J96.20 COPD exacerbation J44.1 Paroxysmal A-fib I48.0 Time Spent (min) 55
[2020-02-05] MEDS: budesonide 0.5 mg/2 mL Neb 1 MG INHALATION (21:21)
[2020-02-06] VITALS (44 sets, daily range): BP systolic 80–151; BP diastolic 55–100; PULSE 77–122; RESP 10–16; TEMP 37.1–37.3; O2SAT 94–100
[2020-02-06] MEDS: propofol 1,000 MG/100 ML INJ 10.2 MG IV ×2 (00:08→09:13)
[2020-02-06] MEDS: ipratropium 0.5 mg/2.5 mL Neb INHALATION ×6 (03:19→23:38)
[2020-02-06] MEDS: piperacillin-tazobactam 3.375 GM in sodium chloride 0.9% (plus) 100 ML IV ×3 (03:45→20:04)
[2020-02-06] MEDS: enoxaparin 80 mg/0.8 mL Syringe 70 MG SUBCUT ×2 (05:01→17:13)
[2020-02-06 05:08] LABS: ABG PCO2 49.5 mmHg (35-45); ABG PH Result 7.39 (7.35-7.45); Arterial Blood Gas Hematocrit 30.9 % (42-52); Base Excess ABG 4.2 mmol/L (-2.0-2.0); Blood Gas Allen Test Pos; Blood Gas Sample Site Radial, right; Blood Gas Sample Type Arterial; Blood Gas Tidal Volume 0.45; Oxygen Device VENT
[2020-02-06] MEDS: tamsulosin 0.4 mg Capsule PO (08:38)
[2020-02-06] MEDS: aspirin 81 mg Chew Tablet PO (08:38)
[2020-02-06] MEDS: oseltamivir phosphate 75 mg Capsule PO ×2 (08:38→17:13)
[2020-02-06] MEDS: sertraline 50 mg Tablet 25 MG PO (08:38)
--- NOTE | 2020-02-06 10:05 | PC.CHAP ---
Pastoral Care Encounter/Spiritual Assessment Type of Contact [] Declined business management consultant visit [] Patient/Family/Request visit [] Outpatient visit [] Follow-up visit [] Physician referral [] Code/Alert [x] Routine visit [] Staff referral [] Actively dying [] Patient sleeping [] Family support [] [] Out of room [] Palliative care [] [x] Receiving care in room [] Pre-surgical visit [] Trauma [] Long length of stay [x] ICU visit [] Other: Relational/Emotional Strength [] Patient feels connected with others/family/visitors/staff [] Distress [] Loneliness/isolation [] Abandonment Spirituality of Patient [] Person of Maria Luz [] Attends Pentecostalism of their [place] [] Believes in Prayer [] Reads Bible or Moravian materials [] There are Spiritual issues to be addressed Mercury Recoverer Interventions [] Prayer [] Active listening [] Non-anxious presence [] Spiritual/emotional support [] Crisis/trauma care [] Spiritual counseling [] Bereavement support [] Provided bereavement packet [] Provided Bible/devotional materials [] Provided toy/stuffed animal, coloring book to patient or family member [] Provided Communion [] Anointing/[place] [] Salvation [x] Completed spiritual assessment [] Other: Impact on Illness or Injury [] Angry [] Fearful [] Anxious [] Often cries [] Exhaustion [] Unable to work [] Unable to attend jehovah's witness [] Unable to walk/stand [] Unable to read [] Unable to drive [] Unable to eat/drink [] Unable to sleep [] Unable to be with family [] Patient intubated [] Other: Summary Time spent with patient
[2020-02-06] MEDS: budesonide 0.5 mg/2 mL Neb 1 MG INHALATION ×2 (10:59→20:10)
[2020-02-06] MEDS: pantoprazole 40 mg SDV IVP ×2 (11:36→22:57)
[2020-02-06] MEDS: levalbuterol 1.25 mg/3 mL Neb INHALATION ×3 (15:05→23:38)
--- NOTE | 2020-02-06 15:05 | PC.NURSE ---
Report given to REMI Cruz. Pt remains o vent. He has rested comfortably, [place] scale 2 all day. He had a bath this am. Right elbow ulcer open to air, as surrounding skin macerated. Consent signed for central line, Dr Jacinto preparing to insert one.
[2020-02-06] MEDS: midazolam 1 mg/mL INJ 2 mL 2 MG (16:27)
--- NOTE | 2020-02-06 16:29 | PC.NURSE ---
This RN in to room to assist with femoral line insertion. Time out performed at 15:27. Dr. Gamez and Dr. Jacinto in room and present during time out. Patient tolerated procedure well. Nurse Pari assuming care of patient at this time.
--- NOTE | 2020-02-06 16:39 | PM.ACPR ---
Procedure/Consent Time out: Time Out Performed: Yes Consent: Consent for Procedure: Consent obtained from other (indicate) Procedure Narrative: Name of the Procedure: Right femoral vein Central venous catheter placement under ultrasound guidance. Indication: Access for norepinephrine infusion Anesthesiia: Lidocaine 1%, 5 ml Description of the procedure: The right femoral vein was identified with the Ultrasound from collapsibility and lack of pulsatility. The site was prepared using sterile technique. The skin and subcuteneous tissue was anesthetized using lidocaine. The introducer needle was advanced under US guidance till flash back was noted. Dark, non pulsatile blood noted. Using seldinger technique the CVC was put in.Blood return was noted in all ports. Catheter was secured with suture and covered with transparent dressing. Complications: None Acute Procedures Epistaxis Control: Time out performed: Yes
--- NOTE | 2020-02-06 16:41 | PM.PN ---
Subjective Subjective: Interval history: The patient was seen and examined today. He continues to stay on mechanical ventilation. His latest blood gas revealed a pH of 7.39, PCO2 of 50 and PO2 of 97 on 45% oxygen. The patient is comfortable with a sedation of fentanyl and propofol. I had a conversation with the patient's family this morning. And we have agreed to give him a chance and see if he can be extubated. The family will try to communicate with him and come up with a plan regarding the CODE STATUS and whether they would want to have a tracheostomy down the line. Medications: Reviewed: Yes Vitals/I&O/Wt Last Vital Signs Temp 99.0 F 02/06/20 01:00 Pulse 78 02/06/20 15:12 Resp 10 L 02/06/20 15:06 BP 95/66 02/06/20 04:00 Pulse Ox 97 02/06/20 15:06 02/06/20 02/06/20 02/06/20 06:59 14:59 22:59 Intake Total 200.255 / 1989.355 692.50 / 692.50 Output Total 200 / 770 Balance 0.255 / 1219.355 692.50 / 692.50 Physical Exam Narrative: EXAM NARRATIVE: General: The patient is intubated and sedated HEENT: Bilateral constricted pupil Neck: No JVD, no cervical or supraclavicular lymphadenopathy. Respiratory: Inspection: Barrel-shaped chest with healed sternotomy scar Palpation: Minimal chest rise with inspiration Percussion: Bilateral hypertympanic percussion note Auscultation: Reduced breath sound bilaterally, no crackles wheezing or rhonchi Cardiovascular: Tachycardia, distant heart sound, no audible murmur, no peripheral edema Abdomen: Soft, nondistended, positive bowel sound. No palpable organomegaly. Musculoskeletal: No obvious joint deformity Skin: No rash Neuro: Patient is intubated and sedated Urinary Catheter Management^: Dennis: Cath Placed During This Visit: yes Reason for Continuing Indwelling Catheter: Accurate Measurement of Urinary Output in Critically Ill Patients Urinary Catheter Date of Insertion: 02/05/20 Urinary Catheter Time of Insertion: 15:35 Data : 02/05/20 04:54 02/05/20 04:54 Micro: Microbiology 02/05/20 14:33 Blood Culture - Preliminary Blood NEGATIVE TO DATE 02/05/20 14:29 Blood Culture - Preliminary Blood NEGATIVE TO DATE 02/04/20 11:55 Blood Culture - Preliminary Blood Coagulase negativ staphylococc 02/04/20 16:00 Anaerobic Culture - Preliminary Elbow - #1 02/04/20 16:00 Gram Stain - Final Elbow - 20 Days Old Wound Culture - Preliminary 02/05/20 15:00 Gram Stain - Final Sputum - Endotracheal Tube Aspirate 02/04/20 19:00 MRSA Culture - Final Nose 02/04/20 12:02 Blood Culture - Preliminary Blood NEGATIVE TO DATE Other data: The patient has no evidence of leukocytosis. He is hypercapnic. 1 of the blood cultures positive for fungus negative staph which is most likely contaminant rest of the cultures are negative. Nasal MRSA is negative. A&P Assessment and plan (1) Acute and chronic respiratory failure: The patient seems to be doing well on the current ventilator setting. Tomorrow we will put the patient on pressure support ventilation. He might be ready for extubation tomorrow. Status: Acute Code(s): J96.20 - Acute and chronic respiratory failure, unspecified whether with hypoxia or hypercapnia (2) COPD exacerbation: The patient is currently on Zosyn and Levaquin. There is no evidence of MRSA infection. The patient is also empirically covered with Tamiflu although the flu testing was negative. We will continue with DuoNeb and Pulmicort nebulization at a higher dose. We are holding off steroid for the time being with concerns for gastric erosion, gastritis and GI bleed. The patient has significant risk factors for GI bleed. He is on aspirin, full dose anticoagulation, intubated and with a previous history of bleed. Status: Acute Code(s): J44.1 - Chronic obstructive pulmonary disease with (acute) exacerbation (3) Paroxysmal A-fib: The patient is on Lovenox If the patient has significant RVR he can get amiodarone. Status: Acute Code(s): I48.0 - Paroxysmal atrial fibrillation (4) Shock: The patient is on Levophed for vasopressor shock. This is likely secondary to the medication. The patient does not have any significant evidence of sepsis. We will restart him on D5 half NS for total of 1 L The plan will be to have a discussion with the family and make a decision before extubating him. If the plan is to not reintubate him if he fails I would extubate him to BiPAP and see how he does. And can be extubated on Precedex which will likely to calm him down and not cause tachypnea mediated hyperinflation and air trapping. Status: Acute Code(s): R57.9 - Shock, unspecified Attestations Medical Necessity Statement*: Will defer to the primary team Coding Level of Care Code Acute Licensed Bondsman for [facility] Diagnoses Acute and chronic respiratory failure J96.20 COPD exacerbation J44.1 Paroxysmal A-fib I48.0 Shock R57.9 Time Spent (min) 32
[2020-02-06] MEDS: levofloxacin-dextrose 5 % 750 MG/150 ML PREMIX 100 MG IV (17:12)
[2020-02-06] MEDS: dextrose 5%-sod chloride 0.45% 1,000 ML 75 ML IV (17:12)
--- NOTE | 2020-02-06 19:10 | P.PN_ITS ---
Subjective Subjective: Interval history: seen and examined earlier this morning. 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, 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 Urinary Catheter Management^: Dennis: Cath Placed During This Visit: yes Reason for Continuing Indwelling Catheter: Accurate Measurement of Urinary Output in Critically Ill Patients Urinary Catheter Date of Insertion: 02/05/20 Urinary Catheter Time of Insertion: 15:35 Data : 02/08/20 03:42 02/08/20 03:42 Micro: Microbiology 02/05/20 14:33 Blood Culture - Preliminary Blood NEGATIVE TO DATE 02/05/20 14:29 Blood Culture - Preliminary Blood NEGATIVE TO DATE 02/04/20 11:55 Blood Culture - Preliminary Blood Coagulase negativ staphylococc 02/04/20 16:00 Anaerobic Culture - Preliminary Elbow - #1 02/04/20 16:00 Gram Stain - Final Elbow - 20 Days Old Wound Culture - Preliminary 02/05/20 15:00 Gram Stain - Final Sputum - Endotracheal Tube Aspirate A&P Assessment and plan (1) COPD exacerbation: Status: Acute Code(s): J44.1 - Chronic obstructive pulmonary disease with (acute) exacerbation Additional A&P Information Lower extremity edema: Appears to be chronic per reported history Buttock wound: US with sinus tract from skin and subcutaneous tissue of the right buttock. For now continue dressing changes. Right elbow ulceration: Small amount of serous drainage, more reported in ICU. Continue dressing changes. If he improves, due to ulceration being persistent chronic, with some undermining, may need additional outpatient assessment by MRI to assess for osteomyelitis. Refer for follow-up with wound care clinic. / bottles gram-positive coccus in blood: likely to be contaminant, not seen on subsequent cultures Mild troponin elevation: Suspected secondary to acute respiratory failure with hypoxia. Recent GI bleed Chronic anticoagulation currently on hold due to recent GI bleed Atrial fibrillation: Continue metoprolol Chronic steroid Osteoporosis BPH Attestations Medical Necessity Statement*: close monitoring of respiratory status Coding Level of Care Code Acute Environmental Educator for [facility] Diagnoses COPD exacerbation J44.1
[2020-02-06] MEDS: propofol 1,000 MG/100 ML INJ 8.2 MG IV (19:56)
[2020-02-06] MEDS: midodrine 5 mg TABLET PO (20:35)
[2020-02-06] MEDS: norepinephrine 8 MG in dextrose 5 % 500 ML 61 MG IV (21:07)
[2020-02-07] VITALS (73 sets, daily range): BP systolic 78–141; BP diastolic 47–93; PULSE 80–125; RESP 8–17; TEMP 36.7–37.4; O2SAT 93–100
[2020-02-07] MEDS: ipratropium 0.5 mg/2.5 mL Neb INHALATION ×6 (03:37→23:30)
[2020-02-07] MEDS: levalbuterol 1.25 mg/3 mL Neb INHALATION ×6 (03:37→23:30)
--- NOTE | 2020-02-07 03:44 | PC.NURSE ---
Urine sample obtained from gomze catheter and sent to lab . Ted KHALIL
[2020-02-07] MEDS: piperacillin-tazobactam 3.375 GM in sodium chloride 0.9% (plus) 100 ML IV ×3 (04:00→18:50)
[2020-02-07] MEDS: enoxaparin 80 mg/0.8 mL Syringe 70 MG SUBCUT ×2 (04:06→15:59)
[2020-02-07 04:41] LABS: ABG PCO2 46.9 mmHg (35-45); ABG PH Result 7.39 (7.35-7.45); Arterial Blood Gas Hematocrit 28.4 % (42-52); Base Excess ABG 3.2 mmol/L (-2.0-2.0); Blood Gas Sample Site Brachial, right; Blood Gas Sample Type Arterial; Blood Gas Tidal Volume 0.45; HCO3 ABG 28.6 mmol/L (22-26); Oxygen Device VENT; PO2 ABG 68.5 mmHg (80.0-100.0)
[2020-02-07 04:48] LABS: Add Urine Culture? Yes; Bacteria Urine 1+; Bilirubin Urine Neg (NEGATIVE); Blood Urine 3+ (Negative); Glucose Urine UA Norm (Normal); Ketones Urine Negative (Negative); Leukocyte Esterase Urine Negative (Negative); Nitrate Urine Negative (Negative); Protein Urine Trace (Negative); RBC Urine >100 /hpf (0-2); Specific Gravity, Urine 1.015 (1.005-1.030); Squamous Epithelial Cell Urine 0-4 (0-5); Urine Appearance Cloudy (CLEAR); Urine Color Yellow (Yellow); Urobilinogen Urine Norm (Negative); pH Urine 5 (5-7)
[2020-02-07 04:55] LABS: Alanine Aminotransferase 71 U/L (0-41); Alkaline Phosphatase 35 IU/L (40-130); Anion Gap 9.6 (5-19); Aspartate Amino Transferase 60 U/L (0-40); Blood Urea Nitrogen 25 mg/dL (8-23); Calcium 8.5 mg/dL (8.5-10.5); Carbon Dioxide 32 mmol/L (22-29); Chloride 96 mmol/L (98-107); Globulin 2.6 g/dL (1.3-4.6); Glucose 140 mg/dL (65-115); Osmolality Calculated 277 mOsm/kg (285-295); Potassium 3.6 mmol/L (3.5-5.1); Sodium 134 mmol/L (136-145); Total Bilirubin 0.3 mg/dL (0.15-1.2); Total Protein 5.6 g/dL (6.6-8.7)
[2020-02-07] MEDS: propofol 1,000 MG/100 ML INJ 10.2 MG IV (05:46)
[2020-02-07 05:51] LABS: Basophils % 0.4 %; Eosinophils % 0.1 %; Hematocrit 29.5 % (42.0-52.0); Hemoglobin 8.9 g/dL (11.7-16.6); Lymphocytes # 0.5 10^3/uL (0.8-4.8); Lymphocytes % 7.4 %; Mean Corpuscular HGB Conc 30.2 g/dL (30.0-36.0); Mean Corpuscular Hemoglobin 28.8 pg (28.0-34.0); Mean Corpuscular Volume 95.5 fL (80-94); Mean Platelet Volume 9.4 fL (7.4-10.4); Monocytes # 1.1 10^3/uL (0.2-0.9); Monocytes % 15.4 %; Neutrophils % 70.8 %; Nucleated Red Blood Cells % 0.3 %; Platelet Count 241 10^3/cmm (130-400); Positive C 1; Positive M 1; Red Blood Count 3.09 10^6/uL (4.1-5.3); Red Cell Distribution Width 15.7 % (12.1-15.1)
[2020-02-07 06:35] LABS: Slide Review Slide Review Perform
[2020-02-07] MEDS: budesonide 0.5 mg/2 mL Neb 1 MG INHALATION ×2 (08:06→20:07)
[2020-02-07] MEDS: norepinephrine 8 MG in dextrose 5 % 500 ML 30.5 MG IV (08:17)
--- NOTE | 2020-02-07 09:47 | P.PN_ITS ---
Subjective Subjective: Interval history: seen and examined earlier this morning. 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: 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, sedated Urinary Catheter Management^: Dennis: Cath Placed During This Visit: yes Reason for Continuing Indwelling Catheter: Accurate Measurement of Urinary Output in Critically Ill Patients Urinary Catheter Date of Insertion: 02/05/20 Urinary Catheter Time of Insertion: 15:35 Data : 02/08/20 03:42 02/08/20 03:42 Micro: Microbiology 02/04/20 16:00 Anaerobic Culture - Preliminary Elbow - #1 02/05/20 15:00 Gram Stain - Final Sputum - Endotracheal Tube Aspirate Sputum Culture - Preliminary 02/05/20 14:33 Blood Culture - Preliminary Blood NEGATIVE TO DATE 02/05/20 14:29 Blood Culture - Preliminary Blood NEGATIVE TO DATE 02/04/20 11:55 Blood Culture - Preliminary Blood Coagulase negativ staphylococc 02/04/20 16:00 Gram Stain - Final Elbow - 20 Days Old Wound Culture - Preliminary A&P Assessment and plan (1) COPD exacerbation: Status: Acute Code(s): J44.1 - Chronic obstructive pulmonary disease with (acute) exacerbation (2) Shock: Status: Acute Code(s): R57.9 - Shock, unspecified (3) Pneumonia: Status: Acute Code(s): J18.9 - Pneumonia, unspecified organism (4) Acute and chronic respiratory failure: Status: Acute Code(s): J96.20 - Acute and chronic respiratory failure, unspecified whether with hypoxia or hypercapnia (5) GI bleeding: Status: Acute Code(s): K92.2 - Gastrointestinal hemorrhage, unspecified (6) Paroxysmal A-fib: Status: Acute Code(s): I48.0 - Paroxysmal atrial fibrillation (7) Chronic steroid use: Status: Acute Additional A&P Information Shock: 2/2 PNA leading to COPD exacerbation causing Acute on chronic Respiratory failure: The patient is currently on Zosyn and Levaquin. There is no evidence of MRSA infection. The patient is also empirically covered with Tamiflu although the flu testing was negative. Currently Day 5 of treatment. FOr now will continue to finish 7 day treatment. Given h/o sick contacts, case was discussed with photo mask processor line at [facility] today and COVID 19 testing was collected, to be picked up by [facility]. C/w Contact and Droplet precautions for now. We will continue with DuoNeb and Pulmicort nebulization at a higher dose. Wean Levophed keeping mean arterial pressure over 60 mmHg. Attempted to give sedation vacation and trial of spontaneous breathing, limited by poor inspiratory effort with poor tidal volumes and low RR of ~8/min. Additionally would prefer to continue mechanical ventilation until results of COVID testing are back to minimize risk of aerosolization and airborne exposure. Anemia: . Check hemoglobin daily. Protonix 40 mg IV twice daily. Lower extremity edema: Appears to be chronic per reported history. Buttock wound: US with sinus tract from skin and subcutaneous tissue of the right buttock. For now continue dressing changes. Right elbow ulceration: Small amount of serous drainage, more reported in ICU. Continue dressing changes. If he improves, due to ulceration being persistent chronic, with some undermining, may need additional outpatient assessment by MRI to assess for osteomyelitis. Refer for follow-up with wound care clinic. 11/29 bottles gram-positive coccus in blood: likely to be contaminant, not seen on subsequent cultures Atrial fibrillation: Heart rate controlled for now. Holding off on metoprolol as patient is on levo fed. If patient goes for A. fib with RVR with most likely need amiodarone versus digoxin given his renal functions at that time. Full dose Lovenox for anticoagulation. Chronic steroid Osteoporosis BPH Protonix 40 mg IV twice daily for PUD prophylaxis. Full dose Lovenox will work for anticoagulation as well. DNR/DNI. 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
[2020-02-07] MEDS: tamsulosin 0.4 mg Capsule PO (10:28)
[2020-02-07] MEDS: midodrine 5 mg TABLET PO ×3 (10:28→21:36)
[2020-02-07] MEDS: pantoprazole 40 mg SDV IVP ×2 (10:28→21:37)
[2020-02-07] MEDS: aspirin 81 mg Chew Tablet PO (10:28)
[2020-02-07] MEDS: oseltamivir phosphate 75 mg Capsule PO ×2 (10:28→18:52)
[2020-02-07] MEDS: FUROsemide 10 mg/mL SDV 4mL 40 MG IVP (10:28)
--- NOTE | 2020-02-07 10:58 | PC.SOCIAL ---
Pg 2 IMM Provided pt Pg 2 IMM & placed the copy from admission on Pt's bedside table. Family not at side. Will update son when he arrives. Signed, dated, & timed a copy & placed in chart.
[2020-02-07] MEDS: levofloxacin-dextrose 5 % 750 MG/150 ML PREMIX 150 MG IV (16:00)
[2020-02-07] MEDS: norepinephrine 8 MG in dextrose 5 % 500 ML 45.7 MG IV (21:36)
[2020-02-08] VITALS (44 sets, daily range): BP systolic 94–145; BP diastolic 63–89; PULSE 74–120; RESP 12–18; TEMP 36.6–37.6; O2SAT 92–99
[2020-02-08] MEDS: ipratropium 0.5 mg/2.5 mL Neb INHALATION ×5 (03:46→19:45)
[2020-02-08] MEDS: levalbuterol 1.25 mg/3 mL Neb INHALATION ×6 (03:46→23:37)
[2020-02-08] MEDS: piperacillin-tazobactam 3.375 GM in sodium chloride 0.9% (plus) 100 ML IV ×3 (03:53→20:57)
[2020-02-08] MEDS: enoxaparin 80 mg/0.8 mL Syringe 70 MG SUBCUT ×2 (03:54→17:35)
[2020-02-08 04:26] LABS: Basophils % 0.4 %; Hematocrit 28.6 % (42.0-52.0); Hemoglobin 8.5 g/dL (11.7-16.6); Lymphocytes # 0.7 10^3/uL (0.8-4.8); Lymphocytes % 10.3 %; Mean Corpuscular HGB Conc 29.7 g/dL (30.0-36.0); Mean Corpuscular Hemoglobin 27.9 pg (28.0-34.0); Mean Corpuscular Volume 93.8 fL (80-94); Mean Platelet Volume 9.6 fL (7.4-10.4); Monocytes # 0.9 10^3/uL (0.2-0.9); Monocytes % 13.3 %; Neutrophils % 70.5 %; Nucleated Red Blood Cells % 0 %; Platelet Count 238 10^3/cmm (130-400); Red Blood Count 3.05 10^6/uL (4.1-5.3); Red Cell Distribution Width 15.3 % (12.1-15.1); White Blood Count 7.1 10^3/uL (4.0-10.0)
[2020-02-08 04:42] LABS: Alanine Aminotransferase 67 U/L (0-41); Alkaline Phosphatase 36 IU/L (40-130); Anion Gap 15.3 (5-19); Aspartate Amino Transferase 52 U/L (0-40); Blood Urea Nitrogen 23 mg/dL (8-23); Calcium 8.5 mg/dL (8.5-10.5); Carbon Dioxide 29 mmol/L (22-29); Chloride 92 mmol/L (98-107); Globulin 2.4 g/dL (1.3-4.6); Glucose 125 mg/dL (65-115); Osmolality Calculated 274 mOsm/kg (285-295); Potassium 3.3 mmol/L (3.5-5.1); Sodium 133 mmol/L (136-145); Total Bilirubin 0.4 mg/dL (0.15-1.2); Total Protein 5.4 g/dL (6.6-8.7)
[2020-02-08 05:04] LABS: Slide Review Slide Review Perform
[2020-02-08 05:04] LABS: ABG PH Result 7.45 (7.35-7.45); Arterial Blood Gas Hematocrit 27.6 % (42-52); Base Excess ABG 5.6 mmol/L (-2.0-2.0); Blood Gas Sample Site Brachial, right; Blood Gas Sample Type Arterial; Blood Gas Tidal Volume 0.45; HCO3 ABG 30.1 mmol/L (22-26); Oxygen Device VENT; PO2 ABG 96.1 mmHg (80.0-100.0)
--- NOTE | 2020-02-08 05:22 | XRR_ITS ---
PROCEDURE INFORMATION: Exam: XR Chest, 1 View Exam date and time: 02/08/2020 6:02 AM Age: 79 years old Clinical indication: Device placement; Ett placement (vent status); Shortness of breath; Patient HX: SOB - et tube in place; Additional info: Intubated TECHNIQUE: Imaging protocol: XR of the chest Views: 1 view. COMPARISON: CR XR chest 1V portable [id number] 02/05/2020 3:19 PM FINDINGS: Tubes, catheters and devices: The endotracheal tube is above the level of the jessica. Nasogastric tube coiled within the stomach Lungs: Severe emphysema with destruction of much of the lung parenchyma particularly within the upper lobes right greater than left. Pleural space: Unremarkable. No pleural effusion. No pneumothorax. Heart/Mediastinum: Unremarkable. No cardiomegaly. Bones/joints: Unremarkable. XR/XR chest 1V portable [id number] IMPRESSION: Severe emphysema with destruction of much of the lung parenchyma particularly within the upper lobes right greater than left. Interstitial prominence within the lung bases. Possibly fibrotic. Follow-up.
[2020-02-08] MEDS: budesonide 0.5 mg/2 mL Neb 1 MG INHALATION ×2 (08:06→22:22)
[2020-02-08] MEDS: aspirin 81 mg Chew Tablet PO (08:39)
[2020-02-08] MEDS: tamsulosin 0.4 mg Capsule PO (08:39)
[2020-02-08] MEDS: midodrine 5 mg TABLET PO ×3 (08:39→20:58)
[2020-02-08] MEDS: oseltamivir phosphate 75 mg Capsule PO ×2 (08:39→17:36)
[2020-02-08] MEDS: pantoprazole 40 mg SDV IVP ×2 (10:15→23:15)
[2020-02-08] MEDS: norepinephrine 8 MG in dextrose 5 % 500 ML 38.1 MG IV (10:15)
--- NOTE | 2020-02-08 12:08 | P.PN_ITS ---
Subjective Subjective: Interval history: No acute events overnight. Patient remains intubated. On examination he continues to remain on pressor. He is on levo fed of 12 but his mean arterial pressures have been over 80 mmHg in last 12 hours. On examination today morning he is on ventilator with PEEP of 8 tidal volume of 450 respiratory rate of 17. Labs and ABG noted. Chest x-ray noted. On confirmation from the lab his COVID 19 sample if still lying in the lab and would be going to the state later in the day today for the test to be done tomorrow. Patient continues to remain on both contact and droplet isolation precautions. Medications: Reviewed: Yes Vitals/I&O/Wt Last Vital Signs Temp 99.3 F 02/08/20 08:16 Pulse 88 02/08/20 11:27 Resp 14 02/08/20 11:21 BP 139/89 02/08/20 08:00 Pulse Ox 95 02/08/20 11:21 02/07/20 02/08/20 02/08/20 22:59 06:59 14:59 Intake Total 810.146 / 1481.295 405.230 / 1886.525 288.19 / 288.19 Output Total 1050 / 1050 250 / 1300 Balance -239.854 / 431.295 155.230 / 586.525 288.19 / 288.19 Physical Exam Narrative: EXAM NARRATIVE: General: Sedated HEENT: PERRLA, pupils bilaterally equal and reactive Chest: Bronchial breath sounds, b/l coarse crepts, L> R, equal good air entry bilaterally CVS: S1-S2 regular, no murmurs, no tachycardia, no gallops, no rubs Abdomen: Soft, nontender, no organomegaly, bowel sounds present Neuro: No focal deficits, no facial deformity, AO x3, power 5/5 in all limbs Urinary Catheter Management^: Dennis: Cath Placed During This Visit: yes Reason for Continuing Indwelling Catheter: Accurate Measurement of Urinary Output in Critically Ill Patients Urinary Catheter Date of Insertion: 02/05/20 Urinary Catheter Time of Insertion: 15:35 Data : 02/08/20 03:42 02/08/20 03:42 Micro: Microbiology 02/07/20 03:40 Urine Culture - Preliminary Urine,Clean Catch 02/04/20 16:00 Anaerobic Culture - Preliminary Elbow - #1 02/04/20 16:00 Gram Stain - Final Elbow - 20 Days Old Wound Culture - Preliminary 02/05/20 15:00 Gram Stain - Final Sputum - Endotracheal Tube Aspirate Sputum Culture - Final 02/04/20 11:55 Blood Culture - Preliminary Blood Coagulase negativ staphylococc A&P Assessment and plan (1) Shock: Status: Acute Code(s): R57.9 - Shock, unspecified (2) Pneumonia: Status: Acute Code(s): J18.9 - Pneumonia, unspecified organism (3) Acute and chronic respiratory failure: Status: Acute Code(s): J96.20 - Acute and chronic respiratory failure, unspecified whether with hypoxia or hypercapnia (4) COPD exacerbation: Status: Acute Code(s): J44.1 - Chronic obstructive pulmonary disease with (acute) exacerbation (5) GI bleeding: Status: Acute Code(s): K92.2 - Gastrointestinal hemorrhage, unspecified (6) Paroxysmal A-fib: Status: Acute Code(s): I48.0 - Paroxysmal atrial fibrillation (7) Chronic steroid use: Status: Acute Additional A&P Information Shock: 2/2 PNA leading to COPD exacerbation causing Acute on chronic Respiratory failure: The patient is currently on Zosyn and Levaquin. There is no evidence of MRSA infection. The patient is also empirically covered with Tamiflu although the flu testing was negative. Currently Day 5 of treatment. FOr now will continue to finish 7 day treatment. Case was discussed with [facility] yesterday and COVID testing was done. Results pending. C/w Contact and Droplet precautions for now. We will continue with DuoNeb and Pulmicort nebulization at a higher dose. Wean Levophed keeping mean arterial pressure over 60 mmHg. Hold off on weaning protocols with ventilator for now as that could cause exposure. Will plan once COVID results are back. Continue sedation with Precedex and fentanyl for now. H/o Adrenal insufficiency: On review of old records patient had low blood pressures which responded well to steroids in the past. As patient continues to require high dose of levo fed while steroids are off we will start him on prednisone 30 mg IV daily from today. Anemia: On last admission patient had EGD which showed gastric erosions which were thought from aspirin, anticoagulation and steroids. For now aspirin anticoagulation has been continued while steroids have been withheld. We will stop aspirin for now and as stated above steroids have been started. Continue with anticoagulation with full dose Lovenox for now. Check hemoglobin daily. Protonix 40 mg IV twice daily. Lower extremity edema: Appears to be chronic per reported history. Buttock wound: US with sinus tract from skin and subcutaneous tissue of the right buttock. For now continue dressing changes. Right elbow ulceration: Small amount of serous drainage, more reported in ICU. Continue dressing changes. If he improves, due to ulceration being persistent chronic, with some undermining, may need additional outpatient assessment by MRI to assess for osteomyelitis. Refer for follow-up with wound care clinic. 11/29 bottles gram-positive coccus in blood: likely to be contaminant, not seen on subsequent cultures Atrial fibrillation: Heart rate controlled for now. Holding off on metoprolol as patient is on levo fed. If patient goes for A. fib with RVR with most likely need amiodarone versus digoxin given his renal functions at that time. Full dose Lovenox for anticoagulation. Chronic steroid Osteoporosis BPH Protonix 40 mg IV twice daily for PUD prophylaxis. Full dose Lovenox will work for anticoagulation as well. DNR/DNI. 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
[2020-02-08 12:56] LABS: NT Pro B Type Natriuretic Pept 402 pg/mL (0-450)
[2020-02-08] MEDS: FUROsemide 10 mg/mL SDV 4mL 40 MG IVP (13:02)
[2020-02-08] MEDS: potassium chloride premix 40 MEQ/100 ML PREMIX 25 MEQ IV ×2 (13:03→15:30)
[2020-02-08] MEDS: levofloxacin-dextrose 5 % 750 MG/150 ML PREMIX 100 MG IV (15:29)
[2020-02-09] VITALS (28 sets, daily range): BP systolic 99–140; BP diastolic 64–95; PULSE 68–121; RESP 12–38; TEMP 37.2–39.2; O2SAT 91–939
[2020-02-09 01:39] LABS: Cortisol Random 18.22 mcg/dL (2.47-19.5)
[2020-02-09] MEDS: norepinephrine 8 MG in dextrose 5 % 500 ML 22.9 MG IV (01:58)
[2020-02-09] MEDS: levalbuterol 1.25 mg/3 mL Neb INHALATION ×5 (03:25→21:27)
[2020-02-09] MEDS: piperacillin-tazobactam 3.375 GM in sodium chloride 0.9% (plus) 100 ML IV ×3 (03:53→19:23)
[2020-02-09] MEDS: enoxaparin 80 mg/0.8 mL Syringe 70 MG SUBCUT ×2 (03:54→15:46)
[2020-02-09 04:10] LABS: Basophils % 0.1 %; Eosinophils % 0.1 %; Hematocrit 28.7 % (42.0-52.0); Hemoglobin 8.6 g/dL (11.7-16.6); Lymphocytes # 0.4 10^3/uL (0.8-4.8); Lymphocytes % 5.4 %; Mean Corpuscular Volume 93.5 fL (80-94); Mean Platelet Volume 9.5 fL (7.4-10.4); Monocytes # 0.7 10^3/uL (0.2-0.9); Monocytes % 10.2 %; Neutrophils # 5.8 10^3/uL (1.8-7.7); Neutrophils % 79.7 %; Nucleated Red Blood Cells % 0 %; Platelet Count 202 10^3/cmm (130-400); Red Blood Count 3.07 10^6/uL (4.1-5.3); Red Cell Distribution Width 15.3 % (12.1-15.1); White Blood Count 7.3 10^3/uL (4.0-10.0)
[2020-02-09 04:34] LABS: Alanine Aminotransferase 53 U/L (0-41); Albumin Level 2.9 g/dL (3.5-5.2); Alkaline Phosphatase 36 IU/L (40-130); Anion Gap 12.9 (5-19); Aspartate Amino Transferase 44 U/L (0-40); Blood Urea Nitrogen 22 mg/dL (8-23); Calcium 8.7 mg/dL (8.5-10.5); Carbon Dioxide 30 mmol/L (22-29); Chloride 94 mmol/L (98-107); Globulin 2.5 g/dL (1.3-4.6); Glucose 128 mg/dL (65-115); Osmolality Calculated 274 mOsm/kg (285-295); Potassium 3.9 mmol/L (3.5-5.1); Sodium 133 mmol/L (136-145); Total Bilirubin 0.4 mg/dL (0.15-1.2); Total Protein 5.4 g/dL (6.6-8.7)
[2020-02-09] MEDS: budesonide 0.5 mg/2 mL Neb 1 MG INHALATION ×2 (08:04→21:28)
[2020-02-09] MEDS: midodrine 5 mg TABLET PO (10:11)
[2020-02-09] MEDS: oseltamivir phosphate 75 mg Capsule PO (10:11)
[2020-02-09] MEDS: aspirin 81 mg Chew Tablet PO (10:12)
[2020-02-09] MEDS: tamsulosin 0.4 mg Capsule PO (10:12)
[2020-02-09] MEDS: pantoprazole 40 mg SDV IVP ×2 (10:12→22:25)
--- NOTE | 2020-02-09 12:33 | P.PN_ITS ---
Subjective Subjective: Interval history: No acute events overnight. Overnight patient has remained intubated. On examination patient is on CMV ventilation and following simple commands, Levophed is at 4 with his mean arterial pressure over 66 mmHg. Patient denies of having any headache, nausea, palpitations and is calm on Precedex of 0.6 and fentanyl 50. T-max in last 24 hours is 100 Fahrenheit. Received a call earlier in the morning from [facility] stating that his COVID 19 testing has been negative. As patient was doing fine on CMV ventilation he was pressure over to pressure support and after 45 minutes of pressure support patient was extubated to BiPAP. Medications: Reviewed: Yes Vitals/I&O/Wt Last Vital Signs Temp 100.0 F H 02/09/20 08:00 Pulse 68 02/09/20 11:24 Resp 16 02/09/20 11:24 BP 99/67 02/09/20 08:00 Pulse Ox 94 02/09/20 11:24 02/08/20 02/09/20 02/09/20 22:59 06:59 14:59 Intake Total 976.475 / 1364.665 402.610 / 1767.275 100 / 100 Output Total 1300 / 1300 500 / 1800 Balance -323.525 / 64.665 -97.390 / -32.725 100 / 100 Physical Exam Narrative: EXAM NARRATIVE: General: Sedated HEENT: PERRLA, pupils bilaterally equal and reactive Chest: Bronchial breath sounds, b/l coarse crepts, L> R, equal good air entry bilaterally CVS: S1-S2 regular, no murmurs, no tachycardia, no gallops, no rubs Abdomen: Soft, nontender, no organomegaly, bowel sounds present Neuro: No focal deficits, no facial deformity, AO x3, power 5/5 in all limbs Urinary Catheter Management^: Dennis: Cath Placed During This Visit: yes Reason for Continuing Indwelling Catheter: Accurate Measurement of Urinary Output in Critically Ill Patients Urinary Catheter Date of Insertion: 02/05/20 Urinary Catheter Time of Insertion: 15:35 Data : 02/09/20 03:34 02/09/20 03:34 Micro: Microbiology 02/04/20 12:02 Blood Culture - Final Blood NO GROWTH AFTER 5 DAYS 02/04/20 16:00 Anaerobic Culture - Preliminary Elbow - #1 02/04/20 16:00 Gram Stain - Final Elbow - 20 Days Old Wound Culture - Preliminary 02/07/20 03:40 Urine Culture - Final Urine,Clean Catch 02/05/20 15:00 Gram Stain - Final Sputum - Endotracheal Tube Aspirate Sputum Culture - Final A&P Assessment and plan (1) COPD exacerbation: Status: Acute Code(s): J44.1 - Chronic obstructive pulmonary disease with (acute) exacerbation (2) Shock: Status: Acute Code(s): R57.9 - Shock, unspecified (3) Pneumonia: Status: Acute Code(s): J18.9 - Pneumonia, unspecified organism (4) Acute and chronic respiratory failure: Status: Acute Code(s): J96.20 - Acute and chronic respiratory failure, unspecified whether with hypoxia or hypercapnia (5) GI bleeding: Status: Acute Code(s): K92.2 - Gastrointestinal hemorrhage, unspecified (6) Paroxysmal A-fib: Status: Acute Code(s): I48.0 - Paroxysmal atrial fibrillation (7) Chronic steroid use: Status: Acute Additional A&P Information Shock: 2/2 PNA leading to COPD exacerbation causing Acute on chronic Respiratory failure: COVID 19 negative. Patient is on Zosyn and Levaquin along with Tamiflu. Day 6 of treatment today. Will complete 7-day course of Tamiflu. Discontinue Levaquin today. Patient extubated to BiPAP. Lasix 40 mg IV stat. Patient is febrile for the first time today and last 4 days. Check procalcitonin. If patient has a fever of more than 101 Fahrenheit we will check blood cultures and start him on vancomycin for possible ventilator associated pneumonia. We will continue with DuoNeb and Pulmicort nebulization at a higher dose. Wean Levophed keeping mean arterial pressure over 60 mmHg. Post extubation we will continue on Precedex to load on his anxiety and can wean down slowly. Start patient on home dose of sertraline. Can also use morphine 1 mg every 4 hours as needed. Fentanyl 50 mcg every 4 hours as needed. Anemia: Hemoglobin stable. Check hemoglobin daily. Protonix 40 mg IV twice daily. Lower extremity edema: Appears to be chronic per reported history. Buttock wound: US with sinus tract from skin and subcutaneous tissue of the right buttock. For now continue dressing changes. Right elbow ulceration: Small amount of serous drainage, more reported in ICU. Continue dressing changes. If he improves, due to ulceration being persistent chronic, with some undermining, may need additional outpatient assessment by MRI to assess for osteomyelitis. Refer for follow-up with wound care clinic. / bottles gram-positive coccus in blood: likely to be contaminant, not seen on subsequent cultures Atrial fibrillation: Heart rate controlled for now. Holding off on metoprolol as patient is on levo fed. If patient goes for A. fib with RVR with most likely need amiodarone versus digoxin given his renal functions at that time. Full dose Lovenox for anticoagulation. Chronic steroid Osteoporosis BPH Protonix 40 mg IV twice daily for PUD prophylaxis. Full dose Lovenox will work for anticoagulation as well. DNR/DNI. 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
--- NOTE | 2020-02-09 12:35 | PC.SOCIAL ---
IMM Not Updated Pg 2 of IMM not updated today. Patient on isolation and intubated. SS to update before d/c.
[2020-02-09] MEDS: FUROsemide 10 mg/mL SDV 4mL 40 MG IVP (12:46)
--- NOTE | 2020-02-09 14:38 | PC.RESP ---
extubated pt extubated and placed on bipap
--- NOTE | 2020-02-09 14:52 | PC.CHAP ---
Pastoral Care Encounter/Spiritual Assessment Type of Contact [] Declined bull gang worker visit [] Patient/Family/Request visit [] Outpatient visit [] Follow-up visit [] Physician referral [] Code/Alert [] Routine visit [] Staff referral [] Actively dying [] Patient sleeping [] Family support [] [] Out of room [] Palliative care [] [] Receiving care in room [] Pre-surgical visit [] Trauma [] Long length of stay [] ICU visit [] Other: Relational/Emotional Strength [] Patient feels connected with others/family/visitors/staff [] Distress [] Loneliness/isolation [] Abandonment Spirituality of Patient [] Person of [place] [] Attends [employer] of their [place] [] Believes in Prayer [] Reads Bible or Nondenominational materials [] There are Spiritual issues to be addressed Paper Gluing Operator Interventions [] Prayer [] Active listening [] Non-anxious presence [] Spiritual/emotional support [] Crisis/trauma care [] Spiritual counseling [] Bereavement support [] Provided bereavement packet [] Provided Bible/devotional materials [] Provided toy/stuffed animal, coloring book to patient or family member [] Provided Communion [] Anointing/[place] [] Salvation [] Completed spiritual assessment [] Other: Impact on Illness or Injury [] Angry [] Fearful [] Anxious [] Often cries [] Exhaustion [] Unable to work [] Unable to attend pentecostal [] Unable to walk/stand [] Unable to read [] Unable to drive [] Unable to eat/drink [] Unable to sleep [] Unable to be with family [] Patient intubated [x] Other: isolation Summary Patient was in isolation at the time of bull gang worker visit. Visit was attempted by Paper Gluing Operatorgrant Rangel. Time spent with patient 3 minutes
[2020-02-09] MEDS: levofloxacin-dextrose 5 % 750 MG/150 ML PREMIX 100 MG IV (15:33)
[2020-02-09] MEDS: fentaNYL 50 mcg/mL INJ 2mL IVP ×2 (16:01→22:28)
[2020-02-09] MEDS: vancomycin 750 MG in sodium chloride 0.9% 250 ML 250 MG IV (16:55)
[2020-02-09 17:06] LABS: Procalcitonin 0.25 ng/mL (0-0.5)
--- NOTE | 2020-02-09 18:52 | PC.NURSE ---
DR SORENSON HERE STATES OK TO TITRATE PRECEDEX UP TO 1.5MCG/KG/HR
--- NOTE | 2020-02-09 19:12 | PC.NURSE ---
Addendum entered by Mike Murdock RN 02/09/20 19:14: Witnessed the waste of 90mL of Fentanyl gtt. Terrance Murdock RN Original Note: FENTANYL DRIP 90ML WASTED WITNESSED BY KAIDEN KHALIL.
[2020-02-09] MEDS: ipratropium 0.5 mg/2.5 mL Neb INHALATION (21:27)
[2020-02-10] VITALS (24 sets, daily range): BP systolic 74–134; BP diastolic 53–91; PULSE 90–125; RESP 19–51; TEMP 37.2–37.4; O2SAT 90–98
[2020-02-10] MEDS: ipratropium 0.5 mg/2.5 mL Neb INHALATION ×6 (01:02→20:03)
[2020-02-10] MEDS: levalbuterol 1.25 mg/3 mL Neb INHALATION ×6 (01:03→20:04)
[2020-02-10] MEDS: piperacillin-tazobactam 3.375 GM in sodium chloride 0.9% (plus) 100 ML IV ×3 (04:16→19:56)
[2020-02-10] MEDS: enoxaparin 80 mg/0.8 mL Syringe 70 MG SUBCUT ×2 (04:16→16:24)
[2020-02-10] MEDS: vancomycin 750 MG in sodium chloride 0.9% 250 ML 250 MG IV ×2 (04:33→18:07)
[2020-02-10] MEDS: budesonide 0.5 mg/2 mL Neb 1 MG INHALATION ×2 (10:04→20:04)
[2020-02-10] MEDS: pantoprazole 40 mg SDV IVP ×2 (11:27→22:37)
[2020-02-10 13:39] LABS: ABG PH Result 7.28 (7.35-7.45); Arterial Blood Gas Hematocrit 29.9 % (42-52); Base Excess ABG 0.2 mmol/L (-2.0-2.0); Blood Gas Allen Test Pos; Blood Gas Sample Site Radial, right; Blood Gas Sample Type Arterial; HCO3 ABG 27.7 mmol/L (22-26); Oxygen Device BIPAP; PO2 ABG 53.4 mmHg (80.0-100.0)
--- NOTE | 2020-02-10 15:13 | PC.SOCIAL ---
IMM Update Pg 2 of IMM Updated, another copy left at bedside.
[2020-02-10 17:06] LABS: Arterial Blood Gas Hematocrit 30.7 % (42-52); Base Excess ABG -2.5 mmol/L (-2.0-2.0); Blood Gas Allen Test Pos; Blood Gas Sample Site Brachial, right; Blood Gas Sample Type Arterial; HCO3 ABG 28.2 mmol/L (22-26); PO2 ABG 90.9 mmHg (80.0-100.0)
[2020-02-10 17:07] LABS: ABG PCO2 87.8 mmHg (35-45); ABG PH Result 7.12 (7.35-7.45)
[2020-02-10 18:00] LABS: Vancomycin Trough 11.7 ug/mL (10-15)
[2020-02-10] MEDS: norepinephrine 8 MG in dextrose 5 % 500 ML 15.2 MG IV (19:55)
[2020-02-10] MEDS: morphine 4 mg/mL SDV 1 mL 2 MG IVP ×2 (20:39→23:51)
--- NOTE | 2020-02-10 21:18 | P.PN_ITS ---
Subjective Subjective: Interval history: No acute events overnight. Patient was extubated yesterday afternoon. Since then patient has remained on the BiPAP ventilation. Today morning on evaluation patient is on BiPAP ventilation saturating 94% with his heart rate 100 bpm on levo fed of 5 with mean arterial pressures over 65 mmHg. On evaluation patient is on BiPAP ventilation but is awake alert and is able to communicate by nodding his head. Patient son is bedside as well during the evaluation. Patient was asked regarding his wishes about CODE STATUS. Patient was also told that in case if he is reintubated chances of him getting extubated are very low. Patient nods stating that he would like to be full code. Patient was asked about the same by his son and patient again noted that he would be full code. Medications: Reviewed: Yes Vitals/I&O/Wt Last Vital Signs Temp 98.9 F 02/10/20 16:00 Pulse 107 H 02/10/20 20:12 Resp 30 H 02/10/20 20:39 BP 84/65 02/10/20 20:00 Pulse Ox 93 02/10/20 20:12 02/10/20 02/10/20 02/10/20 06:59 14:59 22:59 Intake Total 574.840 / 1470.653 204 / 204 553.173 / 757.173 Output Total 200 / 1400 400 / 400 Balance 374.840 / 70.653 204 / 204 153.173 / 357.173 Physical Exam Narrative: EXAM NARRATIVE: General: On bipap, following simple commands, communicating by nodding his head HEENT: PERRLA, pupils bilaterally equal and reactive Chest: Bronchial breath sounds, b/l coarse crepts, L> R, equal good air entry bilaterally CVS: S1-S2 regular, no murmurs, no tachycardia, no gallops, no rubs Abdomen: Soft, nontender, no organomegaly, bowel sounds present Neuro: No focal deficits, no facial deformity, AO x3, moving all the limbs Urinary Catheter Management^: Dennis: Cath Placed During This Visit: yes Reason for Continuing Indwelling Catheter: Accurate Measurement of Urinary Output in Critically Ill Patients Urinary Catheter Date of Insertion: 02/05/20 Urinary Catheter Time of Insertion: 15:35 Data : 02/09/20 03:34 02/09/20 03:34 Micro: Microbiology 02/09/20 17:57 Blood Culture - Preliminary Blood NEGATIVE TO DATE 02/04/20 16:00 Gram Stain - Final Elbow - 20 Days Old Wound Culture - Preliminary 02/09/20 16:33 Blood Culture - Preliminary Blood NEGATIVE TO DATE 02/05/20 14:33 Blood Culture - Final Blood NO GROWTH AFTER 5 DAYS 02/05/20 14:29 Blood Culture - Final Blood NO GROWTH AFTER 5 DAYS 02/04/20 16:00 Anaerobic Culture - Preliminary Elbow - #1 A&P Assessment and plan (1) COPD exacerbation: Status: Acute Code(s): J44.1 - Chronic obstructive pulmonary disease with (acute) exacerbation (2) Shock: Status: Acute Code(s): R57.9 - Shock, unspecified (3) Pneumonia: Status: Acute Code(s): J18.9 - Pneumonia, unspecified organism (4) Acute and chronic respiratory failure: Status: Acute Code(s): J96.20 - Acute and chronic respiratory failure, unspecified whether with hypoxia or hypercapnia (5) GI bleeding: Status: Acute Code(s): K92.2 - Gastrointestinal hemorrhage, unspecified (6) Paroxysmal A-fib: Status: Acute Code(s): I48.0 - Paroxysmal atrial fibrillation (7) Chronic steroid use: Status: Acute Additional A&P Information Shock: 2/2 PNA leading to COPD exacerbation causing Acute on chronic Respiratory failure: COVID 19 negative. Patient is on Zosyn Day 7 along with Tamiflu Day 7. Vanc was started yesterday due to fever for possible VAP. Levoflox d/bautista on 02/08. Stop Tamiflu today. C/w Bipap Ventilation for now. Stat ABG. Will try to wean to hiflow and see how he does. CT chest w/o contrast in AM We will continue with Pulmicort, levoalbuterol and ipratropium nebs Wean Levophed keeping mean arterial pressure over 60 mmHg. Post extubation we will continue on Precedex Fentanyl 50 mcg every 4 hours as needed. Anemia: Hemoglobin stable. Check hemoglobin daily. Protonix 40 mg IV twice daily. Lower extremity edema: Appears to be chronic per reported history. Buttock wound: US with sinus tract from skin and subcutaneous tissue of the right buttock. For now continue dressing changes. Right elbow ulceration: Small amount of serous drainage, more reported in ICU. Continue dressing changes. If he improves, due to ulceration being persistent chronic, with some undermining, may need additional outpatient assessment by MRI to assess for osteomyelitis. Refer for follow-up with wound care clinic. 1/4 bottles gram-positive coccus in blood: likely to be contaminant, not seen on subsequent cultures Atrial fibrillation: Heart rate controlled for now. Holding off on metoprolol as patient is on levo fed. If patient goes for A. fib with RVR with most likely need amiodarone versus digoxin given his renal functions at that time. Full dose Lovenox for anticoagulation. Chronic steroid Osteoporosis BPH Protonix 40 mg IV twice daily for PUD prophylaxis. Full dose Lovenox will work for anticoagulation as well. CODE STATUS: Discussed with patient illustrated above regarding the CODE STATUS. Patient nodded multiple times both to question by the physician and the son at required. CODE STATUS changed to full code. Had in-depth discussion with the son regarding his father's CODE STATUS. Son states his father has been dealing with severe COPD for more than 20 years even though patient's anemia can give him just 5 years to live 15 years ago. He feels the main goals of care should be to make sure that his father is comfortable and does not suffer anymore. Physician explained the son in detail that at present his father is lucid and is able to follow commands and is able to communicate his own wishes and at present we have asked notified nursing multiple times that he would want to be full code even if it means that reintubating him could end up leaving him intubated versus terminal extubation. Son requests to be called before intubation. Son and [id number] are the DPOAE and father is not able to make his own decisions. Attestations Medical Necessity Statement*: Septic shock and severe COPD exacerbation Critical Care Time: Critical Care Time (min): 80 Coding Level of Care Code Acute Metal Spraying Machine Operator for [facility] Fwd Diagnoses COPD exacerbation J44.1 Shock R57.9 Pneumonia J18.9 Acute and chronic respiratory failure J96.20 GI bleeding K92.2 Paroxysmal A-fib I48.0 Chronic steroid use
--- NOTE | 2020-02-10 23:08 | PC.NURSE ---
1944 Patient pulling at bipap and requested to be taken off bipap, respiratory at bedside. Placed on nasal cannula. 2014 SPO2 reading 75%, patient placed back onto bipap, patient unable to lift hands at this time or talk to this RN. Respiratory at bedside. 2044 Son at bedside, updated on events mentioned above. Son stated that he has been discussing with DPOA who wants patient to be comfortable and feels that patient will have very poor quality of life. Son would like patient to be on comfort care. This RN explained what comfort care means and high possibility of patients CO2 increasing on NC. Son verbalized understanding. Will be here tomorrow to discuss with
[2020-02-11] VITALS (36 sets, daily range): BP systolic 72–107; BP diastolic 39–76; PULSE 68–149; RESP 12–22; O2SAT 84–100
[2020-02-11] MEDS: levalbuterol 1.25 mg/3 mL Neb INHALATION ×6 (00:49→20:37)
[2020-02-11] MEDS: ipratropium 0.5 mg/2.5 mL Neb INHALATION ×6 (00:49→20:37)
[2020-02-11] MEDS: piperacillin-tazobactam 3.375 GM in sodium chloride 0.9% (plus) 100 ML IV (03:17)
--- NOTE | 2020-02-11 03:27 | PC.NURSE ---
Patient requests to take off bipap
--- NOTE | 2020-02-11 04:45 | PC.NURSE ---
0420 patient back on nasal cannula
[2020-02-11 04:56] LABS: Basophils % 0.1 %; Hematocrit 32.2 % (42.0-52.0); Hemoglobin 9.3 g/dL (11.7-16.6); Lymphocytes # 0.8 10^3/uL (0.8-4.8); Lymphocytes % 9.8 %; Mean Corpuscular HGB Conc 28.9 g/dL (30.0-36.0); Mean Corpuscular Hemoglobin 28.4 pg (28.0-34.0); Mean Corpuscular Volume 98.5 fL (80-94); Mean Platelet Volume 9.9 fL (7.4-10.4); Monocytes % 11.4 %; Neutrophils # 6.4 10^3/uL (1.8-7.7); Neutrophils % 74.3 %; Nucleated Red Blood Cells # 0.1 /100WBC; Nucleated Red Blood Cells % 0.8 %; Platelet Count 179 10^3/cmm (130-400); Red Blood Count 3.27 10^6/uL (4.1-5.3); Red Cell Distribution Width 15.5 % (12.1-15.1); White Blood Count 8.6 10^3/uL (4.0-10.0)
[2020-02-11] MEDS: vancomycin 750 MG in sodium chloride 0.9% 250 ML 250 MG IV (04:57)
[2020-02-11 05:16] LABS: Alanine Aminotransferase 349 U/L (0-41); Albumin Level 2.9 g/dL (3.5-5.2); Alkaline Phosphatase 37 IU/L (40-130); Anion Gap 14.2 (5-19); Aspartate Amino Transferase 334 U/L (0-40); Blood Urea Nitrogen 61 mg/dL (8-23); Calcium 8.9 mg/dL (8.5-10.5); Carbon Dioxide 31 mmol/L (22-29); Chloride 99 mmol/L (98-107); Globulin 3.1 g/dL (1.3-4.6); Glucose 129 mg/dL (65-115); Osmolality Calculated 291 mOsm/kg (285-295); Potassium 4.2 mmol/L (3.5-5.1); Sodium 140 mmol/L (136-145); Total Bilirubin 0.5 mg/dL (0.15-1.2)
[2020-02-11 05:17] LABS: ABG PCO2 47.3 mmHg (35-45); ABG PH Result 7.35 (7.35-7.45); Alveolar-Arterial Oxygen Gradi 110.8 mmHg (5-10); Arterial Blood Gas Hematocrit 29.4 % (42-52); Base Excess ABG -0.1 mmol/L (-2.0-2.0); Blood Gas Sample Site Brachial, right; Blood Gas Sample Type Arterial; Carboxyhemoglobin 0.8 %THgb (0.4-20.1); HCO3 ABG 25.8 mmol/L (22-26); HGB O2 Sat 97.3 % (95-100); Ionized Calcium Level - ABG 1.1 mmol/L (1.1-1.4); Methemoglobin 0.8 % (0.4-1.5); Oxygen Saturation ABG 98.9; Total Hemoglobin 9.6 g/dL (14-18)
[2020-02-11 05:33] LABS: Slide Review Slide Review Perform
--- NOTE | 2020-02-11 08:00 | CT_ITS ---
WS: [id number] CT CHEST TECHNIQUE: Noncontrast CT of the chest with coronal and sagittal reformatted images. CLINICAL INFORMATION: pna COMPARISON: CT chest September 14, 2019 DLP: 462.[address] scans at [facility] use at least one of these dose optimization techniques: automat ed exposure control; mA and/or kV adjustment per patient size (includes targeted exams where dose is matched to clinical indication); or iterative reconstruction. FINDINGS: Markedly advanced emphysematous changes. Small bilateral pleural effusions with slight atelectasis in the lung bases. No focal pneumonia. Aortic calcification. Coronary calcification. No mediastinal or hilar lymphadenopathy. Adrenal glands are normal. Probable Tiny hepatic cyst or hemangioma within the right hepatic lobe. Air-filled distended stomach in the upper abdomen partially visualized. Thoracic curve convex right. CT/CT chest wo con [id number] IMPRESSION: 1. Advanced chronic emphysematous changes. 2. Small bilateral pleural effusions. Atelectasis in the lung bases. 3. No focal pneumonia. 4. No mediastinal or hilar lymphadenopathy. 5. Air distended stomach in the upper abdomen.
[2020-02-11] MEDS: sodium chloride 0.9% 1,000 ML 100 ML IV ×2 (08:22→18:30)
[2020-02-11] MEDS: budesonide 0.5 mg/2 mL Neb 1 MG INHALATION ×2 (08:24→20:37)
--- NOTE | 2020-02-11 09:14 | PC.SOCIAL ---
IMM Update Pg 2 of IMM given to patient and left at bedside. Original placed in chart.
[2020-02-11] MEDS: pantoprazole 40 mg SDV IVP ×2 (09:59→23:16)
--- NOTE | 2020-02-11 10:23 | PC.NURSE ---
Attempted to administer PO meds. Patient refused. Patient educated on each medication and the importance and continued to refuse. Returned medication to the [facility].
--- NOTE | 2020-02-11 12:53 | PM.PN ---
Subjective Subjective: Interval history: Patient continues to remain on the BiPAP. As soon as patient has taken on BiPAP patient becomes extremely tachypneic. Patient is on levo fed at 6, Precedex at 1. Patient is awake alert oriented and is able to follow simple commands and is able to converse. Patient's son is at bedside. 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 Discussed in detail with the patient that most likely patient would be BiPAP dependent. Discussed goals of care with the patient and son. Son states that he would want his father to be comfortable and that the goals of care though father states he is not ready for comfort measures as of yet. Later during the evening patient was taken of the BiPAP and was put on high flow with his son and [id number] at bedside at that time it was reported by the RN that patient had wished about being on comfort measures. Patient has been poor comfort measures since then. Medications: Reviewed: Yes Vitals/I&O/Wt Last Vital Signs Temp 98.9 F 02/10/20 16:00 Pulse 73 02/11/20 12:00 Resp 15 02/11/20 12:00 BP 92/66 02/11/20 12:00 Pulse Ox 100 02/11/20 12:00 02/10/20 02/11/20 02/11/20 22:59 06:59 14:59 Intake Total 651.546 / 855.546 204 / 1059.546 Output Total 400 / 400 500 / 900 Balance 251.546 / 455.546 -296 / 159.546 Physical Exam Narrative: EXAM NARRATIVE: General: On bipap, following simple commands, communicating by nodding his head HEENT: PERRLA, pupils bilaterally equal and reactive Chest: Bronchial breath sounds, b/l coarse crepts, L> R, equal good air entry bilaterally CVS: S1-S2 regular, no murmurs, no tachycardia, no gallops, no rubs Abdomen: Soft, nontender, no organomegaly, bowel sounds present Neuro: No focal deficits, no facial deformity, AO x3, moving all the limbs Urinary Catheter Management^: Dennis: Cath Placed During This Visit: yes Reason for Continuing Indwelling Catheter: Accurate Measurement of Urinary Output in Critically Ill Patients Urinary Catheter Date of Insertion: 02/05/20 Urinary Catheter Time of Insertion: 15:35 Data : 02/11/20 04:26 02/11/20 04:26 Micro: Microbiology 02/04/20 16:00 Gram Stain - Final Elbow - 20 Days Old Wound Culture - Final 02/04/20 16:00 Anaerobic Culture - Preliminary Elbow - #1 02/09/20 17:57 Blood Culture - Preliminary Blood NEGATIVE TO DATE 02/09/20 16:33 Blood Culture - Preliminary Blood NEGATIVE TO DATE 02/05/20 14:33 Blood Culture - Final Blood NO GROWTH AFTER 5 DAYS 02/05/20 14:29 Blood Culture - Final Blood NO GROWTH AFTER 5 DAYS A&P Assessment and plan (1) COPD exacerbation: Status: Acute Code(s): J44.1 - Chronic obstructive pulmonary disease with (acute) exacerbation (2) Shock: Status: Acute Code(s): R57.9 - Shock, unspecified (3) Pneumonia: Status: Acute Code(s): J18.9 - Pneumonia, unspecified organism (4) Acute and chronic respiratory failure: Status: Acute Code(s): J96.20 - Acute and chronic respiratory failure, unspecified whether with hypoxia or hypercapnia (5) GI bleeding: Status: Acute Code(s): K92.2 - Gastrointestinal hemorrhage, unspecified (6) Paroxysmal A-fib: Status: Acute Code(s): I48.0 - Paroxysmal atrial fibrillation (7) Chronic steroid use: Status: Acute Additional A&P Information CT scan done early in the morning shows no sign of any infiltrate, no consolidation, no fluid overload but is concerning for severe emphysematous disease. As stated above given the CT results and constant BiPAP dependence, worsening renal functions and liver functions which is consistent with multiorgan dysfunction patient and family decided for comfort measures. For no escalation of care asked regards to pressor support. We will try to wean off Levophed keeping mean arterial pressure 65 mmHg. Continue IV fluids at 75 cc/h. We will stop IV antibiotics as patient has already had 7 days of Tamiflu, 8 days of Zosyn and 3 days of vancomycin as BAP has been ruled out with CT scan. Will maintain patient on high flow keeping patient comfortable with morphine 2 mg IV every 2 hours, Ativan 1 mg every 4 hours. Pulmicort, levo albuterol and ipratropium will be continued as before. Continue Protonix IV twice daily, Continue with methylprednisone 30 mg daily. Given history of atrial fibrillation continue with Lovenox at full dose of 1 mg/kg body weight twice daily. No further labs inconsistent with comfort measures. We will do swallow evaluation to see if he can start patient on pleasure feeds. Attestations Medical Necessity Statement*: Severe resp distress 2/2 end stage COPD Time Spent in Patient Care: Greater than 35 minutes (>than 50% of time spent in counselling and/or direct pt care on unit). Coding Level of Care Code Acute Dental Office Assistant for [facility] Diagnoses COPD exacerbation J44.1 Shock R57.9 Pneumonia J18.9 Acute and chronic respiratory failure J96.20 GI bleeding K92.2 Paroxysmal A-fib I48.0 Chronic steroid use
--- NOTE | 2020-02-11 13:03 | PC.SLP ---
The pt is not able to tolerate coming off BiPAP at this time. WHEAT GROWER will follow-up with the pt tomorrow, or when the pt is able.
--- NOTE | 2020-02-11 13:19 | PC.NURSE ---
Dr. Ram at bedside to discuss care with son. Antibiotics on hold at this time.
--- NOTE | 2020-02-11 14:02 | PC.NURSE ---
Patient has refused to turn or be repositioned thus far into shift. Will continue to offer every two hours.
--- NOTE | 2020-02-11 15:10 | PC.NURSE ---
Verbal orders recieved to wean Levophed and Precedex at this time.
[2020-02-11] MEDS: morphine 4 mg/mL SDV 1 mL 2 MG IVP ×2 (15:42→19:40)
[2020-02-11] MEDS: LORazepam 2 mg/mL INJ 1 mL 1 MG IVP (15:43)
[2020-02-11] MEDS: enoxaparin 80 mg/0.8 mL Syringe 70 MG SUBCUT (15:44)
--- NOTE | 2020-02-11 15:56 | PC.NURSE ---
Patient requested to be placed on high flow oxygen. This nurse explained the risk and patient continued to ask. Patient verbalized that he did not want to be put back on the bipap. Patient placed on high flow and will monitor closely.
--- NOTE | 2020-02-11 16:47 | PC.NURSE ---
This nurse at bedside with ,respiratory therapist Iqra, and discussed with family the risk of administering morphine to keep patient comfortable at this time. Family expressed at this time if patients heart was to stop or patient were to quit breathing they did not want any interventions done at this time.
--- NOTE | 2020-02-11 21:33 | PC.NURSE ---
2030 Lengthy discussion with son. Will use [facility] for services. Family states they want patient to be AND with no attempts of intervention. Son does not wish for patient to have life saving attempts.
[2020-02-11] MEDS: norepinephrine 8 MG in dextrose 5 % 500 ML 22.9 MG IV (23:16)
[2020-02-12] VITALS (38 sets, daily range): BP systolic 62–85; BP diastolic 40–67; PULSE 84–150; RESP 12–27; TEMP 36.6; O2SAT 66–100
[2020-02-12] MEDS: ipratropium 0.5 mg/2.5 mL Neb INHALATION ×6 (01:11→20:00)
[2020-02-12] MEDS: levalbuterol 1.25 mg/3 mL Neb INHALATION ×6 (01:11→20:00)
[2020-02-12] MEDS: sodium chloride 0.9% 1,000 ML 75 ML IV ×2 (03:35→16:53)
[2020-02-12] MEDS: morphine 4 mg/mL SDV 1 mL 2 MG IVP ×5 (03:37→17:50)
[2020-02-12] MEDS: budesonide 0.5 mg/2 mL Neb 1 MG INHALATION (08:07)
--- NOTE | 2020-02-12 12:21 | PC.NURSE ---
Per Dr. Ram's orders, patient given ativan and morphine. BiPAP removed and Nasal Cannula applied. Patient's mouth swabbed. Levophed turned off. Family at bedside.
--- NOTE | 2020-02-12 13:26 | PC.NURSE ---
Orders received from Dr. Ram to administer ativan and morpine Q1H PRN for air hunger and agitation.
[2020-02-12] MEDS: LORazepam 2 mg/mL INJ 1 mL 1 MG IVP ×2 (13:33→17:50)
--- NOTE | 2020-02-12 15:30 | P.PN_ITS ---
Subjective Subjective: Interval history: In last 24 hrs pt continues to remain on comfort care. Somehow levophed was increased to 12 last night. On exam today morning resting comfortably in bed, levophed 12, MAP-55mmhg, precedex 1 on bipap. Called son who came with his to bedside and pressor support was stopped. Continues to be comfortable. Medications: Reviewed: Yes Vitals/I&O/Wt Last Vital Signs Temp 97.9 F 02/12/20 08:00 Pulse 115 H 02/12/20 14:00 Resp 14 02/12/20 14:00 BP 81/56 02/12/20 14:00 Pulse Ox 88 L 02/12/20 14:00 02/12/20 02/12/20 02/12/20 06:59 14:59 22:59 Intake Total 908.333 / 2495.000 0 / 0 Output Total 250 / 250 Balance 658.333 / 2245.000 0 / 0 Physical Exam Narrative: EXAM NARRATIVE: General: On bipap, following simple commands, communicating by nodding his head HEENT: PERRLA, pupils bilaterally equal and reactive Chest: Bronchial breath sounds, b/l coarse crepts, L> R, equal good air entry bilaterally CVS: S1-S2 regular, no murmurs, no tachycardia, no gallops, no rubs Abdomen: Soft, nontender, no organomegaly, bowel sounds present Neuro: No focal deficits, no facial deformity, AO x3, moving all the limbs Urinary Catheter Management^: Dennis: Cath Placed During This Visit: yes Reason for Continuing Indwelling Catheter: Accurate Measurement of Urinary Output in Critically Ill Patients Urinary Catheter Date of Insertion: 02/05/20 Urinary Catheter Time of Insertion: 15:35 Data : 02/11/20 04:26 02/11/20 04:26 Micro: Microbiology 02/04/20 11:55 Blood Culture - Final Blood Coagulase negativ staphylococc 02/04/20 16:00 Anaerobic Culture - Final Elbow - #1 02/04/20 16:00 Gram Stain - Final Elbow - 20 Days Old Wound Culture - Final A&P Assessment and plan (1) Comfort measures only status: Status: Acute Code(s): Z51.5 - Encounter for palliative care (2) COPD exacerbation: Status: Acute Code(s): J44.1 - Chronic obstructive pulmonary disease with (acute) exacerbation (3) Shock: Status: Acute Code(s): R57.9 - Shock, unspecified (4) Pneumonia: Status: Acute Code(s): J18.9 - Pneumonia, unspecified organism (5) Acute and chronic respiratory failure: Status: Acute Code(s): J96.20 - Acute and chronic respiratory failure, unspecified whether with hypoxia or hypercapnia (6) GI bleeding: Status: Acute Code(s): K92.2 - Gastrointestinal hemorrhage, unspecified (7) Paroxysmal A-fib: Status: Acute Code(s): I48.0 - Paroxysmal atrial fibrillation (8) Chronic steroid use: Status: Acute Additional A&P Information COMFORT CARE MEASURES ONLY. MOrphine 2mg IV Q1h as needed for air hunger Atiivan 1 mg IV Q1h for anxiety. Scopolamine. IVF 75 cc/hr. No labs, vitals as per protocol. Oxygen supplementation. CT scan done early in the morning shows no sign of any infiltrate, no consolidation, no fluid overload but is concerning for severe emphysematous disease. As stated above given the CT results and constant BiPAP dependence, worsening renal functions and liver functions which is consistent with multiorgan dysfunction patient and family decided for comfort measures. Attestations Medical Necessity Statement*: comfort care Time Spent in Patient Care: Greater than 35 minutes Coding Level of Care Code Acute Water Treatment Operator for Kaylee Fwd Diagnoses Comfort measures only status Z51.5 COPD exacerbation J44.1 Shock R57.9 Pneumonia J18.9 Acute and chronic respiratory failure J96.20 GI bleeding K92.2 Paroxysmal A-fib I48.0 Chronic steroid use
[2020-02-12 18:35] LABS: Oxygen Device BIPAP
[2020-02-12 18:36] LABS: Oxygen Device BIPAP
--- NOTE | 2020-02-12 20:49 | PC.NURSE ---
PATIENT PASSED AT 2028, ASYSTOLE CONFIRMED IN TWO LEADS. NO HEART TONES AUSCULTATED, SECOND NURSE REMI FARAH. NO BLOOD PRESSURE ATTAINABLE. FAMILY AT BEDSIDE. PATIENT APPEARED COMFORTABLE. DR HERNANDEZ WAS NOTIFIED. [facility] WAS NOTIFIED WELL, THEY STATED THAT THEY WILL CONTACT FAMILY.
--- NOTE | 2020-02-12 21:06 | P.DES_ITS ---
Discharge Providers DDS Date of Admission: 02/04/20 13:37 Date Summary Completed: 02/12/20 Attending Provider at Admission: Rommel Rand Time of : 20:29 Attending Provider at Discharge: Castillo Ram MD Primary Care Provider: Leatha Alvarez MD DS Diagnoses Hospital Diagnoses (1) Comfort measures only status: (2) COPD exacerbation: (3) Shock: (4) Pneumonia: (5) Acute and chronic respiratory failure: (6) GI bleeding: (7) Paroxysmal A-fib: (8) Chronic steroid use: Reason for Visit Reason for Visit: Reason For Visit: DIFFICULTY BREATHING Summary Date and Time of : Date of : 02/12/20 Time of : 20:29 Summary: Summary: Mauricio Bah SR is a 79 year old male with severe COPD, currently on 4 L oxygen at home. On chronic prednisone [address] Ruggiero in [place], was recently admitted here with GI bleeding while on chronic anticoagulation with Eliquis due to A. fib, with endoscopic evaluation not identifying a clear source, possibly gastritis, versus diverticular bleed. This had resolved, and he tolerated well restarting anticoagulation. He presented on February 03 due to cough, dyspnea, beginning with dry cough last night, then turning into productive cough this morning, severe dyspnea at rest. Son reports that he had some home health aides who came to see him last week who were ill. Chest x-ray does not reveal pneumonia. Rapid influenza screen is negative. He has mild tachycardia in the 90s, but no fever or leukocytosis. He is tachypneic at 24 breaths/min. ABG 7.35/66.9/144 on 40% FiO2 decreasing respiratory distress patient was admitted to the ICU with BiPAP. Pulmonology consult was done. As patient breathing status did not improve CODE STATUS was confirmed with the patient and he agreed to be getting intubated. Patient was put on invasive ventilation because of developing of respiratory failure and respiratory acidosis on February 04. He was started on broad-spectrum antibiotics and nebulizations and he was maintained on pressors for septic shock. Due to concerns for exposure to coronavirus COVID testing was done which was pronounced negative on February 08. Patient was able to wake up on ventilator and able to initiate his own breath so he was extubated to BiPAP. Post extubation patient continued to be BiPAP dependent and would have extreme hypoxia and gasping for air along with hypercapnia even on high flow so he is maintained on BiPAP. CT chest was done which was negative for any consolidation or fluid but was concerning for severe middle and apical bilateral emphysema so goals of care was discussed with the patient and the family and he decided about comfort measures. Patient was put on comfort measures on February 10 and pressor support was gradually weaned. Patient had asystole on February 11 at around 20: 29 and was pronounced by RN. Patient's family was bedside and he was comfortable in his end time. Additional Data: Advance directives?: No Discharge Plan Discharge Patient Disposition: Condition: Stable Referrals: Leatha Alvarez MD [Primary Care Provider] - Probable Cause of Probable cause of : Acute respiratory failure with hypoxia and hypercapnia DS Attestations Time Spent in /Discharge Care*: less than 30 min Quality - AMI: AMI present?: No Quality - Stroke: CVA present?: No Quality - VTE: VTE present?: No Deep Vein Thrombosis/Pulmonary Embolism Present on Admission: No Coding Level of Care Code Acute Top Lift Trimmer for Chg Fwd Diagnoses Comfort measures only status Z51.5 COPD exacerbation J44.1 Shock R57.9 Pneumonia J18.9 Acute and chronic respiratory failure J96.20 GI bleeding K92.2 Paroxysmal A-fib I48.0 Chronic steroid use
--- NOTE | 2020-02-13 00:27 | PC.NURSE ---
DIALLO CAME AND PICKED UP MR DALEY.
== END 2020-02-12 20:29 | disposition expired | DRG 208 ==
LOC: ER 11:57 → ICU 14:59
PROVIDERS: Internal Medicine Critical Care Medicine; Student in an Organized Health Care Education/Training Program; Admitting Provider Internal Medicine; Emergency Provider Family Medicine; Family Provider Family Medicine; PCP Family Medicine; Visit Provider Student in an Organized Health Care Education/Training Program
DX: J96.01 Acute respiratory failure with hypoxia (principal); J18.9 Pneumonia, unspecified organism; J44.1 Chronic obstructive pulmonary disease with (acute) exacerbation; K92.2 Gastrointestinal hemorrhage, unspecified; R57.9 Shock, unspecified; J44.0 Chronic obstructive pulmonary disease with (acute) lower respiratory infection; I48.0 Paroxysmal atrial fibrillation; Z99.81 Dependence on supplemental oxygen; Z79.52 Long term (current) use of systemic steroids; Z79.01 Long term (current) use of anticoagulants; Z51.5 Encounter for palliative care; Z87.891 Personal history of nicotine dependence; F41.8 Other specified anxiety disorders; N40.0 Benign prostatic hyperplasia without lower urinary tract symptoms; M81.0 Age-related osteoporosis without current pathological fracture
CPT/HCPCS: 12345; 36415; 36592; 36600; 51702; 71045; 71250; 76882; 80048; 80051; 80053; 80202; 81001; 82533; 82803; 82810; 83605; 83880; 83986; 84145; 84484; 85025; 87040; 87070; 87075; 87086; 87205; 87635; 87641; 87804; 92610; 93005; 94002; 94003; 94640; 94660; 94799; 96372; 96375; 99282; A4570; C1751; C9113; J0131; J1650; J1940; J1956; J2060; J2250; J2270; J2543; J2704; J2920; J3010; J3370; J3480; J3490; J7030; J7050; J7614; J7626; J7644; J7799